=== PATIENT | female | born 1950 | race Caucasian/White ===

== ENCOUNTER 2018-10-30 16:26 | Emergency (ER) | payer MEDICARE, OTHER, SELFPAY ==
--- NOTE | 2018-10-30 | DI.RAD.S_ITS ---
PROCEDURE: XR FEMUR LT MIN 2V INDICATIONS: FALL TECHNIQUE: 2 views of the femur were acquired. COMPARISON: None. FINDINGS: Bones: Comminuted fracture of the distal left femur is noted. Postsurgical changes compatible with prior left knee arthroplasty. Soft tissues: No suspicious soft tissue calcifications or masses. IMPRESSION: Distal left femur periprosthetic fracture. Dictated by: Stacie Dias MD, PhD on 10/30/2018 at 17:30 Approved by: Stacie Dias MD, PhD on 10/30/2018 at 17:30
--- NOTE | 2018-10-30 | DI.RAD.S_ITS ---
PROCEDURE: XR CHEST 1V INDICATIONS: FALL TECHNIQUE: One view of the chest was acquired. COMPARISON: None. FINDINGS: Surgical changes and devices: None. Lungs and pleura: On this supine examination, no large pneumothorax or large pleural effusions are seen. No focal areas of lung consolidation are seen. Low lung volumes are noted. This causes a crowded appearance to the lung markings and limits evaluation. Mediastinum: Mediastinal contours appear normal. Heart size is normal. Bones and chest wall: No suspicious bony lesions. Age-appropriate bony degenerative changes are seen. Overlying soft tissues appear unremarkable. IMPRESSION: Limited portable chest examination, without a significant acute abnormality identified. If there is strong clinical concern for an intrathoracic posttraumatic abnormality, then please consider a dedicated chest CT with contrast for further evaluation. Dictated by: Prabhu Chan M.D. on 10/30/2018 at 16:20 Approved by: Prabhu Chan M.D. on 10/30/2018 at 16:21
[2018-10-30 16:34] VITALS: BP 198/105; PULSE 80; RESP 18; TEMP 36.7; O2SAT 100
--- NOTE | 2018-10-30 16:49 | DI.RAD.S_ITS ---
PROCEDURE: XR KNEE LT 3V INDICATIONS: fall / pain TECHNIQUE: 3 views of the knee were acquired. COMPARISON: None. FINDINGS: Bones: Postsurgical changes compatible with prior left knee arthroplasty noted. Hamate fracture of the distal femur fracture. Soft tissues: No joint effusion. No suspicious soft tissue calcifications. IMPRESSION: Distal left femur periprosthetic fracture. Dictated by: Stacie Dias MD, PhD on 10/30/2018 at 17:29 Approved by: Stacie Dias MD, PhD on 10/30/2018 at 17:29
--- NOTE | 2018-10-30 16:49 | DI.RAD.S_ITS ---
PROCEDURE: XR TIBIA FIBULA RT 2V INDICATIONS: fall / pain TECHNIQUE: 2 views of the tibia and fibula were acquired. COMPARISON: None. FINDINGS: Bones: No fractures or dislocations. No suspicious bony lesions. Large calcaneal bone spur is incidentally noted. Soft tissues: No suspicious soft tissue calcifications or masses. IMPRESSION: No fracture. No osseous lesion. If there are persistent symptoms or clinical suspicion for pathology, then repeat radiographs or advanced imaging (CT, MRI or bone scan) should be considered for further evaluation. Dictated by: Stacie Dias MD, PhD on 10/30/2018 at 17:27 Approved by: Stacie Dias MD, PhD on 10/30/2018 at 17:27
--- NOTE | 2018-10-30 16:49 | DI.RAD.S_ITS ---
PROCEDURE: XR HAND RT MIN 3V INDICATIONS: fall / pain TECHNIQUE: 3 views of the hand(s) acquired. COMPARISON: None. FINDINGS: Bones: Comminuted fracture of the distal radius which extends into the radiocarpal and distal radioulnar joints noted. Displaced ulnar styloid process fracture. Soft tissues: No suspicious soft tissue calcifications. IMPRESSION: Distal radius and ulna fractures. Dictated by: Stacie Dias MD, PhD on 10/30/2018 at 17:28 Approved by: Stacie Dias MD, PhD on 10/30/2018 at 17:28
--- NOTE | 2018-10-30 17:07 | DI.CT.S_ITS ---
PROCEDURE: CT LE LT W CON INDICATIONS: fracture - left femur TECHNIQUE: Noncontrast 3 mm axial sections acquired of the left femur, with coronal and sagittal reformats. COMPARISON: None. FINDINGS: Image quality: Excellent. Bones: Postsurgical changes compatible with left knee arthroplasty noted. Comminuted fracture of the left femur is noted. Fracture fragments are displaced medially and proximally. Soft tissues: Mild soft tissue swelling noted adjacent to the distal left femur fracture. Scattered atherosclerotic calcifications noted in the visualized pelvic and left lower extremity musculature. Scattered diverticuli noted in the visualized colon without evidence of diverticulitis. IMPRESSION: Distal left femur comminuted periprosthetic fracture. Dictated by: Stacie Dias MD, PhD on 10/30/2018 at 17:31 Approved by: Stacie Dias MD, PhD on 10/30/2018 at 17:33
--- NOTE | 2018-10-30 17:13 | ED.LOWEXIN ---
HPI - Extremity Injury (Lower) <Mikayla Faith, [employer]ER-BC - Last Filed: 10/30/18 21:07> General Chief Complaint: Extremity Injury, Lower Stated Complaint: L knee pain and R wrist Time Seen by Provider: 10/30/18 17:20 Source: patient, family and EMS Mode of arrival: EMS Limitations: no limitations History of Present Illness HPI Narrative: The patient is a 68-year-old female former smoker presents with her and family by EMS. She had a ground level fall just prior to arrival and complains of left leg as well as right wrist pain. she has a history of stroke, is on Plavix. She states she hit her head. Denies loss of consciousness. Does not complain of nausea vomiting or diarrhea. She does not have fever. She insists that she tripped and fell and that it was a mechanical fall. She denies any lightheadedness. She denies any neck or back pain, but states that her pain is mostly around her left knee. She states that her tetanus was within the past 5 years and is up-to-date. She does have history of knee replacements. Related Data Home Medications Medication Instructions Recorded Confirmed albuterol sulfate [Ventolin HFA] 2 puff INH Q4HP PRN #0 puff 04/26/13 10/30/18 oxybutynin chloride 15 mg PO BID #0 04/26/13 10/30/18 amlodipine [Norvasc] 5 mg PO DAILY #0 05/02/17 10/30/18 atorvastatin 80 mg PO BEDTIME #0 05/02/17 10/30/18 fluticasone propionate [Flonase 1 spray INTRANASAL BID #0 05/02/17 10/30/18 Allergy Relief] amoxicillin 2,000 mg PO .ONCE 10/30/18 10/30/18 cholecalciferol (vitamin D3) 5,000 unit PO DAILY 10/30/18 10/30/18 [Vitamin D3] clopidogrel 75 mg PO DAILY 10/30/18 10/30/18 losartan 100 mg PO DAILY 10/30/18 10/30/18 methocarbamol 1,500 mg PO Q6HP PRN 10/30/18 10/30/18 Allergies Allergy/AdvReac Type Severity Reaction Status Date / Time adhesive [ADHESIVE] Allergy Severe WATER Verified 10/30/18 16:36 BLISTERS *PAPER/SILK TAPE OK* chicken derived Allergy Severe DIARRHEA, Verified 10/30/18 16:36 [CHICKEN DERIVED] VOMITING, STOMACH CRAMPS Review of Systems <JEANNE Navarro - Last Filed: 10/30/18 21:07> Review of Systems GENERAL: Denies chills, fatigue, malaise, fever, sweats. HEENT: Denies sinus pain, ear pain, sore throat, difficulty swallowing, dizziness. RESPIRATORY: Denies dyspnea, cough, wheezing, hemoptysis, sputum. CARDIOVASCULAR: Denies chest pain, palpitations, orthopnea, edema, GASTROINTESTINAL: Denies nausea, vomiting, abdominal pain, diarrhea, constipation, melena. : Denies dysuria, frequency, incontinence, hematuria, urinary retention. MUSCULOSKELETAL: See HPI SKIN: See HPI NEUROLOGIC: Denies weakness, headache, numbness, change in speech, confusion, seizures, incoordination. PSYCHIATRIC: No concerning psychosocial issues. 12 point review of systems is negative except for those stated above PFSH <JEANNE Navarro - Last Filed: 10/30/18 21:07> Medical History (Updated 10/30/18 @ 20:54 by JEANNE Navarro) Morbid obesity (Acute) Social History Smoking Status: Former smoker Social History Smoking Status: Former smoker Exam <JEANNE Navarro - Last Filed: 10/30/18 21:07> Narrative Exam Narrative: GENERAL: Morbidly obese patient lying on stretcher HEAD: Atraumatic. Normocephalic. No temporal or scalp tenderness. EYES: Pupils equal round and reactive. Extraocular motions intact. No scleral icterus. No injection or drainage. ENT: Nose without bleeding, purulent drainage or septal hematoma. Throat without erythema, tonsillar hypertrophy or exudate. Uvula midline. Airway patent. NECK: Trachea midline. No JVD or lymphadenopathy. Supple, nontender, no meningeal signs. CARDIOVASCULAR: Regular rate and rhythm without murmurs, gallops, or rubs. RESPIRATORY: Clear to auscultation. Breath sounds equal bilaterally. No wheezes, rales, or rhonchi. No cough. No increased respiratory effort. GASTROINTESTINAL: Abdomen soft, non-tender, nondistended. No hepato-splenomegaly, or palpable masses. No guarding. active bowel sounds. EXTREMITIES: EMS splint in place left leg. Positive pedal pulses left foot. Patient is able to wiggle left toes. Pain to palpation right wrist. Positive radial pulse right wrist. BACK: Nontender without deformity or crepitance. No flank tenderness. NEURO: AOx3. Interactive. Appropriate. SKIN: Laceration noted right hand Initial Vital Signs Initial Vital Signs: Vital Signs Temperature 98.0 F 10/30/18 16:34 Pulse Rate 80 10/30/18 16:34 Respiratory Rate 18 10/30/18 16:34 Blood Pressure 198/105 H 10/30/18 16:34 Pulse Oximetry 100 10/30/18 16:34 <Prosper Lagunas MD - Last Filed: 10/31/18 02:03> Initial Vital Signs Initial Vital Signs: Vital Signs Temperature 98.0 F 10/30/18 16:34 Pulse Rate 80 10/30/18 16:34 Respiratory Rate 18 10/30/18 16:34 Blood Pressure 198/105 H 10/30/18 16:34 Pulse Oximetry 100 10/30/18 16:34 Procedures <JEANNE Navarro - Last Filed: 10/30/18 21:07> Orthopedic Splinting/Casting Injury #1: Side: right Upper Extremity Injury Location: wrist Upper Extremity Immobilizer: wrist splint Post splinting neuro exam: intact Post splinting vascular exam: intact Placed by: Nursing Course <JEANNE Navarro - Last Filed: 10/30/18 21:07> Orders Ordered: ED Orders 10/30/18 17:07 CT LE LT wo con Stat 10/30/18 17:25 CT head/brain wo con Stat 10/30/18 18:45 Complete Blood Count AUTO DIFF Stat Comprehensive Metabolic Panel Stat Type and Screen Stat 10/30/18 19:25 Partial Thromboplastin Time Stat Prothrombin Time INR Stat Discontinued Medications Sodium Chloride (Normal Saline 0.9%) 1,000 mls @ 1,000 mls/hr IV BOLUS ONE Stop: 10/30/18 18:25 Last Infusion: 10/30/18 20:20 Dose: 0 mls/hr Admin: 10/30/18 18:25 Dose: 1,000 mls/hr Morphine Sulfate (Morphine) 4 mg IV NOW ONE Stop: 10/30/18 17:27 Last Admin: 10/30/18 17:25 Dose: 4 mg Morphine Sulfate (Morphine) 4 mg IV PRN PRN PRN Reason: Pain, Moderate (4-6) Last Admin: 10/30/18 19:14 Dose: 4 mg Ondansetron HCl (Zofran) 4 mg IV NOW ONE Stop: 10/30/18 17:27 Last Admin: 10/30/18 17:30 Dose: 4 mg Vital Signs - 8 hr 10/30/18 18:30 10/30/18 19:00 10/30/18 19:49 Temperature Pulse Rate 60 78 Respiratory Rate 14 20 18 Blood Pressure Blood Pressure [Right Arm] 145/88 H 118/88 133/102 H Pulse Oximetry 98 2 L 94 10/30/18 20:40 Temperature 98.0 F Pulse Rate 78 Respiratory Rate 18 Blood Pressure 128/81 Blood Pressure [Right Arm] Pulse Oximetry 94 <Prosper Lagunas MD - Last Filed: 10/31/18 02:03> Orders Ordered: ED Orders 10/30/18 17:07 CT LE LT wo con Stat 10/30/18 17:25 CT head/brain wo con Stat 10/30/18 18:45 Complete Blood Count AUTO DIFF Stat Comprehensive Metabolic Panel Stat Type and Screen Stat 10/30/18 19:25 Partial Thromboplastin Time Stat Prothrombin Time INR Stat Discontinued Medications Sodium Chloride (Normal Saline 0.9%) 1,000 mls @ 1,000 mls/hr IV BOLUS ONE Stop: 10/30/18 18:25 Last Infusion: 10/30/18 20:20 Dose: 0 mls/hr Admin: 10/30/18 18:25 Dose: 1,000 mls/hr Morphine Sulfate (Morphine) 4 mg IV NOW ONE Stop: 10/30/18 17:27 Last Admin: 10/30/18 17:25 Dose: 4 mg Morphine Sulfate (Morphine) 4 mg IV PRN PRN PRN Reason: Pain, Moderate (4-6) Last Admin: 10/30/18 19:14 Dose: 4 mg Ondansetron HCl (Zofran) 4 mg IV NOW ONE Stop: 10/30/18 17:27 Last Admin: 10/30/18 17:30 Dose: 4 mg Vital Signs - 8 hr 10/30/18 18:30 10/30/18 19:00 10/30/18 19:49 Temperature Pulse Rate 60 78 Respiratory Rate 14 20 18 Blood Pressure Blood Pressure [Right Arm] 145/88 H 118/88 133/102 H Pulse Oximetry 98 2 L 94 10/30/18 20:40 Temperature 98.0 F Pulse Rate 78 Respiratory Rate 18 Blood Pressure 128/81 Blood Pressure [Right Arm] Pulse Oximetry 94 MDM - Extremity Injury (Lower) <ALEXANDR Navarro-BC - Last Filed: 10/30/18 21:07> Lab Data Result diagrams: 10/30/18 18:45 10/30/18 18:45 Lab Results 10/30/18 10/30/18 10/30/18 Range/Units 18:45 18:45 18:45 WBC 16.5 H (4.5-11.0) X10^3/uL RBC 4.44 (4.0-5.2) X10^6/uL Hgb 13.3 (12.0-16.0) g/dL Hct 40.8 (36-46) % MCV 91.8 (80-100) fL MCH 29.9 (26-34) PG MCHC 32.6 (30-36) % RDW 15.8 H (11.6-14.8) % Plt Count 173 (150-400) X10^3/uL Neut % (Auto) 86.9 H (50-75) % Lymph % (Auto) 5.9 L (25-40) % [place] % (Auto) 6.5 (3-14) % Eos % (Auto) 0.3 L (2-4) % Baso % (Auto) 0.4 (0-2) % Neut # (Auto) 25431 H (3933-9689) /uL Lymph # (Auto) 1000 L (9965-3240) /uL [place] # (Auto) 1100 H (0-900) /uL Eos # (Auto) 0 (0-450) /uL Baso # (Auto) 100 (0-100) /uL PT (10.1-12.7) SECONDS INR (0.9-1.3) APTT (26.4-36.2) SECONDS Sodium 137 (137-145) mmol/L Potassium 4.5 (3.4-5.1) mmol/L Chloride 103 (98-107) mmol/L Carbon Dioxide 26 (22-32) mmol/L BUN 24 H (7-17) mg/dL Creatinine 0.90 (0.52-1.04) mg/dL Estimated GFR > 60.0 (>60) mL/min BUN/Creatinine Ratio 26.7 H (6-22) Glucose 139 H (80-110) mg/dL Calcium 9.1 (8.4-10.2) mg/dL Total Bilirubin 0.6 (0.2-1.3) mg/dL AST 170 H (14-36) IU/L ALT 121 H (9-52) IU/L Alkaline Phosphatase 105 (38-126) U/L Total Protein 7.8 (6.3-8.2) g/dL Albumin 3.6 (3.5-5.0) g/dL Globulin 4.2 H (1.7-4.1) g/dL Albumin/Globulin Ratio 0.9 L (1.0-2.8) Blood Type A Positive Antibody Screen Negative 10/30/18 Range/Units 19:25 WBC (4.5-11.0) X10^3/uL RBC (4.0-5.2) X10^6/uL Hgb (12.0-16.0) g/dL Hct (36-46) % MCV (80-100) fL MCH (26-34) PG MCHC (30-36) % RDW (11.6-14.8) % Plt Count (150-400) X10^3/uL Neut % (Auto) (50-75) % Lymph % (Auto) (25-40) % [place] % (Auto) (3-14) % Eos % (Auto) (2-4) % Baso % (Auto) (0-2) % Neut # (Auto) (6712-8266) /uL Lymph # (Auto) (0724-5086) /uL [place] # (Auto) (0-900) /uL Eos # (Auto) (0-450) /uL Baso # (Auto) (0-100) /uL PT 12.6 (10.1-12.7) SECONDS INR 1.1 (0.9-1.3) APTT 25 L (26.4-36.2) SECONDS Sodium (137-145) mmol/L Potassium (3.4-5.1) mmol/L Chloride (98-107) mmol/L Carbon Dioxide (22-32) mmol/L BUN (7-17) mg/dL Creatinine (0.52-1.04) mg/dL Estimated GFR (>60) mL/min BUN/Creatinine Ratio (6-22) Glucose (80-110) mg/dL Calcium (8.4-10.2) mg/dL Total Bilirubin (0.2-1.3) mg/dL AST (14-36) IU/L ALT (9-52) IU/L Alkaline Phosphatase (38-126) U/L Total Protein (6.3-8.2) g/dL Albumin (3.5-5.0) g/dL Globulin (1.7-4.1) g/dL Albumin/Globulin Ratio (1.0-2.8) Blood Type Antibody Screen Imaging Data CT scan - head: Radiologist's impression: [place] [address] CT Scan Report Signed Patient: Socorro Valenzuela CMR#: [id number] : 8Acct:[id number] Age/Sex: 68 / FDate of Service: 10/30/18 Loc: Accession Number: [id number] Procedure: CT head/brain wo con Ordering Provider: Mikayla Faith [facility] PROCEDURE: CT HEAD/BRAIN WO CON INDICATIONS: glf on plavix TECHNIQUE: Noncontrast 4.5 mm thick angled axial sections acquired from the foramen magnum to the vertex, with coronal and sagittal reformats. For radiation dose reduction, the following was used: automated exposure control, adjustment of mA and/or kV according to patient size. COMPARISON: None. FINDINGS: Image quality: Excellent. CSF spaces: Basal cisterns are patent. No extra-axial fluid collections. The ventricles are symmetric in size and shape. Brain: No intracranial bleeds or masses. Chronic right thalamic and right putamen lacunar infarcts. There is moderate cerebral volume loss for age, with resultant ventricular and sulcal prominence. There are severe periventricular and deep white matter chronic small vessel ischemic changes. There is intracranial internal carotid artery and vertebral artery atherosclerosis. Skull and face: Calvarium and visualized facial bones appear intact, without suspicious lesions. Sinuses: Visualized sinuses and mastoids are clear. IMPRESSION: 1. No acute intracranial disease process. 2. No intracranial hemorrhage. 3. Old right thalamic and right putamen lacunar infarcts. 4. Moderate, diffuse cerebral volume loss. 5. Severe periventricular and subcortical white matter chronic microvascular ischemic changes. Dictated by: Stacie Dias MD, PhD on 10/30/2018 at 18:39 Approved by: Stacie Dias MD, PhD on 10/30/2018 at 18:[address]: Radiologist's impression: [address] [address] [address] Scan Report Signed Patient: Socorro Valenzuela CMR#: [id number] : 8Acct:[id number] Age/Sex: 68 / FDate of Service: 10/30/18 Loc: ED Accession Number: [id number] Procedure: CT LE LT wo con Ordering Provider: Mikayla Faith [facility] PROCEDURE: CT LE LT W CON INDICATIONS: fracture - left femur TECHNIQUE: Noncontrast 3 mm axial sections acquired of the left femur, with coronal and sagittal reformats. COMPARISON: None. FINDINGS: Image quality: Excellent. Bones: Postsurgical changes compatible with left knee arthroplasty noted. Comminuted fracture of the left femur is noted. Fracture fragments are displaced medially and proximally. Soft tissues: Mild soft tissue swelling noted adjacent to the distal left femur fracture. Scattered atherosclerotic calcifications noted in the visualized pelvic and left lower extremity musculature. Scattered diverticuli noted in the visualized colon without evidence of diverticulitis. IMPRESSION: Distal left femur comminuted periprosthetic fracture. Dictated by: Stacie Dias MD, PhD on 10/30/2018 at 17:31 Approved by: Stacie Dias MD, PhD on 10/30/2018 at 17:33 hand xray right : Radiologist's impression: [address] [address] XRay Report Signed Patient: Socorro Valenzuela CMR#: [id number] : 8Acct:[id number] Age/Sex: 68 / FDate of Service: 10/30/18 Loc: ED Accession Number: [id number] Procedure: XR hand RT min 3V Ordering Provider: Mikayla Woodard D.O. PROCEDURE: XR HAND RT MIN 3V INDICATIONS: fall / pain TECHNIQUE: 3 views of the hand(s) acquired. COMPARISON: None. FINDINGS: Bones: Comminuted fracture of the distal radius which extends into the radiocarpal and distal radioulnar joints noted. Displaced ulnar styloid process fracture. Soft tissues: No suspicious soft tissue calcifications. IMPRESSION: Distal radius and ulna fractures. Dictated by: Stacie Dias MD, PhD on 10/30/2018 at 17:28 Approved by: Stacie Dias MD, PhD on 10/30/2018 at 17:28 left knee xray : Radiologist's impression: Socorro Valenzuela 68 F [address] [address] XRay Report Signed Patient: Socorro Valenzuela CMR#: [id number] : 1950cct:[id number] Age/Sex: 68 / FDate of Service: 10/30/18 Loc: ED Accession Number: [id number] Procedure: XR knee LT 3V Ordering Provider: Mikayla Woodard D.O. PROCEDURE: XR KNEE LT 3V INDICATIONS: fall / pain TECHNIQUE: 3 views of the knee were acquired. COMPARISON: None. FINDINGS: Bones: Postsurgical changes compatible with prior left knee arthroplasty noted. Hamate fracture of the distal femur fracture. Soft tissues: No joint effusion. No suspicious soft tissue calcifications. IMPRESSION: Distal left femur periprosthetic fracture. Dictated by: Stacie Dias MD, PhD on 10/30/2018 at 17:29 Approved by: Stacie Dias MD, PhD on 10/30/2018 at 17:29 left tib fib : Radiologist's impression: Socorro Valenzuela 68 F [address] [address] XRay Report Signed Patient: Socorro Valenzuela CMR#: [id number] : 8Acct:[id number] Age/Sex: 68 / FDate of Service: 10/30/18 Loc: ED Accession Number: [id number] Procedure: XR tibia fibula LT 2V Ordering Provider: Mikayla Woodard D.O. PROCEDURE: XR TIBIA FIBULA RT 2V INDICATIONS: fall / pain TECHNIQUE: 2 views of the tibia and fibula were acquired. COMPARISON: None. FINDINGS: Bones: No fractures or dislocations. No suspicious bony lesions. Large calcaneal bone spur is incidentally noted. Soft tissues: No suspicious soft tissue calcifications or masses. IMPRESSION: No fracture. No osseous lesion. If there are persistent symptoms or clinical suspicion for pathology, then repeat radiographs or advanced imaging (CT, MRI or bone scan) should be considered for further evaluation. Dictated by: Stacie Dias MD, PhD on 10/30/2018 at 17:27 Approved by: Stacie Dias MD, PhD on 10/30/2018 at 17:27 [facility] Narrative Medical decision making narrative: The patient is a 68-year-old female who presents after a ground level fall with a complicated femur fracture. I spoke with Dr. Gruber from [facility], who states that the patient's case is too complicated for this facility. Thus the images were pushed down to [facility] and I spoke with Dr. Jacobs at 6:42 p.m who kindly accepted the patient for transfer. The patient was hemodynamically stable throughout her stay in the emergency department. She was treated with morphine for pain. a removable wrist splint was placed for comfort prior to specialist evaluation. She was neurovascularly intact throughout her stay in the emergency department. Patient has no questions or concerns regarding transfer and is okay with transfer. <Prosper Lagunas MD - Last Filed: 10/31/18 02:03> Lab Data Lab Results 10/30/18 10/30/18 10/30/18 Range/Units 18:45 18:45 18:45 WBC 16.5 H (4.5-11.0) X10^3/uL RBC 4.44 (4.0-5.2) X10^6/uL Hgb 13.3 (12.0-16.0) g/dL Hct 40.8 (36-46) % MCV 91.8 (80-100) fL MCH 29.9 (26-34) PG MCHC 32.6 (30-36) % RDW 15.8 H (11.6-14.8) % Plt Count 173 (150-400) X10^3/uL Neut % (Auto) 86.9 H (50-75) % Lymph % (Auto) 5.9 L (25-40) % [place] % (Auto) 6.5 (3-14) % Eos % (Auto) 0.3 L (2-4) % Baso % (Auto) 0.4 (0-2) % Neut # (Auto) 62285 H (0592-4650) /uL Lymph # (Auto) 1000 L (6995-9033) /uL [place] # (Auto) 1100 H (0-900) /uL Eos # (Auto) 0 (0-450) /uL Baso # (Auto) 100 (0-100) /uL PT (10.1-12.7) SECONDS INR (0.9-1.3) APTT (26.4-36.2) SECONDS Sodium 137 (137-145) mmol/L Potassium 4.5 (3.4-5.1) mmol/L Chloride 103 (98-107) mmol/L Carbon Dioxide 26 (22-32) mmol/L BUN 24 H (7-17) mg/dL Creatinine 0.90 (0.52-1.04) mg/dL Estimated GFR > 60.0 (>60) mL/min BUN/Creatinine Ratio 26.7 H (6-22) Glucose 139 H (80-110) mg/dL Calcium 9.1 (8.4-10.2) mg/dL Total Bilirubin 0.6 (0.2-1.3) mg/dL AST 170 H (14-36) IU/L ALT 121 H (9-52) IU/L Alkaline Phosphatase 105 (38-126) U/L Total Protein 7.8 (6.3-8.2) g/dL Albumin 3.6 (3.5-5.0) g/dL Globulin 4.2 H (1.7-4.1) g/dL Albumin/Globulin Ratio 0.9 L (1.0-2.8) Blood Type A Positive Antibody Screen Negative 10/30/18 Range/Units 19:25 WBC (4.5-11.0) X10^3/uL RBC (4.0-5.2) X10^6/uL Hgb (12.0-16.0) g/dL Hct (36-46) % MCV (80-100) fL MCH (26-34) PG MCHC (30-36) % RDW (11.6-14.8) % Plt Count (150-400) X10^3/uL Neut % (Auto) (50-75) % Lymph % (Auto) (25-40) % [place] % (Auto) (3-14) % Eos % (Auto) (2-4) % Baso % (Auto) (0-2) % Neut # (Auto) (6247-0669) /uL Lymph # (Auto) (4755-2904) /uL [place] # (Auto) (0-900) /uL Eos # (Auto) (0-450) /uL Baso # (Auto) (0-100) /uL PT 12.6 (10.1-12.7) SECONDS INR 1.1 (0.9-1.3) APTT 25 L (26.4-36.2) SECONDS Sodium (137-145) mmol/L Potassium (3.4-5.1) mmol/L Chloride (98-107) mmol/L Carbon Dioxide (22-32) mmol/L BUN (7-17) mg/dL Creatinine (0.52-1.04) mg/dL Estimated GFR (>60) mL/min BUN/Creatinine Ratio (6-22) Glucose (80-110) mg/dL Calcium (8.4-10.2) mg/dL Total Bilirubin (0.2-1.3) mg/dL AST (14-36) IU/L ALT (9-52) IU/L Alkaline Phosphatase (38-126) U/L Total Protein (6.3-8.2) g/dL Albumin (3.5-5.0) g/dL Globulin (1.7-4.1) g/dL Albumin/Globulin Ratio (1.0-2.8) Blood Type Antibody Screen Discharge Plan Departure Patient Disposition: [facility] Clinical Impression: Fall from ground level Fracture of wrist Qualifiers: Encounter type: initial encounter Fracture type: closed Laterality: right Qualified Code(s): S62.101A - Fracture of unspecified carpal bone, right wrist, initial encounter for closed fracture Femur fracture, left Qualifiers: Encounter type: initial encounter Femur location: shaft Fracture type: closed Fracture morphology: comminuted Fracture alignment: displaced Qualified Code(s): S72.352A - Displaced comminuted fracture of shaft of left femur, initial encounter for closed fracture Discharge Date/Time: 10/30/18 20:45 Interventions: ED Discharge Assessment Last Done: 10/30/18 20:40 Prescriptions: No Action oxybutynin chloride 15 MG tablet extended release 24hr 15 mg PO BID Qty: 0 RF: 0 albuterol sulfate [Ventolin HFA] 90 MCG/PUFF HFA aerosol inhaler 2 puff INH Q4HP PRN (Reason: Shortness Of Breath) Qty: 0 RF: 0 amlodipine [Norvasc] 5 MG tablet 5 mg PO DAILY Qty: 0 RF: 0 atorvastatin 80 MG tablet 80 mg PO BEDTIME Qty: 0 RF: 0 fluticasone propionate [Flonase Allergy Relief] 9.9 ML spray,suspension 1 spray Intranasal BID Qty: 0 RF: 0 amoxicillin 500 mg Capsule 2,000 mg PO .ONCE RF: 0 clopidogrel 75 mg Tablet 75 mg PO DAILY RF: 0 losartan 100 mg Tablet 100 mg PO DAILY RF: 0 cholecalciferol (vitamin D3) [Vitamin D3] 5,000 unit Tablet 5,000 unit PO DAILY RF: 0 methocarbamol 750 MG tablet 1,500 mg PO Q6HP PRN (Reason: Spasms) RF: 0 Referrals: Duy Howell MD [Primary Care Provider] - <Prosper Lagunas MD - Last Filed: 10/31/18 02:03> Cosign ED Attending Cosignature Attestation: I was present in the ER at the time this patient's care. I was available for consultation or to see the patient directly if required. I agree with the evaluation, assessment and treatment plan.
[2018-10-30] MEDS: MORPHINE 4 MG/ML INJ IV ×2 (17:25→19:14)
--- NOTE | 2018-10-30 17:25 | DI.CT.S_ITS ---
PROCEDURE: CT HEAD/BRAIN WO CON INDICATIONS: glf on plavix TECHNIQUE: Noncontrast 4.5 mm thick angled axial sections acquired from the foramen magnum to the vertex, with coronal and sagittal reformats. For radiation dose reduction, the following was used: automated exposure control, adjustment of mA and/or kV according to patient size. COMPARISON: None. FINDINGS: Image quality: Excellent. CSF spaces: Basal cisterns are patent. No extra-axial fluid collections. The ventricles are symmetric in size and shape. Brain: No intracranial bleeds or masses. Chronic right thalamic and right putamen lacunar infarcts. There is moderate cerebral volume loss for age, with resultant ventricular and sulcal prominence. There are severe periventricular and deep white matter chronic small vessel ischemic changes. There is intracranial internal carotid artery and vertebral artery atherosclerosis. Skull and face: Calvarium and visualized facial bones appear intact, without suspicious lesions. Sinuses: Visualized sinuses and mastoids are clear. IMPRESSION: 1. No acute intracranial disease process. 2. No intracranial hemorrhage. 3. Old right thalamic and right putamen lacunar infarcts. 4. Moderate, diffuse cerebral volume loss. 5. Severe periventricular and subcortical white matter chronic microvascular ischemic changes. Dictated by: Stacie Dias MD, PhD on 10/30/2018 at 18:39 Approved by: Stacie Dias MD, PhD on 10/30/2018 at 18:42
[2018-10-30] MEDS: ONDANSETRON 4 MG/2 ML INJ IV (17:30)
--- NOTE | 2018-10-30 18:22 | ED_ITS ---
HPI - Extremity Injury (Lower) <Mikayla Faith, [employer]-BC - Last Filed: 10/30/18 21:07> General Chief Complaint: Extremity Injury, Lower Stated Complaint: L knee pain and R wrist Time Seen by Provider: 10/30/18 17:20 Source: patient, family and EMS Mode of arrival: EMS Limitations: no limitations History of Present Illness HPI Narrative: The patient is a 68-year-old female former smoker presents with her and family by EMS. She had a ground level fall just prior to arrival and complains of left leg as well as right wrist pain. she has a history of stroke, is on Plavix. She states she hit her head. Denies loss of consciousness. Does not complain of nausea vomiting or diarrhea. She does not have fever. She insists that she tripped and fell and that it was a mechanical fall. She denies any lightheadedness. She denies any neck or back pain, but states that her pain is mostly around her left knee. She states that her tetanus was within the past 5 years and is up-to-date. She does have history of knee replacements. Related Data Home Medications Medication Instructions Recorded Confirmed albuterol sulfate [Ventolin HFA] 2 puff INH Q4HP PRN #0 puff 04/26/13 10/30/18 oxybutynin chloride 15 mg PO BID #0 04/26/13 10/30/18 amlodipine [Norvasc] 5 mg PO DAILY #0 05/02/17 10/30/18 atorvastatin 80 mg PO BEDTIME #0 05/02/17 10/30/18 fluticasone propionate [Flonase 1 spray INTRANASAL BID #0 05/02/17 10/30/18 Allergy Relief] amoxicillin 2,000 mg PO .ONCE 10/30/18 10/30/18 cholecalciferol (vitamin D3) 5,000 unit PO DAILY 10/30/18 10/30/18 [Vitamin D3] clopidogrel 75 mg PO DAILY 10/30/18 10/30/18 losartan 100 mg PO DAILY 10/30/18 10/30/18 methocarbamol 1,500 mg PO Q6HP PRN 10/30/18 10/30/18 Allergies Allergy/AdvReac Type Severity Reaction Status Date / Time adhesive [ADHESIVE] Allergy Severe WATER Verified 10/30/18 16:36 BLISTERS *PAPER/SILK TAPE OK* chicken derived Allergy Severe DIARRHEA, Verified 10/30/18 16:36 [CHICKEN DERIVED] VOMITING, STOMACH CRAMPS Review of Systems <JEANNE Navarro - Last Filed: 10/30/18 21:07> Review of Systems GENERAL: Denies chills, fatigue, malaise, fever, sweats. HEENT: Denies sinus pain, ear pain, sore throat, difficulty swallowing, dizziness. RESPIRATORY: Denies dyspnea, cough, wheezing, hemoptysis, sputum. CARDIOVASCULAR: Denies chest pain, palpitations, orthopnea, edema, GASTROINTESTINAL: Denies nausea, vomiting, abdominal pain, diarrhea, constipation, melena. : Denies dysuria, frequency, incontinence, hematuria, urinary retention. MUSCULOSKELETAL: See HPI SKIN: See HPI NEUROLOGIC: Denies weakness, headache, numbness, change in speech, confusion, seizures, incoordination. PSYCHIATRIC: No concerning psychosocial issues. 12 point review of systems is negative except for those stated above PFSH <JEANNE Navarro - Last Filed: 10/30/18 21:07> Medical History (Updated 10/30/18 @ 20:54 by JEANNE Navarro) Morbid obesity (Acute) Social History Smoking Status: Former smoker Social History Smoking Status: Former smoker Exam <JEANNE Navarro - Last Filed: 10/30/18 21:07> Narrative Exam Narrative: GENERAL: Morbidly obese patient lying on stretcher HEAD: Atraumatic. Normocephalic. No temporal or scalp tenderness. EYES: Pupils equal round and reactive. Extraocular motions intact. No scleral icterus. No injection or drainage. ENT: Nose without bleeding, purulent drainage or septal hematoma. Throat without erythema, tonsillar hypertrophy or exudate. Uvula midline. Airway patent. NECK: Trachea midline. No JVD or lymphadenopathy. Supple, nontender, no meningeal signs. CARDIOVASCULAR: Regular rate and rhythm without murmurs, gallops, or rubs. RESPIRATORY: Clear to auscultation. Breath sounds equal bilaterally. No wheezes, rales, or rhonchi. No cough. No increased respiratory effort. GASTROINTESTINAL: Abdomen soft, non-tender, nondistended. No hepato- splenomegaly, or palpable masses. No guarding. active bowel sounds. EXTREMITIES: EMS splint in place left leg. Positive pedal pulses left foot. Patient is able to wiggle left toes. Pain to palpation right wrist. Positive radial pulse right wrist. BACK: Nontender without deformity or crepitance. No flank tenderness. NEURO: AOx3. Interactive. Appropriate. SKIN: Laceration noted right hand Initial Vital Signs Initial Vital Signs: Vital Signs Temperature 98.0 F 10/30/18 16:34 Pulse Rate 80 10/30/18 16:34 Respiratory Rate 18 10/30/18 16:34 Blood Pressure 198/105 H 10/30/18 16:34 Pulse Oximetry 100 10/30/18 16:34 <Prosper Lagunas MD - Last Filed: 10/31/18 02:03> Initial Vital Signs Initial Vital Signs: Vital Signs Temperature 98.0 F 10/30/18 16:34 Pulse Rate 80 10/30/18 16:34 Respiratory Rate 18 10/30/18 16:34 Blood Pressure 198/105 H 10/30/18 16:34 Pulse Oximetry 100 10/30/18 16:34 Procedures <JEANNE Navarro - Last Filed: 10/30/18 21:07> Orthopedic Splinting/Casting Injury #1: Side: right Upper Extremity Injury Location: wrist Upper Extremity Immobilizer: wrist splint Post splinting neuro exam: intact Post splinting vascular exam: intact Placed by: Nursing Course <JEANNE Navarro - Last Filed: 10/30/18 21:07> Orders Ordered: ED Orders 10/30/18 17:07 CT LE LT wo con Stat 10/30/18 17:25 CT head/brain wo con Stat 10/30/18 18:45 Complete Blood Count AUTO DIFF Stat Comprehensive Metabolic Panel Stat Type and Screen Stat 10/30/18 19:25 Partial Thromboplastin Time Stat Prothrombin Time INR Stat Discontinued Medications Sodium Chloride (Normal Saline 0.9%) 1,000 mls @ 1,000 mls/hr IV BOLUS ONE Stop: 10/30/18 18:25 Last Infusion: 10/30/18 20:20 Dose: 0 mls/hr Admin: 10/30/18 18:25 Dose: 1,000 mls/hr Morphine Sulfate (Morphine) 4 mg IV NOW ONE Stop: 10/30/18 17:27 Last Admin: 10/30/18 17:25 Dose: 4 mg Morphine Sulfate (Morphine) 4 mg IV PRN PRN PRN Reason: Pain, Moderate (4-6) Last Admin: 10/30/18 19:14 Dose: 4 mg Ondansetron HCl (Zofran) 4 mg IV NOW ONE Stop: 10/30/18 17:27 Last Admin: 10/30/18 17:30 Dose: 4 mg Vital Signs - 8 hr 10/30/18 18:30 10/30/18 19:00 10/30/18 19:49 Temperature Pulse Rate 60 78 Respiratory Rate 14 20 18 Blood Pressure Blood Pressure [Right Arm] 145/88 H 118/88 133/102 H Pulse Oximetry 98 2 L 94 10/30/18 20:40 Temperature 98.0 F Pulse Rate 78 Respiratory Rate 18 Blood Pressure 128/81 Blood Pressure [Right Arm] Pulse Oximetry 94 <Prosper Lagunas MD - Last Filed: 10/31/18 02:03> Orders Ordered: ED Orders 10/30/18 17:07 CT LE LT wo con Stat 10/30/18 17:25 CT head/brain wo con Stat 10/30/18 18:45 Complete Blood Count AUTO DIFF Stat Comprehensive Metabolic Panel Stat Type and Screen Stat 10/30/18 19:25 Partial Thromboplastin Time Stat Prothrombin Time INR Stat Discontinued Medications Sodium Chloride (Normal Saline 0.9%) 1,000 mls @ 1,000 mls/hr IV BOLUS ONE Stop: 10/30/18 18:25 Last Infusion: 10/30/18 20:20 Dose: 0 mls/hr Admin: 10/30/18 18:25 Dose: 1,000 mls/hr Morphine Sulfate (Morphine) 4 mg IV NOW ONE Stop: 10/30/18 17:27 Last Admin: 10/30/18 17:25 Dose: 4 mg Morphine Sulfate (Morphine) 4 mg IV PRN PRN PRN Reason: Pain, Moderate (4-6) Last Admin: 10/30/18 19:14 Dose: 4 mg Ondansetron HCl (Zofran) 4 mg IV NOW ONE Stop: 10/30/18 17:27 Last Admin: 10/30/18 17:30 Dose: 4 mg Vital Signs - 8 hr 10/30/18 18:30 10/30/18 19:00 10/30/18 19:49 Temperature Pulse Rate 60 78 Respiratory Rate 14 20 18 Blood Pressure Blood Pressure [Right Arm] 145/88 H 118/88 133/102 H Pulse Oximetry 98 2 L 94 10/30/18 20:40 Temperature 98.0 F Pulse Rate 78 Respiratory Rate 18 Blood Pressure 128/81 Blood Pressure [Right Arm] Pulse Oximetry 94 MDM - Extremity Injury (Lower) <ALEXANDR Navarro-BC - Last Filed: 10/30/18 21:07> Lab Data Result diagrams: 10/30/18 18:45 10/30/18 18:45 Lab Results 10/30/18 10/30/18 10/30/18 Range/Units 18:45 18:45 18:45 WBC 16.5 H (4.5-11.0) X10^3/uL RBC 4.44 (4.0-5.2) X10^6/uL Hgb 13.3 (12.0-16.0) g/dL Hct 40.8 (36-46) % MCV 91.8 (80-100) fL MCH 29.9 (26-34) PG MCHC 32.6 (30-36) % RDW 15.8 H (11.6-14.8) % Plt Count 173 (150-400) X10^3/uL Neut % (Auto) 86.9 H (50-75) % Lymph % (Auto) 5.9 L (25-40) % Ford % (Auto) 6.5 (3-14) % Eos % (Auto) 0.3 L (2-4) % Baso % (Auto) 0.4 (0-2) % Neut # (Auto) 79878 H (9853-3087) /uL Lymph # (Auto) 1000 L (2058-9196) /uL Ford # (Auto) 1100 H (0-900) /uL Eos # (Auto) 0 (0-450) /uL Baso # (Auto) 100 (0-100) /uL PT (10.1-12.7) SECONDS INR (0.9-1.3) APTT (26.4-36.2) SECONDS Sodium 137 (137-145) mmol/L Potassium 4.5 (3.4-5.1) mmol/L Chloride 103 (98-107) mmol/L Carbon Dioxide 26 (22-32) mmol/L BUN 24 H (7-17) mg/dL Creatinine 0.90 (0.52-1.04) mg/dL Estimated GFR > 60.0 (>60) mL/min BUN/Creatinine Ratio 26.7 H (6-22) Glucose 139 H (80-110) mg/dL Calcium 9.1 (8.4-10.2) mg/dL Total Bilirubin 0.6 (0.2-1.3) mg/dL AST 170 H (14-36) IU/L ALT 121 H (9-52) IU/L Alkaline Phosphatase 105 (38-126) U/L Total Protein 7.8 (6.3-8.2) g/dL Albumin 3.6 (3.5-5.0) g/dL Globulin 4.2 H (1.7-4.1) g/dL Albumin/Globulin Ratio 0.9 L (1.0-2.8) Blood Type A Positive Antibody Screen Negative 10/30/18 Range/Units 19:25 WBC (4.5-11.0) X10^3/uL RBC (4.0-5.2) X10^6/uL Hgb (12.0-16.0) g/dL Hct (36-46) % MCV (80-100) fL MCH (26-34) PG MCHC (30-36) % RDW (11.6-14.8) % Plt Count (150-400) X10^3/uL Neut % (Auto) (50-75) % Lymph % (Auto) (25-40) % Ford % (Auto) (3-14) % Eos % (Auto) (2-4) % Baso % (Auto) (0-2) % Neut # (Auto) (6562-3904) /uL Lymph # (Auto) (6638-6597) /uL Ford # (Auto) (0-900) /uL Eos # (Auto) (0-450) /uL Baso # (Auto) (0-100) /uL PT 12.6 (10.1-12.7) SECONDS INR 1.1 (0.9-1.3) APTT 25 L (26.4-36.2) SECONDS Sodium (137-145) mmol/L Potassium (3.4-5.1) mmol/L Chloride (98-107) mmol/L Carbon Dioxide (22-32) mmol/L BUN (7-17) mg/dL Creatinine (0.52-1.04) mg/dL Estimated GFR (>60) mL/min BUN/Creatinine Ratio (6-22) Glucose (80-110) mg/dL Calcium (8.4-10.2) mg/dL Total Bilirubin (0.2-1.3) mg/dL AST (14-36) IU/L ALT (9-52) IU/L Alkaline Phosphatase (38-126) U/L Total Protein (6.3-8.2) g/dL Albumin (3.5-5.0) g/dL Globulin (1.7-4.1) g/dL Albumin/Globulin Ratio (1.0-2.8) Blood Type Antibody Screen Imaging Data CT scan - head: Radiologist's impression: [place] [address] CT Scan Report Signed Patient: Socorro Valenzuela CMR#: [id number] : 8Acct:[id number] Age/Sex: 68 / FDate of Service: 10/30/18 Loc: Accession Number: [id number] Procedure: CT head/brain wo con Ordering Provider: Mikayla Faith [facility] PROCEDURE: CT HEAD/BRAIN WO CON INDICATIONS: glf on plavix TECHNIQUE: Noncontrast 4.5 mm thick angled axial sections acquired from the foramen magnum to the vertex, with coronal and sagittal reformats. For radiation dose reduction, the following was used: automated exposure control, adjustment of mA and/or kV according to patient size. COMPARISON: None. FINDINGS: Image quality: Excellent. CSF spaces: Basal cisterns are patent. No extra-axial fluid collections. The ventricles are symmetric in size and shape. Brain: No intracranial bleeds or masses. Chronic right thalamic and right putamen lacunar infarcts. There is moderate cerebral volume loss for age, with resultant ventricular and sulcal prominence. There are severe periventricular and deep white matter chronic small vessel ischemic changes. There is intracranial internal carotid artery and vertebral artery atherosclerosis. Skull and face: Calvarium and visualized facial bones appear intact, without suspicious lesions. Sinuses: Visualized sinuses and mastoids are clear. IMPRESSION: 1. No acute intracranial disease process. 2. No intracranial hemorrhage. 3. Old right thalamic and right putamen lacunar infarcts. 4. Moderate, diffuse cerebral volume loss. 5. Severe periventricular and subcortical white matter chronic microvascular ischemic changes. Dictated by: Stacie Dias MD, PhD on 10/30/2018 at 18:39 Approved by: Stacie Dias MD, PhD on 10/30/2018 at 18:[address]: Radiologist's impression: [address] [address] [address] Scan Report Signed Patient: Socorro Valenzuela CMR#: [id number] : 8Acct:[id number] Age/Sex: 68 / FDate of Service: 10/30/18 Loc: ED Accession Number: [id number] Procedure: CT LE LT wo con Ordering Provider: Mikayla Faith [facility] PROCEDURE: CT LE LT W CON INDICATIONS: fracture - left femur TECHNIQUE: Noncontrast 3 mm axial sections acquired of the left femur, with coronal and sagittal reformats. COMPARISON: None. FINDINGS: Image quality: Excellent. Bones: Postsurgical changes compatible with left knee arthroplasty noted. Comminuted fracture of the left femur is noted. Fracture fragments are displaced medially and proximally. Soft tissues: Mild soft tissue swelling noted adjacent to the distal left femur fracture. Scattered atherosclerotic calcifications noted in the visualized pelvic and left lower extremity musculature. Scattered diverticuli noted in the visualized colon without evidence of diverticulitis. IMPRESSION: Distal left femur comminuted periprosthetic fracture. Dictated by: Stacie Dias MD, PhD on 10/30/2018 at 17:31 Approved by: Stacie Dias MD, PhD on 10/30/2018 at 17:33 hand xray right : Radiologist's impression: [address] [address] XRay Report Signed Patient: Socorro Valenzuela CMR#: [id number] : 8Acct:[id number] Age/Sex: 68 / FDate of Service: 10/30/18 Loc: ED Accession Number: [id number] Procedure: XR hand RT min 3V Ordering Provider: Mikayla Woodard D.O. PROCEDURE: XR HAND RT MIN 3V INDICATIONS: fall / pain TECHNIQUE: 3 views of the hand(s) acquired. COMPARISON: None. FINDINGS: Bones: Comminuted fracture of the distal radius which extends into the radiocarpal and distal radioulnar joints noted. Displaced ulnar styloid process fracture. Soft tissues: No suspicious soft tissue calcifications. IMPRESSION: Distal radius and ulna fractures. Dictated by: Stacie Dias MD, PhD on 10/30/2018 at 17:28 Approved by: Stacie Dias MD, PhD on 10/30/2018 at 17:28 left knee xray : Radiologist's impression: Socorro Valenzuela 68 F [address] [address] XRay Report Signed Patient: Socorro Valenzuela CMR#: [id number] : 1950cct:[id number] Age/Sex: 68 / FDate of Service: 10/30/18 Loc: ED Accession Number: [id number] Procedure: XR knee LT 3V Ordering Provider: Mikayla Woodard D.O. PROCEDURE: XR KNEE LT 3V INDICATIONS: fall / pain TECHNIQUE: 3 views of the knee were acquired. COMPARISON: None. FINDINGS: Bones: Postsurgical changes compatible with prior left knee arthroplasty noted. Hamate fracture of the distal femur fracture. Soft tissues: No joint effusion. No suspicious soft tissue calcifications. IMPRESSION: Distal left femur periprosthetic fracture. Dictated by: Stacie Dias MD, PhD on 10/30/2018 at 17:29 Approved by: Stacie Dias MD, PhD on 10/30/2018 at 17:29 left tib fib : Radiologist's impression: Socorro Valenzuela 68 F [address] [address] XRay Report Signed Patient: Socorro Valenzuela CMR#: [id number] : 8Acct:[id number] Age/Sex: 68 / FDate of Service: 10/30/18 Loc: ED Accession Number: [id number] Procedure: XR tibia fibula LT 2V Ordering Provider: Mikayla Woodard D.O. PROCEDURE: XR TIBIA FIBULA RT 2V INDICATIONS: fall / pain TECHNIQUE: 2 views of the tibia and fibula were acquired. COMPARISON: None. FINDINGS: Bones: No fractures or dislocations. No suspicious bony lesions. Large c alcaneal bone spur is incidentally noted. Soft tissues: No suspicious soft tissue calcifications or masses. IMPRESSION: No fracture. No osseous lesion. If there are persistent symptoms or clinical suspicion for pathology, then repeat radiographs or advanced imaging (CT, MRI or bone scan) should be considered for further evaluation. Dictated by: Stacie Dias MD, PhD on 10/30/2018 at 17:27 Approved by: Stacie Dias MD, PhD on 10/30/2018 at 17:27 [facility] Narrative Medical decision making narrative: The patient is a 68-year-old female who presents after a ground level fall with a complicated femur fracture. I spoke with Dr. Gruber from [facility], who states that the patient's case is too complicated for this facility. Thus the images were pushed down to [facility] and I spoke with Dr. Jacobs at 6:42 p.m who kindly accepted the patient for transfer. The patient was hemodynamically stable throughout her stay in the emergency department. She was treated with morphine for pain. a removable wrist splint was placed for comfort prior to specialist evaluation. She was neurovascularly intact throughout her stay in the emergency department. Patient has no questions or concerns regarding transfer and is okay with transfer. <Prosper Lagunas MD - Last Filed: 10/31/18 02:03> Lab Data Lab Results 10/30/18 10/30/18 10/30/18 Range/Units 18:45 18:45 18:45 WBC 16.5 H (4.5-11.0) X10^3/uL RBC 4.44 (4.0-5.2) X10^6/uL Hgb 13.3 (12.0-16.0) g/dL Hct 40.8 (36-46) % MCV 91.8 (80-100) fL MCH 29.9 (26-34) PG MCHC 32.6 (30-36) % RDW 15.8 H (11.6-14.8) % Plt Count 173 (150-400) X10^3/uL Neut % (Auto) 86.9 H (50-75) % Lymph % (Auto) 5.9 L (25-40) % Ford % (Auto) 6.5 (3-14) % Eos % (Auto) 0.3 L (2-4) % Baso % (Auto) 0.4 (0-2) % Neut # (Auto) 38461 H (3655-7713) /uL Lymph # (Auto) 1000 L (9139-2508) /uL Ford # (Auto) 1100 H (0-900) /uL Eos # (Auto) 0 (0-450) /uL Baso # (Auto) 100 (0-100) /uL PT (10.1-12.7) SECONDS INR (0.9-1.3) APTT (26.4-36.2) SECONDS Sodium 137 (137-145) mmol/L Potassium 4.5 (3.4-5.1) mmol/L Chloride 103 (98-107) mmol/L Carbon Dioxide 26 (22-32) mmol/L BUN 24 H (7-17) mg/dL Creatinine 0.90 (0.52-1.04) mg/dL Estimated GFR > 60.0 (>60) mL/min BUN/Creatinine Ratio 26.7 H (6-22) Glucose 139 H (80-110) mg/dL Calcium 9.1 (8.4-10.2) mg/dL Total Bilirubin 0.6 (0.2-1.3) mg/dL AST 170 H (14-36) IU/L ALT 121 H (9-52) IU/L Alkaline Phosphatase 105 (38-126) U/L Total Protein 7.8 (6.3-8.2) g/dL Albumin 3.6 (3.5-5.0) g/dL Globulin 4.2 H (1.7-4.1) g/dL Albumin/Globulin Ratio 0.9 L (1.0-2.8) Blood Type A Positive Antibody Screen Negative 10/30/18 Range/Units 19:25 WBC (4.5-11.0) X10^3/uL RBC (4.0-5.2) X10^6/uL Hgb (12.0-16.0) g/dL Hct (36-46) % MCV (80-100) fL MCH (26-34) PG MCHC (30-36) % RDW (11.6-14.8) % Plt Count (150-400) X10^3/uL Neut % (Auto) (50-75) % Lymph % (Auto) (25-40) % Ford % (Auto) (3-14) % Eos % (Auto) (2-4) % Baso % (Auto) (0-2) % Neut # (Auto) (9138-1424) /uL Lymph # (Auto) (0078-9360) /uL Ford # (Auto) (0-900) /uL Eos # (Auto) (0-450) /uL Baso # (Auto) (0-100) /uL PT 12.6 (10.1-12.7) SECONDS INR 1.1 (0.9-1.3) APTT 25 L (26.4-36.2) SECONDS Sodium (137-145) mmol/L Potassium (3.4-5.1) mmol/L Chloride (98-107) mmol/L Carbon Dioxide (22-32) mmol/L BUN (7-17) mg/dL Creatinine (0.52-1.04) mg/dL Estimated GFR (>60) mL/min BUN/Creatinine Ratio (6-22) Glucose (80-110) mg/dL Calcium (8.4-10.2) mg/dL Total Bilirubin (0.2-1.3) mg/dL AST (14-36) IU/L ALT (9-52) IU/L Alkaline Phosphatase (38-126) U/L Total Protein (6.3-8.2) g/dL Albumin (3.5-5.0) g/dL Globulin (1.7-4.1) g/dL Albumin/Globulin Ratio (1.0-2.8) Blood Type Antibody Screen Discharge Plan Departure Patient Disposition: [facility] Clinical Impression: Fall from ground level Fracture of wrist Qualifiers: Encounter type: initial encounter Fracture type: closed Laterality: right Qualified Code(s): S62.101A - Fracture of unspecified carpal bone, right wrist, initial encounter for closed fracture Femur fracture, left Qualifiers: Encounter type: initial encounter Femur location: shaft Fracture type: closed Fracture morphology: comminuted Fracture alignment: displaced Qualified Code(s): S72.352A - Displaced comminuted fracture of shaft of left femur, initial encounter for closed fracture Discharge Date/Time: 10/30/18 20:45 Interventions: ED Discharge Assessment Last Done: 10/30/18 20:40 Prescriptions: No Action oxybutynin chloride 15 MG tablet extended release 24hr 15 mg PO BID Qty: 0 RF: 0 albuterol sulfate [Ventolin HFA] 90 MCG/PUFF HFA aerosol inhaler 2 puff INH Q4HP PRN (Reason: Shortness Of Breath) Qty: 0 RF: 0 amlodipine [Norvasc] 5 MG tablet 5 mg PO DAILY Qty: 0 RF: 0 atorvastatin 80 MG tablet 80 mg PO BEDTIME Qty: 0 RF: 0 fluticasone propionate [Flonase Allergy Relief] 9.9 ML spray,suspension 1 spray Intranasal BID Qty: 0 RF: 0 amoxicillin 500 mg Capsule 2,000 mg PO .ONCE RF: 0 clopidogrel 75 mg Tablet 75 mg PO DAILY RF: 0 losartan 100 mg Tablet 100 mg PO DAILY RF: 0 cholecalciferol (vitamin D3) [Vitamin D3] 5,000 unit Tablet 5,000 unit PO DAILY RF: 0 methocarbamol 750 MG tablet 1,500 mg PO Q6HP PRN (Reason: Spasms) RF: 0 Referrals: Duy Howell MD [Primary Care Provider] - <Prosper Lagunas MD - Last Filed: 10/31/18 02:03> Cosign ED Attending Cosignature Attestation: I was present in the ER at the time this patient's care. I was available for consultation or to see the patient directly if required. I agree with the evaluation, assessment and treatment plan.
[2018-10-30] MEDS: SODIUM CHLORIDE 0.9% 1,000 ML 1000 ML IV (18:25)
--- NOTE | 2018-10-30 18:25 | PC.NURSE ---
multiple attempts to get blood, IV did not draw, flushes well. Lab arrived to attempt again.
[2018-10-30 18:30] VITALS: BP 145/88; PULSE 60; RESP 14; O2SAT 98
[2018-10-30 19:00] VITALS: BP 118/88; RESP 20; O2SAT 2
[2018-10-30 19:04] LABS: Add Manual Diff / Slide Review NO; Basophils Absolute Auto 100 /uL (0-100); Basophils Percent Auto 0.4 % (0-2); Eosinophils Absolute Auto 0 /uL (0-450); Eosinophils Percent Auto 0.3 % (2-4); Hematocrit 40.8 % (36-46); Hemoglobin 13.3 g/dL (12.0-16.0); Lymphocytes Absolute Auto 1000 /uL (1100-4500); Lymphocytes Percent Auto 5.9 % (25-40); Mean Corpuscular HGB Conc 32.6 % (30-36); Mean Corpuscular Hemoglobin 29.9 PG (26-34); Mean Corpuscular Volume 91.8 fL (80-100); Monocytes Absolute Auto 1100 /uL (0-900); Monocytes Percent Auto 6.5 % (3-14); Neutrophils Absolute Auto 14400 /uL (1500-7000); Neutrophils Percent Auto 86.9 % (50-75); Platelet Count 173 X10^3/uL (150-400); Red Blood Cell Count 4.44 X10^6/uL (4.0-5.2); Red Cell Distribution Width 15.8 % (11.6-14.8); White Blood Cell Count 16.5 X10^3/uL (4.5-11.0)
[2018-10-30 19:26] LABS: Alanine Aminotransferase 121 IU/L (9-52); Albumin 3.6 g/dL (3.5-5.0); Albumin Globulin Ratio 0.9 (1.0-2.8); Alkaline Phosphatase 105 U/L (38-126); Aspartate Aminotransferase 170 IU/L (14-36); BUN Creatinine Ratio 26.7 (6-22); Bilirubin Total 0.6 mg/dL (0.2-1.3); Blood Urea Nitrogen 24 mg/dL (7-17); Calcium 9.1 mg/dL (8.4-10.2); Carbon Dioxide 26 mmol/L (22-32); Chloride 103 mmol/L (98-107); Estimated Glomerular Filt Rate > 60.0 mL/min (>60); Globulin 4.2 g/dL (1.7-4.1); Glucose 139 mg/dL (80-110); HEMOLYSIS < 15 (0-50); Potassium 4.5 mmol/L (3.4-5.1); Sodium 137 mmol/L (137-145); Total Protein 7.8 g/dL (6.3-8.2)
[2018-10-30 19:42] LABS: INR 1.1 (0.9-1.3); Prothrombin Time 12.6 SECONDS (10.1-12.7)
[2018-10-30 19:45] LABS: PTT Partial Thromboplastin Tim 25 SECONDS (26.4-36.2)
[2018-10-30 19:49] VITALS: BP 133/102; PULSE 78; RESP 18; O2SAT 94
--- NOTE | 2018-10-30 20:10 | PC.NURSE ---
Multiple attempts by lab to get blood. small amount sent to lab.
[2018-10-30 20:40] VITALS: BP 128/81; PULSE 78; RESP 18; TEMP 36.7; O2SAT 94
== END 2018-10-30 20:45 | disposition short-term general hospital (02) ==
PROVIDERS: Emergency Provider Nurse Practitioner Family; PCP Family Medicine
DX: S62.101A Fracture of unspecified carpal bone, right wrist, initial encounter for closed fracture (principal); S72.352A Displaced comminuted fracture of shaft of left femur, initial encounter for closed fracture; W19.XXXA Unspecified fall, initial encounter; Z79.02 Long term (current) use of antithrombotics/antiplatelets
CPT/HCPCS: 36415; 36591; 51701; 70450; 71045; 73130; 73552; 73562; 73590; 73700; 80053; 85025; 85610; 85730; 86850; 86900; 86901; 96361; 96374; 96375; 96376; 99283; 99284; J2270; J2405

== ENCOUNTER 2019-05-19 13:25 | Emergency (ER) | payer MEDICARE, OTHER, SELFPAY ==
--- NOTE | 2019-05-19 13:38 | DI.RAD.S_ITS ---
PROCEDURE: XR WRIST RT MIN 3V INDICATIONS: pain, swlling after plates removed TECHNIQUE: 3 views of the wrist were acquired. COMPARISON: [facility], CR, XR HAND RT MIN 3V, 10/30/2018, 16:53. FINDINGS: Bones: Postoperative changes related to a previous ORIF of the distal radius is evident. Orthopedic tracts are seen within the distal radius and of the 2nd metacarpal. No residual hardware is evident. The fracture of the distal radius appears to have healed. No new or acute fracture is evident. Ulnar styloid process fracture is again evident. No dislocations or suspicious osseous lesions are evident. Soft tissues: No suspicious soft tissue calcifications. IMPRESSION: 1. Healed distal radius fracture, status post ORIF and hardware removal. 2. Unchanged ulnar styloid process fracture. Dictated by: Facundo Sanchez M.D. on 05/19/2019 at 13:01 Approved by: Facundo Sanchez M.D. on 05/19/2019 at 13:03
[2019-05-19 13:40] VITALS: PULSE 68; RESP 20; TEMP 36.8; O2SAT 96; BMI 50.6
--- NOTE | 2019-05-19 13:50 | PC.NURSE ---
Pt had wrist surgery in March. Pt has an area on the lateral right wrist that is raised,red with a few small white spots in the center of it. There is also what appears to be a suture sticking out of the raised area. This has been bothering the pt for approx 10 days. cms intact
--- NOTE | 2019-05-19 14:07 | ED_ITS ---
HPI - Skin/Abscess/Foreign Bdy <Mikayla Faith, [employer]-BC - Last Filed: 05/19/19 19:02> General Chief complaint: Skin/Abscess/Foreign Body Stated complaint: Has a bump on Right wrist, after plates removed Time Seen by Provider: 05/19/19 13:28 Source: patient and family Mode of arrival: Wheelchair Limitations: physical limitation History of Present Illness HPI narrative: The patient is a 69-year-old female former smoker with history of hypertension who presents with a chief complaint of a bump on her right wrist. She states that she had an ORIF done for a distal radial fracture at [facility]. She had her plates removed in March. She states that she notes a bump on her wrist which has been present on the outside for approximately 10 days. She has not followed up with her surgeon about this. She has not taken anything for pain. She denies any fevers nausea vomiting or diarrhea. She presents with her daughter due to increasing pain at the ?bump.She states that she is suppo sed to be see Hand surgery in 2 weeks. She states she is supposed to wear brace her a splint, but is not wearing it at this point. Related Data Home Medications Medication Instructions Recorded Confirmed albuterol sulfate [Ventolin HFA] 2 puff INH Q4HP PRN #0 puff 04/26/13 10/30/18 oxybutynin chloride 15 mg PO BID #0 04/26/13 10/30/18 amlodipine [Norvasc] 5 mg PO DAILY #0 05/02/17 10/30/18 atorvastatin 80 mg PO BEDTIME #0 05/02/17 10/30/18 fluticasone propionate [Flonase 1 spray INTRANASAL BID #0 05/02/17 10/30/18 Allergy Relief] amoxicillin 2,000 mg PO .ONCE 10/30/18 10/30/18 cholecalciferol (vitamin D3) 5,000 unit PO DAILY 10/30/18 10/30/18 [Vitamin D3] clopidogrel 75 mg PO DAILY 10/30/18 10/30/18 losartan 100 mg PO DAILY 10/30/18 10/30/18 methocarbamol 1,500 mg PO Q6HP PRN 10/30/18 10/30/18 Allergies Allergy/AdvReac Type Severity Reaction Status Date / Time adhesive [ADHESIVE] Allergy Severe WATER Verified 10/30/18 16:36 BLISTERS *PAPER/SILK TAPE OK* chicken derived Allergy Severe DIARRHEA, Verified 10/30/18 16:36 [CHICKEN DERIVED] VOMITING, STOMACH CRAMPS Review of Systems <JEANNE Navarro - Last Filed: 05/19/19 19:02> Review of Systems Narrative: GENERAL: Denies chills, fatigue, malaise, fever, sweats. HEENT: Denies sinus pain, ear pain, sore throat, difficulty swallowing, dizzine ss. RESPIRATORY: Denies dyspnea, cough, wheezing, hemoptysis, sputum. CARDIOVASCULAR: Denies chest pain, palpitations, orthopnea, edema, GASTROINTESTINAL: Denies nausea, vomiting, abdominal pain, diarrhea, constipation, melena. : Denies dysuria, frequency, incontinence, hematuria, urinary retention. MUSCULOSKELETAL: See HPI SKIN: See HPI NEUROLOGIC: Denies weakness, headache, numbness, change in speech, confusion, seizures, incoordination. PSYCHIATRIC: No concerning psychosocial issues. 12 point review of systems is negative except for those stated above Patient History <JEANNE Navarro - Last Filed: 05/19/19 19:02> Medical History Morbid obesity (Acute) Social History Smoking Status: Former smoker alcohol intake frequency: 0-2 drinks per day Substance Use Type: does not use Exam <JEANNE Navarro - Last Filed: 05/19/19 19:02> Narrative Exam Narrative: GENERAL: Morbidly obese female sitting on stretcher HEAD: Atraumatic. Normocephalic. No temporal or scalp tenderness. EYES: Pupils equal round and reactive. Extraocular motions intact. No scleral icterus. No injection or drainage. ENT: Nose without bleeding, purulent drainage or septal hematoma. Throat without erythema, tonsillar hypertrophy or exudate. Uvula midline. Airway patent. NECK: Trachea midline. No JVD or lymphadenopathy. Supple, nontender, no meningeal signs. CARDIOVASCULAR: Regular rate and rhythm GASTROINTESTINAL: Abdomen soft, non-tender, nondistended. No hepato- splenomegaly, or palpable masses. No guarding. EXTREMITIES: 1 x 1 cm possible abscess noted lateral aspect of right wrist on ulnar side. No spreading erythema. Suture sticking out. Firm to palpation. Positive radial pulse right hand. Able to flex and extend right wrist. Moving all fingers. BACK: Nontender without deformity or crepitance. No flank tenderness. NEURO: AOx3. SKIN: See extremity exam. Initial Vital Signs Initial Vital Signs: Vital Signs Temperature 98.2 F 05/19/19 13:40 Pulse Rate 68 05/19/19 13:40 Respiratory Rate 20 05/19/19 13:40 Pulse Oximetry 96 05/19/19 13:40 <Mikayla Woodard DO - Last Filed: 05/22/19 07:25> Initial Vital Signs Initial Vital Signs: Vital Signs Temperature 98.2 F 05/19/19 13:40 Pulse Rate 68 05/19/19 13:40 Respiratory Rate 20 05/19/19 13:40 Pulse Oximetry 96 05/19/19 13:40 Procedures <JEANNE Navarro - Last Filed: 05/19/19 19:02> Foreign Body OTHER Time Out Performed: yes Site: left Description of foreign body: other (Suture) Sedation/Analgesia: other (2 ml 1% buffered lidocaine) Technique: manual removal Confirmed by:: direct visualization Complications: none Post-procedure exam: awake, alert Neurovascular: normal distal pulse, normal capillary fill, distal light touch sensation intact, distal motor function normal and no signs of compartment syndrome Course <JEANNE Navarro - Last Filed: 05/19/19 19:02> Orders Ordered: Discontinued Medications Lidocaine/Prilocaine (Lidocaine-Prilocaine Cream) 5 gm TOP NOW ONE Stop: 05/19/19 18:11 Last Admin: 05/19/19 18:14 Dose: 5 gm Documented by: NIMISHA Lidocaine/Sodium Bicarbonate (Buffered Lidocaine 10 Ml Syr) 10 ml INJ NOW ONE Stop: 05/19/19 18:11 Last Admin: 05/19/19 18:14 Dose: 10 ml Documented by: NIMISHA Vital Signs Vital signs: Vital Signs - 8 hr 05/19/19 13:40 Temperature 98.2 F Pulse Rate 68 Respiratory Rate 20 Pulse Oximetry 96 <DO Gasper Jaquez Last Filed: 11/05/19 07:25> Orders Ordered: Discontinued Medications Lidocaine/Prilocaine (Lidocaine-Prilocaine Cream) 5 gm TOP NOW ONE Stop: 05/19/19 18:11 Last Admin: 05/19/19 18:14 Dose: 5 gm Documented by: NIMISHA Lidocaine/Sodium Bicarbonate (Buffered Lidocaine 10 Ml Syr) 10 ml INJ NOW ONE Stop: 05/19/19 18:11 Last Admin: 05/19/19 18:14 Dose: 10 ml Documented by: NIMISHA Vital Signs Vital signs: Vital Signs - 8 hr 05/19/19 13:40 Temperature 98.2 F Pulse Rate 68 Respiratory Rate 20 Pulse Oximetry 96 MDM - Skin/Abscess/Foreign Bdy <ALEXANDR Navarro-BC - Last Filed: 05/19/19 19:02> Lab Data Result diagrams: 05/19/19 14:20 05/19/19 14:20 Labs: Lab Results 05/19/19 05/19/19 Range/Units 14:20 14:20 WBC 8.4 (4.5-11.0) X10^3/uL RBC 4.60 (4.0-5.2) X10^6/uL Hgb 13.2 (12.0-16.0) g/dL Hct 39.7 (36-46) % MCV 86.4 (80-100) fL MCH 28.7 (26-34) PG MCHC 33.2 (30-36) % RDW 16.1 H (11.6-14.8) % Plt Count 220 (150-400) X10^3/uL Neut % (Auto) 64.8 (50-75) % Lymph % (Auto) 18.6 L (25-40) % Borden % (Auto) 12.2 (3-14) % Eos % (Auto) 3.5 (2-4) % Baso % (Auto) 0.9 (0-2) % Neut # (Auto) 5400 (6456-9331) /uL Lymph # (Auto) 1600 (8176-0399) /uL Borden # (Auto) 1000 H (0-900) /uL Eos # (Auto) 300 (0-450) /uL Baso # (Auto) 100 (0-100) /uL ESR 65 H (0-20) MM/HR Sodium 139 (137-145) mmol/L Potassium 3.8 (3.4-5.1) mmol/L Chloride 103 (98-107) mmol/L Carbon Dioxide 27 (22-32) mmol/L BUN 19 H (7-17) mg/dL Creatinine 0.80 (0.52-1.04) mg/dL Estimated GFR > 60.0 (>60) mL/min BUN/Creatinine Ratio 23.8 H (6-22) Glucose 107 (80-110) mg/dL Calcium 9.6 (8.4-10.2) mg/dL Total Bilirubin 0.7 (0.2-1.3) mg/dL AST 65 H (14-36) IU/L ALT 37 H (<35) IU/L Alkaline Phosphatase 130 H (38-126) U/L C-Reactive Protein 1.3 H (<1.0) mg/dL Total Protein 8.3 H (6.3-8.2) g/dL Albumin 4.1 (3.5-5.0) g/dL Globulin 4.2 H (1.7-4.1) g/dL Albumin/Globulin Ratio 1.0 (1.0-2.8) Imaging Data Wrist x-ray: Radiologist's impression: [address] [address] XRay Report Signed Patient: Socorro Valenzuela [facility]#: [id number] : 8Acct:[id number] Age/Sex: 69 / FDate of Service: 05/19/19 Loc: ED Accession Number: [id number] Procedure: XR wrist RT min 3V Ordering Provider: Mikayla Faith- PROCEDURE: XR WRIST RT MIN 3V INDICATIONS: pain, swlling after plates removed TECHNIQUE: 3 views of the wrist were acquired. COMPARISON: [facility], CR, XR HAND RT MIN 3V, 10/30/2018, 16:53. FINDINGS: Bones: Postoperative changes related to a previous ORIF of the distal radius is evident. Orthopedic tracts are seen within the distal radius and of the 2nd metacarpal. No residual hardware is evident. The fracture of the distal radius appears to have healed. No new or acute fracture is evident. Ulnar styloid process fracture is again ev ident. No dislocations or suspicious osseous lesions are evident. Soft tissues: No suspicious soft tissue calcifications. IMPRESSION: 1. Healed distal radius fracture, status post ORIF and hardware removal. 2. Unchanged ulnar styloid process fracture. Dictated by: Facundo Sanchez M.D. on 05/19/2019 at 13:01 Approved by: Facundo Sanchez M.D. on 05/19/2019 at 13:03 [facility] Narrative Medical decision making narrative: The patient is a 69-year-old female who presents for chief complaint of a ?bump on her wrist. She is several months postoperative having plates removed from her wrist down at [facility]. She is afebrile, x-ray shows no acute fracture, labs show no leukocytosis. The patient does have slightly elevated inflammatory markers. Her x-rays were sent to [facility], and pictures of her ?bump were sent to [facility] transfer center secure email. I did discussed her labs with the transfer center as well. I spoke with Dr. Evans, hand surgeon from [facility] who states that they would like the patient to follow up in clinic next week. They state that the suture that is visible can be removed as it is old. This was done in the patient tolerated well. 3 cm of suture was removed. I discussed at length monitoring for signs and symptoms of infection such as redness pus is following. Encourage PCP follow-up as well. I gave the patient contact information for the hand clinic. Patient has no questions or concerns upon discharge and states understanding of return precautions as well as follow-up care. <Mikayla Woodard, - Last Filed: 05/22/19 07:25> Lab Data Labs: Lab Results 05/19/19 05/19/19 Range/Units 14:20 14:20 WBC 8.4 (4.5-11.0) X10^3/uL RBC 4.60 (4.0-5.2) X10^6/uL Hgb 13.2 (12.0-16.0) g/dL Hct 39.7 (36-46) % MCV 86.4 (80-100) fL MCH 28.7 (26-34) PG MCHC 33.2 (30-36) % RDW 16.1 H (11.6-14.8) % Plt Count 220 (150-400) X10^3/uL Neut % (Auto) 64.8 (50-75) % Lymph % (Auto) 18.6 L (25-40) % Borden % (Auto) 12.2 (3-14) % Eos % (Auto) 3.5 (2-4) % Baso % (Auto) 0.9 (0-2) % Neut # (Auto) 5400 (5991-2652) /uL Lymph # (Auto) 1600 (5527-3087) /uL Borden # (Auto) 1000 H (0-900) /uL Eos # (Auto) 300 (0-450) /uL Baso # (Auto) 100 (0-100) /uL ESR 65 H (0-20) MM/HR Sodium 139 (137-145) mmol/L Potassium 3.8 (3.4-5.1) mmol/L Chloride 103 (98-107) mmol/L Carbon Dioxide 27 (22-32) mmol/L BUN 19 H (7-17) mg/dL Creatinine 0.80 (0.52-1.04) mg/dL Estimated GFR > 60.0 (>60) mL/min BUN/Creatinine Ratio 23.8 H (6-22) Glucose 107 (80-110) mg/dL Calcium 9.6 (8.4-10.2) mg/dL Total Bilirubin 0.7 (0.2-1.3) mg/dL AST 65 H (14-36) IU/L ALT 37 H (<35) IU/L Alkaline Phosphatase 130 H (38-126) U/L C-Reactive Protein 1.3 H (<1.0) mg/dL Total Protein 8.3 H (6.3-8.2) g/dL Albumin 4.1 (3.5-5.0) g/dL Globulin 4.2 H (1.7-4.1) g/dL Albumin/Globulin Ratio 1.0 (1.0-2.8) Discharge Plan Departure Patient Disposition: Home Clinical Impression: Encounter for postoperative wound check, Foreign body (FB) in soft tissue Discharge Date/Time: 05/19/19 19:46 Instructions: How to Care for a Surgical Wound, Minor Wounds (Alternative Therapy), DI for Removal of Foreign Body From Skin Activity Restrictions/Additional Instructions: Today we removed suture from your arm. [facility] hand clinic would like to follow up with you next week. They should be calling you late Tuesday. The phone number in case you do not hear from them is [phone] Please monitor for signs of infection such as spreading redness etc. Please follow up if these occur. Prescriptions: No Action oxybutynin chloride 15 MG tablet extended release 24hr 15 mg PO BID Qty: 0 RF: 0 albuterol sulfate [Ventolin HFA] 90 MCG/PUFF HFA aerosol inhaler 2 puff INH Q4HP PRN (Reason: Shortness Of Breath) Qty: 0 RF: 0 amlodipine [Norvasc] 5 MG tablet 5 mg PO DAILY Qty: 0 RF: 0 atorvastatin 80 MG tablet 80 mg PO BEDTIME Qty: 0 RF: 0 fluticasone propionate [Flonase Allergy Relief] 9.9 ML spray,suspension 1 spray Intranasal BID Qty: 0 RF: 0 amoxicillin 500 mg Capsule 2,000 mg PO .ONCE RF: 0 clopidogrel 75 mg Tablet 75 mg PO DAILY RF: 0 losartan 100 mg Tablet 100 mg PO DAILY RF: 0 cholecalciferol (vitamin D3) [Vitamin D3] 5,000 unit Tablet 5,000 unit PO DAILY RF: 0 methocarbamol 750 MG tablet 1,500 mg PO Q6HP PRN (Reason: Spasms) RF: 0 Referrals: Duy Howell MD [Primary Care Provider] -
[2019-05-19 14:39] LABS: Add Manual Diff / Slide Review NO; Basophils Absolute Auto 100 /uL (0-100); Basophils Percent Auto 0.9 % (0-2); Eosinophils Absolute Auto 300 /uL (0-450); Eosinophils Percent Auto 3.5 % (2-4); Hematocrit 39.7 % (36-46); Hemoglobin 13.2 g/dL (12.0-16.0); Lymphocytes Absolute Auto 1600 /uL (1100-4500); Lymphocytes Percent Auto 18.6 % (25-40); Mean Corpuscular HGB Conc 33.2 % (30-36); Mean Corpuscular Hemoglobin 28.7 PG (26-34); Mean Corpuscular Volume 86.4 fL (80-100); Monocytes Absolute Auto 1000 /uL (0-900); Monocytes Percent Auto 12.2 % (3-14); Neutrophils Absolute Auto 5400 /uL (1500-7000); Neutrophils Percent Auto 64.8 % (50-75); Platelet Count 220 X10^3/uL (150-400); Red Cell Distribution Width 16.1 % (11.6-14.8); White Blood Cell Count 8.4 X10^3/uL (4.5-11.0)
[2019-05-19 14:54] LABS: Alanine Aminotransferase 37 IU/L (<35); Albumin 4.1 g/dL (3.5-5.0); Alkaline Phosphatase 130 U/L (38-126); Aspartate Aminotransferase 65 IU/L (14-36); BUN Creatinine Ratio 23.8 (6-22); Bilirubin Total 0.7 mg/dL (0.2-1.3); Blood Urea Nitrogen 19 mg/dL (7-17); C-Reactive Protein Quant 1.3 mg/dL (<1.0); Calcium 9.6 mg/dL (8.4-10.2); Carbon Dioxide 27 mmol/L (22-32); Chloride 103 mmol/L (98-107); Estimated Glomerular Filt Rate > 60.0 mL/min (>60); Globulin 4.2 g/dL (1.7-4.1); Glucose 107 mg/dL (80-110); HEMOLYSIS 18 (0-50); Potassium 3.8 mmol/L (3.4-5.1); Sodium 139 mmol/L (137-145); Total Protein 8.3 g/dL (6.3-8.2)
[2019-05-19 15:01] LABS: Erythrocyte Sedimentation Rate 65 MM/HR (0-20)
--- NOTE | 2019-05-19 16:02 | PC.NURSE ---
Stand by suad Quintanilla to the commode.
[2019-05-19] MEDS: LIDO 1%/SOD BICARB 8.4% (10ML) 10 ML SYRINGE INJ (18:14)
[2019-05-19] MEDS: LIDOCAINE/PRILOCAINE 5 GM TOP (18:14)
[2019-05-19 19:06] VITALS: BP 145/74; PULSE 72
== END 2019-05-19 19:46 | disposition home or self-care (01) ==
PROVIDERS: Emergency Provider Nurse Practitioner Family; PCP Family Medicine
DX: Z48.89 Encounter for other specified surgical aftercare (principal); M79.5 Residual foreign body in soft tissue; R79.89 Other specified abnormal findings of blood chemistry
CPT/HCPCS: 36415; 73110; 80053; 85025; 85651; 86140; 99283; 99284

== ENCOUNTER → 2020-11-05 11:11 | Outpatient (CLI) | payer MEDICARE, OTHER, SELFPAY ==
--- NOTE | 2020-11-05 | DI.US.S_ITS ---
PROCEDURE: US ABDOMEN COMPLETE INDICATIONS: Abnormal results of liver function studies TECHNIQUE: Real-time scanning was performed of the abdominal and retroperitoneal organs, with image documentation. COMPARISON: None. FINDINGS: Liver: Liver is normal in size and homogeneous in echotexture, hyperechoic consistent with fatty infiltration. Gallbladder: The gallbladder appears normal. Biliary ducts: Intrahepatic bile ducts are non-dilated. Extrahepatic bile duct caliber measures 3.0 mm. Normal is 6-7 mm or less in diameter, or 10 mm or less post-cholecystectomy. Pancreas: Visualized portions of the pancreas are sonographically normal. Spleen: Spleen is normal in size and homogeneous in echotexture. Kidneys: Kidneys are normal in size and echotexture. Right kidney measures 11.0 cm long; left kidney measures 9.2 cm long. No hydronephrosis or nephrolithiasis. No solid masses. Aorta: Visualized aorta is normal in caliber at less than 3 cm. Iliacs: The common iliac arteries could not be seen due to bowel gas. IVC: Intrahepatic inferior vena cava is patent. Miscellaneous: No free abdominal fluid. IMPRESSION: Fatty infiltration within the liver. Bowel gas obscures visualization of the iliac arteries. No aneurysm seen. No biliary distension found. No sign of gallstones or acute cholecystitis. Dictated by: Nicolas Whitman M.D. on 11/05/2020 at 15:31 Approved by: Nicolas Whitman M.D. on 11/05/2020 at 15:33
== END ==
PROVIDERS: PCP Family Medicine; Referring Provider Family Medicine; Visit Provider Family Medicine
DX: R94.5 Abnormal results of liver function studies (principal); K76.0 Fatty (change of) liver, not elsewhere classified
CPT/HCPCS: 76700

== ENCOUNTER 2021-03-22 21:07 | Emergency (ER) | payer MEDICARE, OTHER, SELFPAY ==
[2021-03-22 21:17] VITALS: BP 157/89; PULSE 80; RESP 22; TEMP 36.6; O2SAT 98; BMI 53.1
--- NOTE | 2021-03-22 22:46 | ED.SKABFB ---
HPI - Skin/Abscess/Foreign Bdy General Chief complaint: Skin/Abscess/Foreign Body Stated complaint: LEFT LEG INFECTION Time Seen by Provider: 03/22/21 22:46 Source: patient and family Mode of arrival: Wheelchair Limitations: no limitations History of Present Illness HPI narrative: This is a 70-year-old female comes with complaint of an infection on her left lower leg which has been present since December. Patient states she has had a rash in that area that has been intermittent but has worsened recently. She states the ear is painful she denies any active pain. There is crust present which her family states they noticed this evening so he brought her to the department. Patient states that localized to a single area. She has tried 1st aid cream as well as hydrocortisone topically without improvement. She has not been seen in the emergency department or by any other physicians for this. She has not used any topical antibiotics she does have a history of hypertension, prior stroke and is on plavix daily. She denies fevers, no chest pain or shortness of breath, no nausea or vomiting, no other GI or urinary symptoms. She has chronic lower extremity swelling which waxes and wanes in its intensity. She knows this in both legs. She states that she is allergic to adhesives and chicken. Related Data Home Medications Medication Instructions Recorded Confirmed albuterol sulfate 90 mcg/actuation 2 puff INH Q4HP PRN #0 puff 04/26/13 10/30/18 aerosol inhaler (Ventolin HFA) oxybutynin chloride 15 mg 15 mg PO BID #0 04/26/13 10/30/18 tablet,extended release 24 hr amlodipine 5 mg tablet (Norvasc) 5 mg PO DAILY #0 05/02/17 10/30/18 atorvastatin 80 mg tablet 80 mg PO BEDTIME #0 05/02/17 10/30/18 fluticasone propionate 50 1 spray INTRANASAL BID #0 05/02/17 10/30/18 mcg/actuation nasal spray,suspension (Flonase Allergy Relief) amoxicillin 500 mg capsule 2,000 mg PO .ONCE 10/30/18 10/30/18 cholecalciferol (vitamin D3) 125 5,000 unit PO DAILY 10/30/18 10/30/18 mcg (5,000 unit) tablet (Vitamin D3) clopidogrel 75 mg tablet 75 mg PO DAILY 10/30/18 10/30/18 losartan 100 mg tablet 100 mg PO DAILY 10/30/18 10/30/18 methocarbamol 750 mg tablet 1,500 mg PO Q6HP PRN 10/30/18 10/30/18 Previous Rx's Medication Instructions Recorded bacitracin zinc 500 unit/gram 1 applic TOPICAL BID 7 Days #28 g 03/22/21 topical ointment cephalexin 500 mg capsule 500 mg PO Q6H 7 Days #28 cap 03/22/21 Allergies Allergy/AdvReac Type Severity Reaction Status Date / Time adhesive [ADHESIVE] Allergy Severe WATER Verified 10/30/18 16:36 BLISTERS *PAPER/SILK TAPE OK* chicken derived Allergy Severe DIARRHEA, Verified 10/30/18 16:36 [CHICKEN DERIVED] VOMITING, STOMACH CRAMPS Review of Systems Review of Systems ROS Unobtainable: All systems reviewed & are unremarkable except as noted in HPI and below Patient History Medical History (Updated 03/22/21 @ 23:01 by Mikayla Woodard DO) Morbid obesity Social History Smoking Status: Former smoker Smoking Status: Former smoker alcohol intake frequency: holidays/special occasions only Alcohol type: hard liquor Substance Use Type: does not use Exam Narrative Exam Narrative: GENERAL: Alert and oriented x three, obese female in mild distress. HEENT: Head normocephalic, atraumatic, EOMI, pupils reactive, face symmetric, moist mucous membranes NECK: Supple, full range of motion CARDIOVASCULAR: Regular rate and rhythm without murmurs, rubs or gallops. RESPIRATORY: Breath sounds equal bilaterally, no wheezes rales or rhonchi. ABDOMEN: Soft, nontender. Normoactive bowel sounds all 4 quadrants. No guarding or rebound, rigidity, no mass : No CVA tenderness EXTREMITIES: Normal range of motion, no clubbing. Positive for bilateral lower extremity edema which is nonpitting. Patient's left anterior ambriz has not cm area of yellow crusting overlying several open scabbed and draining small superficial wounds. Patient is also noted to have multiple, flesh-colored nodules which are non erythematous, not draining and are nontender. There is intermittent scabbing and crusting in this area as well with minimal patchy erythema. Patient does not have any purulent drainage except for 1 pustule. And the circular areas of wounds are sporadic and not can fluent. Neurovascularly intact. Cap refill less than 2 seconds in all 5 toes. Normal sensation throughout the leg. There is no weeping or drainage actively from the skin otherwise appreciated. NEUROLOGICAL: Cranial nerves II through XII grossly intact. Moving all extremities SKIN: Warm, dry, no petechiae, no rashes or lesions otherwise noted. Initial Vital Signs Initial Vital Signs: Vital Signs Temperature 97.9 F 03/22/21 21:17 Pulse Rate 80 03/22/21 21:17 Respiratory Rate 22 03/22/21 21:17 Blood Pressure 157/89 H 03/22/21 21:17 Pulse Oximetry 98 03/22/21 21:17 Course Orders Ordered: ED Orders 03/22/21 23:13 Wound Culture and Gram Stain Stat Discontinued Medications Bacitracin (Bacitracin Oint 0.9 Gm Pckt) 1 applic TOP NOW ONE Stop: 03/22/21 23:00 Last Admin: 03/22/21 23:09 Dose: 1 applic Documented by: MEET Cefazolin Sodium (Cephalexin 250 Mg Prepack) 1 bottle MISC SEEINSTR ONE Stop: 03/22/21 23:00 Last Admin: 03/22/21 23:09 Dose: 500 mg Documented by: MEET Vital Signs Vital signs: Vital Signs - 8 hr 03/22/21 21:17 03/22/21 23:17 Temperature 97.9 F 96.1 F L Pulse Rate 80 Respiratory Rate 22 Blood Pressure 157/89 H Pulse Oximetry 98 MDM - Skin/Abscess/Foreign Bdy MDM Narrative Medical decision making narrative: Patient has multiple flesh-colored nodules which appear to be chronic and not infected. Overlying there appeared to be several areas of abrasion which may be these nodules being scraped that have developed what I believe is an overlying infection. There is quite a bit of yellow honey-crusted skin changes is reminiscent of impetigo. There is a single pustule that was opened culture was obtained. Patient was started on oral Keflex as well as topical bacitracin. She was asked to follow up with her primary care physician and she may need a dermatology consult if this does not improve he does not appear to be fungal at this time. She does not have appear to have a large lower extremity cellulitis but to be more localized. Return precautions were discussed. All questions answered. Patient feels comfortable with this plan. Discharge Plan Departure Patient Disposition: Home Clinical Impression: Cellulitis of left leg Instructions: DI for Cellulitis -- Adult Activity Restrictions/Additional Instructions: Follow-up with your physician in the next week for recheck. It may be helpful to follow up with Dermatology if you are not having improvement. I suspect you have an infection overlying the area of skin changes that were already present. Keep the area clean, wash once daily. Allow to a dry to air. Take antibiotics until completely gone. Use topical antibiotic twice daily to affected area x7 days. Pres[facility] sent [facility] [place]. Please return for fevers, new redness, warmth or swelling, numbness, tingling, weakness, new chest pain, shortness of breath persistent vomiting or other new or concerning symptoms. Prescriptions: New cephalexin 500 mg capsule 500 mg PO Q6H 7 Days Qty: 28 RF: 0 bacitracin zinc 500 unit/gram ointment 1 applic topical BID 7 Days Qty: 28 RF: 0 No Action oxybutynin chloride 15 MG tablet extended release 24hr 15 mg PO BID Qty: 0 RF: 0 albuterol sulfate [Ventolin HFA] 90 MCG/PUFF HFA aerosol inhaler 2 puff INH Q4HP PRN (Reason: Shortness Of Breath) Qty: 0 RF: 0 amlodipine [Norvasc] 5 MG tablet 5 mg PO DAILY Qty: 0 RF: 0 atorvastatin 80 MG tablet 80 mg PO BEDTIME Qty: 0 RF: 0 fluticasone propionate [Flonase Allergy Relief] 9.9 ML spray,suspension 1 spray Intranasal BID Qty: 0 RF: 0 amoxicillin 500 mg Capsule 2,000 mg PO .ONCE RF: 0 clopidogrel 75 mg Tablet 75 mg PO DAILY RF: 0 losartan 100 mg Tablet 100 mg PO DAILY RF: 0 cholecalciferol (vitamin D3) [Vitamin D3] 5,000 unit Tablet 5,000 unit PO DAILY RF: 0 methocarbamol 750 MG tablet 1,500 mg PO Q6HP PRN (Reason: Spasms) RF: 0 Referrals: Stephanie Christian DO [Primary Care Provider] -
[2021-03-22] MEDS: cephALEXin 250 MG PREPACK 1 BOTTLE MISC (23:09)
[2021-03-22] MEDS: BACITRACIN OINT 0.9 GM PCKT 1 APPLIC TOP (23:09)
[2021-03-22 23:17] VITALS: TEMP 35.6
== END 2021-03-22 23:18 | disposition home or self-care (01) ==
PROVIDERS: Emergency Provider Emergency Medicine; PCP Family Medicine
DX: L03.116 Cellulitis of left lower limb (principal)
CPT/HCPCS: 87070; 87075; 87077; 87147; 87186; 87205; 99282; 99283

== ENCOUNTER 2021-11-30 20:39 | Emergency (ER) | payer MEDICARE, OTHER, SELFPAY ==
[2021-11-30 20:47] VITALS: BP 166/72; PULSE 93; RESP 24; TEMP 36.7; O2SAT 99
--- NOTE | 2021-11-30 20:52 | DI.RAD.S_ITS ---
PROCEDURE: XR RIBS LT MIN 3V W CXR1V INDICATIONS: lt side rib pain/tenderness recent cough TECHNIQUE: Three views of the left ribs were acquired, along with a single view chest. COMPARISON: CR, XR CHEST 1V, 10/30/2018, 16:53. FINDINGS: Surgical changes and devices: None. Bones and chest wall: Evaluation of the ribs is limited due to suboptimal views of the left chest wall due to patient's limited ability to tolerate positioning. Motion artifact is also present limiting evaluation. No definite displaced rib fracture identified. Overlying soft tissues appear unremarkable. Lungs and pleura: No pleural effusions or pneumothorax. There are linear opacities within the left lung base likely representing atelectasis or scarring. Mediastinum: Mediastinal contours appear normal. Heart size is enlarged. IMPRESSION: 1. Limited study demonstrates no definite displaced rib fracture. 2. If clinical concern persists, consider a repeat study or CT. Dictated by: Marquise Be M.D. on 11/30/2021 at 22:13 Approved by: Marquise Be M.D. on 11/30/2021 at 22:17
[2021-11-30 22:21] VITALS: BP 144/65; PULSE 82
[2021-11-30 22:30] VITALS: PULSE 96; O2SAT 93
[2021-11-30] MEDS: LIDOCAINE PATCH 1 EACH ADH..PATCH TOP (22:38)
[2021-11-30] MEDS: TRAMADOL 50 MG PREPACK 1 BOTTLE MISC (22:38)
[2021-11-30 22:45] VITALS: PULSE 93; RESP 24; O2SAT 99
--- NOTE | 2021-11-30 22:57 | ED.CHESTPAIN ---
HPI - Chest Pain General Chief Complaint: Upper Respiratory Symptoms Stated Complaint: COUGH LEFT SIDE RIB PAIN Time Seen by Provider: 11/30/21 22:13 Source: patient Mode of arrival: Wheelchair History of Present Illness HPI narrative: 71F former smoker with history of HTN, hyperlipidemia, and stroke presents with her son and the chief complaint of a mild dry hacking cough for the past few days and left sided rib pain. She denies fever or chills. She has had minimal nasal congestion but denies any sore throat. She states her cough does not bring up any sputum and she does not feel short of breath. She denies dizziness, weakness or lightheadedness. She has had no nausea, vomiting and denies abdominal pain, diarrhea nor dysuria, frequency or urgency. She states the pain in the left side of her chest is pinpoint, sharp and stabbing and worse with deep breath motion or palpation. Related Data Home Medications Medication Instructions Recorded Confirmed albuterol sulfate 90 mcg/actuation 2 puff INH Q4HP PRN #0 puff 04/26/13 11/30/21 aerosol inhaler (Ventolin HFA) oxybutynin chloride 15 mg 15 mg PO BID #0 04/26/13 11/30/21 tablet,extended release 24 hr amlodipine 5 mg tablet (Norvasc) 10 mg PO DAILY #0 05/02/17 11/30/21 atorvastatin 80 mg tablet 80 mg PO BEDTIME #0 05/02/17 11/30/21 clopidogrel 75 mg tablet 75 mg PO DAILY 10/30/18 11/30/21 losartan 100 mg tablet 100 mg PO DAILY 10/30/18 11/30/21 fluticasone 250 mcg-salmeterol 50 1 inh INHALATION BID 11/30/21 11/30/21 mcg/dose blistr powdr for inhalation (Advair Diskus) Previous Rx's Medication Instructions Recorded benzonatate 200 mg capsule 200 mg PO BID PRN #20 cap 11/30/21 lidocaine 5 % topical patch 1 patch TOP DAILY #15 each 11/30/21 (Lidoderm) tramadol 50 mg tablet 50 mg PO TID PRN #20 tab 11/30/21 Allergies Allergy/AdvReac Type Severity Reaction Status Date / Time adhesive [ADHESIVE] Allergy Severe WATER Verified 10/30/18 16:36 BLISTERS *PAPER/SILK TAPE OK* chicken derived Allergy Severe DIARRHEA, Verified 10/30/18 16:36 [CHICKEN DERIVED] VOMITING, STOMACH CRAMPS Review of Systems Review of Systems Narrative: GENERAL: see HPI HEENT: See HPI RESPIRATORY: See HPI CARDIOVASCULAR: See HPI, GASTROINTESTINAL: Denies nausea, vomiting, abdominal pain, diarrhea, constipation, melena. : Denies dysuria, frequency, incontinence, hematuria, urinary retention. MUSCULOSKELETAL: denies weakness, joint pain, or bony pain SKIN: Denies rash, skin lesions, or other NEUROLOGIC: Denies weakness, headache, numbness, change in speech, confusion, seizures, incoordination. PSYCHIATRIC: No concerning psychosocial issues. 12 point review of systems is negative except for those stated above Patient History Medical History Morbid obesity Social History Smoking Status: Former smoker Smoking Status: Former smoker alcohol intake frequency: holidays/special occasions only Alcohol type: hard liquor Substance Use Type: does not use Exam Narrative Exam Narrative: GENERAL: [71] year old patient appears stated age. Well-developed patient, in mild distress. She winces with the occasional cough from pain HEAD: Atraumatic. Normocephalic. EYES: Pupils equal round and reactive. Extraocular motions intact. No scleral icterus. No injection or drainage. ENT: Nose without bleeding, purulent drainage. Throat without erythema, tonsillar hypertrophy or exudate. Airway patent. NECK: Trachea midline. Non tender CARDIOVASCULAR: Regular rate and rhythm without murmurs, gallops, or rubs. RESPIRATORY: Clear to auscultation. Breath sounds equal bilaterally. No wheezes, rales, or rhonchi. Reproducible pain in left lower lateral ribs, no crepitance, edema or erythema. Skin visualized and no rash noted GASTROINTESTINAL: Abdomen soft, non-tender, nondistended. EXTREMITIES: No edema or joint tenderness. BACK: Nontender without deformity or crepitance. No flank tenderness. NEURO: AOx3. SKIN: No rash or erythema of visible areas Initial Vital Signs Initial Vital Signs: Vital Signs Temperature 98.1 F 11/30/21 20:47 Pulse Rate 93 H 11/30/21 20:47 Respiratory Rate 24 11/30/21 20:47 Blood Pressure 166/72 H 11/30/21 20:47 Pulse Oximetry 99 11/30/21 20:47 Course Orders Ordered: ED Orders 11/30/21 20:52 XR ribs LT min 3V w CXR1V Stat 11/30/21 22:40 COVID19 -Nasal RAPID/Pre-Proc Stat 11/30/21 23:09 Creatinine & eGFR Stat Discontinued Medications Lidocaine (Lidocaine Patch 1 Each Adh..Patch) 1 each TOP NOW ONE Stop: 11/30/21 22:32 Last Admin: 11/30/21 22:38 Dose: 1 each Documented by: AMPARO Tramadol HCl (Tramadol 50 Mg Prepack) 1 bottle MISC SEEINSTR ONE Stop: 11/30/21 22:32 Last Admin: 11/30/21 22:38 Dose: 1 bottle Documented by: AMPARO Vital Signs Vital signs: Vital Signs - 8 hr 11/30/21 20:47 11/30/21 22:21 11/30/21 22:30 Temperature 98.1 F Pulse Rate 93 H 82 96 H Respiratory Rate 24 Blood Pressure 166/72 H 144/65 H Pulse Oximetry 99 93 11/30/21 22:45 11/30/21 23:00 11/30/21 23:01 Temperature Pulse Rate 93 H 101 H 91 H Respiratory Rate 24 Blood Pressure 147/69 H Pulse Oximetry 99 94 93 MDM - Chest Pain Lab Data Labs: Lab Results 11/30/21 Range/Units 22:40 SARS-CoV-2 (PCR) Positive H (Negative) Imaging Data Chest x-ray: Radiologist's Impression: [address] [address] XRay Report Signed Patient: Socorro Valenzuela MR#: [id number] : 1950 Acct:[id number] Age/Sex: 71 / F Date of Service: 11/30/21 Loc: ED Accession Number: [id number] ?? Procedure: XR ribs LT min 3V w CXR1V Ordering Provider: Rajat Baltazar D.O. PROCEDURE:? XR RIBS LT MIN 3V W CXR1V ? INDICATIONS:? lt side rib pain/tenderness recent cough ? TECHNIQUE:? Three views of the left ribs were acquired, along with a single view chest.? ? COMPARISON:? CR, XR CHEST 1V, 10/30/2018, 16:53. ? FINDINGS:? ? Surgical changes and devices:? None.? ? Bones and chest wall:? Evaluation of the ribs is limited due to suboptimal views of the left chest wall due to patient's limited ability to tolerate positioning.? Motion artifact is also present limiting evaluation.? No definite displaced rib fracture identified.? Overlying soft tissues appear unremarkable.? ? Lungs and pleura:? No pleural effusions or pneumothorax.? There are linear opacities within the left lung base likely representing atelectasis or scarring. ? Mediastinum:? Mediastinal contours appear normal.? Heart size is enlarged.? ? IMPRESSION:? ? 1. Limited study demonstrates no definite displaced rib fracture. ? 2. If clinical concern persists, consider a repeat study or CT. ? ? Dictated by: Marquise Be M.D. on 11/30/2021 at 22:13 ? ? Approved by: Marquise Be M.D. on 11/30/2021 at 22:17 ? MDM Narrative Medical decision making narrative: Patient with reassuring history and physical exam. She has had a dry and hacking cough the past few days in sharp reproducible left-sided chest pain. She denies any trauma. She has no shortness of breath and demonstrates no signs of respiratory distress. Imaging is reassuring and there is no focal consolidation, rib fracture or pneumothorax. Her COVID test is positive and she would be a candidate for Paxlovid however after reviewing medication interactions she has numerous medications that have known interactions with this medication and we sure the opinion that it is not worth the risk. She is given extensive return precautions and questions have been answered to her apparent satisfaction Discharge Plan Departure Patient Disposition: Home Clinical Impression: Rib pain on left side, COVID-19 Instructions: DI for Atypical Chest Pain, DI for COVID-19 (Suspected or Confirmed ) Activity Restrictions/Additional Instructions: *You have been diagnosed with [ COVID-19 and rib pain from the coughing *What to do: *Prescriptions sent to the [facility] * per recommendations from the CDC and the [facility] Department of Health * stay home except to get medical care. Restrict activities outside your home, except for getting medical care. Do not go to work, school, or public areas. Avoid using public transportation, ride sharing, or taxis. * separate yourself from other people in your home. * call ahead before visiting your doctor * Wear a facemask * Cover your coughs and sneezes * Clean your hands often * Avoid sharing household items * Clean all high-touch services every day * Monitor your symptoms and seek prompt medical attention if your illness is worsening, particularly with difficulty in breathing. You may discontinue your isolation when: 1. You have been fever-free for at least 24 hours without the use of fever reducing medication, AND 2. Your symptoms are getting better, AND 3. At least 5 days have passed since symptoms first appeared 4. If you have fever, continue to stay home until fever resolves Individuals with laboratory confirmed COVID-19 who have not had any symptoms may discontinue home isolation when at least 5 days have passed since the date of their first COVID-19 diagnostic test and have had no subsequent illness You should notifiy any friends and family that have been in close contact *If up to date on COVID Vaccines, then they do not need to quarantine unless symptoms develop. Get tested on day 5 (or sooner if symptoms develop). Take precautions and watch for symptoms until day 10 *If NOT up to date on COVID Vaccines, then CDC recommends quarantine for at least 5 full days. Wear a well fitted mask at home if you must be around others. If they develop symptoms they should get tested. If they remain asymptomatic they should get tested on day 5. They should take precautions and monitor for symptoms until day 10. Prescriptions: New benzonatate 200 mg capsule 200 mg PO BID PRN (Reason: cough) Qty: 20 0RF lidocaine [Lidoderm] 5 % adhesive patch,medicated 1 patch TOP DAILY Qty: 15 0RF Rx Instructions: leave on most painful area for 12 hrs tramadol 50 mg tablet 50 mg PO TID PRN (Reason: pain) Qty: 20 0RF No Action oxybutynin chloride 15 MG tablet extended release 24hr 15 mg PO BID Qty: 0 0RF albuterol sulfate [Ventolin HFA] 90 MCG/PUFF HFA aerosol inhaler 2 puff INH Q4HP PRN (Reason: Shortness Of Breath) Qty: 0 0RF amlodipine [Norvasc] 5 MG tablet 10 mg PO DAILY Qty: 0 0RF atorvastatin 80 MG tablet 80 mg PO BEDTIME Qty: 0 0RF fluticasone propion-salmeterol [Advair Diskus] 250-50 mcg/dose blister with device 1 inh INHALATION BID 0RF Label Comments: INHALE 1 PUFF BY MOUTH TWICE DAILY clopidogrel 75 mg Tablet 75 mg PO DAILY 0RF losartan 100 mg Tablet 100 mg PO DAILY 0RF Referrals: Stephanie Christian DO [Primary Care Provider] -
[2021-11-30 23:00] VITALS: PULSE 101; O2SAT 94
[2021-11-30 23:01] VITALS: BP 147/69; PULSE 91; O2SAT 93
[2021-11-30 23:06] LABS: COVID19 -Nasal RAPID POSITIVE (Negative)
== END 2021-11-30 23:35 | disposition home or self-care (01) ==
PROVIDERS: Emergency Provider Emergency Medicine; PCP Family Medicine
DX: U07.1 COVID-19 (principal); R07.81 Pleurodynia
CPT/HCPCS: 71101; 87635; 99282; 99283; C9803

== ENCOUNTER → 2022-07-23 11:35 | Outpatient (CLI) | payer MEDICARE, OTHER, SELFPAY ==
[2022-07-23 13:19] LABS: COVID19 -Nasal RAPID Negative (Negative)
== END ==
PROVIDERS: PCP Family Medicine; Visit Provider Surgery
DX: Z20.822 Contact with and (suspected) exposure to COVID-19 (principal); Z01.812 Encounter for preprocedural laboratory examination
CPT/HCPCS: 87635; C9803

== ENCOUNTER 2022-07-26 07:58 | Day surgery (SDC) | payer MEDICARE, OTHER, SELFPAY ==
[2022-07-26 08:25] VITALS: BP 141/71; PULSE 94; RESP 18; TEMP 36.3; O2SAT 97; BMI 50.6
--- NOTE | 2022-07-26 08:32 | PM.HP.1 ---
History of Present Illness History of Present Illness Date Patient Seen: 07/26/22 Time Patient Seen: 08:33 Chief complaint: SDC Narrative: Family history of colon cancer Patient History Medical History Morbid obesity Family & Social History Tobacco & Substance use: Smoking Status Former smoker alcohol intake frequency holiday/special occasion Substance Use Type does not use Meds Home Medications and Allergies Home Medications Medication Instructions Recorded Confirmed Type albuterol sulfate 90 mcg/actuation 2 puff INH Q4HP PRN Shortness Of 04/26/13 11/30/21 History aerosol inhaler (Ventolin HFA) Breath #0 puffs oxybutynin chloride 15 mg 15 mg PO BID ##0 04/26/13 11/30/21 History tablet,extended release 24 hr amlodipine 5 mg tablet (Norvasc) 10 mg PO DAILY ##0 05/02/17 11/30/21 History atorvastatin 80 mg tablet 80 mg PO BEDTIME ##0 05/02/17 11/30/21 History clopidogrel 75 mg tablet 75 mg PO DAILY 10/30/18 11/30/21 History losartan 100 mg tablet 100 mg PO DAILY 10/30/18 11/30/21 History benzonatate 200 mg capsule 200 mg PO BID PRN cough #20 caps 11/30/21 Rx fluticasone 250 mcg-salmeterol 50 1 inh inhalation BID 11/30/21 11/30/21 History mcg/dose blistr powdr for inhalation (Advair Diskus) lidocaine 5 % topical patch 1 patch topical DAILY #15 ea 11/30/21 Rx (Lidoderm) tramadol 50 mg tablet 50 mg PO TID PRN pain #20 tabs 11/30/21 Rx Allergies Allergy/AdvReac Type Severity Reaction Status Date / Time adhesive [ADHESIVE] Allergy Severe WATER Verified 07/26/22 08:24 BLISTERS *PAPER/SILK TAPE OK* chicken derived Allergy Severe DIARRHEA, Verified 07/26/22 08:24 [CHICKEN DERIVED] VOMITING, STOMACH CRAMPS Review of Systems Review of Systems ROS: Yes All systems reviewed with the patient and are negative except as otherwise documented Exam Const General: cooperative Nutritional Appearance: obese HENMT Head: normal to inspection Eyes General: appearance normal, both eyes and all related structures Neck Neck: normal visual inspection Chest Chest: normal inspection of the chest Resp Effort & Inspection: normal respiratory effort Cardio Rate: regular rate GI Inspection: normal to inspection Skin General: no rashes or lesions noted Neuro General: patient alert and patient awake Extrem General: normal to inspection and edema Psych Appearance: grossly normal Assessment & Plan Assessment & Plan narrative: 72-year-old female with a family history of colon cancer. Colonoscopy is pursued today. Time Spent With Patient Critical Care time: I spent a total of [] minutes of critical care time on this patient's care today; this time is exclusive of procedural time.
--- NOTE | 2022-07-26 08:37 | PM.PREOP ---
Pre-operative Note COVID-19 COVID-19 status: Negative Result date/Date tested (Pos, Neg/Pending): 07/23/22 Criteria for continued procedure: Possibility delay results in more complex future surgery or treatment Interval Note History & Physical reviewed/Exam performed by Physician: Yes Changes to H&P: No ASA Class (for procedural sedation): III
[2022-07-26] MEDS: LACTATED RINGERS 1,000 ML 84 ML IV (08:38)
--- NOTE | 2022-07-26 09:25 | PM.OP.COLON ---
Operative Date/Time/Diagnoses Date of procedure: 07/26/22 Time of procedure: 09:25 Pre-op diagnosis: Family history of colon cancer Post-op diagnosis: same Procedure & Clinicians Study performed: Incomplete colonoscopy Same procedure as scheduled: No Indications: Family history of colon cancer Surgeon: Grayson Krishna Procedure Notes SCOAP/Timeout: Done Procedure in detail: After the risks and benefits were explained, written and verbal informed consent was obtained. The patient was brought into the procedure room and placed into the left lateral decubitus position. Please see anesthesia notes for sedation details. Digital rectal examination was accomplished. The scope was introduced into the patient and advanced under direct visualization to approximately hepatic flexure. The prep was inadequate. This precluded acceptable mucosal examination and rendered attempt at further navigation towards cecum extremely difficult. The scope was therefore brought back without achieving cecal intubation. Comprehensive imaging was accomplished throughout the rectum including the dentate line. The colon was decompressed, the scope was then removed from the patient who tolerated the procedure well. Adult colonoscope Bowel prep inadequate Scope withdrawal time: Not applicable Sedation minutes: 13 Specimen(s): none sent Complications: none Impression: There was some diverticulosis in the left colon. There was copious amounts of solid and liquid stool in many areas throughout the examined colon up to hepatic flexure. This precluded acceptable mucosal examination and rendered navigation to cecum extremely difficult. Procedure was therefore abbreviated. Endoscopic diagnosis 1. Poor bowel prep 2. Incomplete colonoscopy 3. Diverticulosis Post-procedure Plan for aftercare: 1. Within the next 6 months, consider repeat colonoscopy with a double bowel prep. 2. Plavix can be restarted today. Disposition: PACU
[2022-07-26 09:26] VITALS: BP 112/74; PULSE 82; RESP 15; TEMP 36.3; O2SAT 91
[2022-07-26 09:35] VITALS: BP 125/72; PULSE 82; RESP 14; O2SAT 92
[2022-07-26 09:39] VITALS: BP 135/85; PULSE 69; RESP 14; O2SAT 92
[2022-07-26 09:44] VITALS: BP 122/56; PULSE 72; RESP 13; TEMP 36.3; O2SAT 92
== END 2022-07-26 10:05 | disposition home or self-care (01) ==
PROVIDERS: PCP Physician Assistant; Referring Provider Internal Medicine Gastroenterology; Visit Provider Internal Medicine Gastroenterology
PROC: 0DJD8ZZ Inspection of Lower Intestinal Tract, Via Natural or Artificial Opening Endoscopic (ICD-10-PCS; CPT 45378; principal; 2022-07-26 09:00)
DX: Z12.11 Encounter for screening for malignant neoplasm of colon (principal); Z80.0 Family history of malignant neoplasm of digestive organs; Z53.09 Procedure and treatment not carried out because of other contraindication; E66.01 Morbid (severe) obesity due to excess calories; Z68.43 Body mass index [BMI] 50.0-59.9, adult; K57.30 Diverticulosis of large intestine without perforation or abscess without bleeding
CPT/HCPCS: G0105; J2250; J3010

== ENCOUNTER 2023-04-23 13:47 | Emergency (ER) | payer MEDICARE, OTHER, SELFPAY ==
[2023-04-23] VITALS (8 sets, daily range): BP systolic 128–144; BP diastolic 60–91; PULSE 70–88; RESP 6–25; TEMP 36.8; O2SAT 86–98; BMI 52.3
--- NOTE | 2023-04-23 14:31 | DI.RAD.S_ITS ---
PROCEDURE: XR CHEST 1V INDICATIONS: chest pain TECHNIQUE: One view of the chest was acquired. COMPARISON: [facility], CR, XR RIBS LT MIN 3V W CXR1V, 11/30/2021, 20:44. [facility], CR, XR CHEST 1V, 10/30/2018, 16:53. FINDINGS: Surgical changes and devices: None. Lungs and pleura: On this semiupright portable chest examination, no large pneumothorax or large pleural effusions are seen. No focal infiltrates are seen. Low lung volumes are noted. This causes a crowded appearance to the lung markings and limits evaluation. Mediastinum: Mediastinal contours appear normal. Heart size is normal. Bones and chest wall: No suspicious bony lesions. Age-appropriate bony degenerative changes are seen. Overlying soft tissues appear unremarkable. IMPRESSION: Limited portable chest examination, with low lung volumes. No kimberley acute portable chest abnormality is seen. Dictated by: Prabhu Chan M.D. on 04/23/2023 at 14:17 Approved by: Prabhu Chan M.D. on 04/23/2023 at 14:20
--- NOTE | 2023-04-23 14:31 | DI.US.S_ITS ---
PROCEDURE: US PERIPH VENOUS LOW EXTREM BI INDICATIONS: bilat lower extremity edema L>R TECHNIQUE: Real-time imaging, as well as color and pulse Doppler interrogation, were performed of the deep veins of both legs from the inguinal ligament to the popliteal fossa, with documentation of the visualized calf veins. COMPARISON: None. FINDINGS: Right: The common femoral, femoral, popliteal, and the visualized calf veins are normally compressible, and free of intraluminal thrombus. Color and pulse Doppler demonstrate normal phasic intravascular flow. There is normal augmentation response to distal compression maneuver. Left: The common femoral, femoral, popliteal, and the visualized calf veins are normally compressible, and free of intraluminal thrombus. Color and pulse Doppler demonstrate normal phasic intravascular flow. There is normal augmentation response to distal compression maneuver. This study is limited by body habitus. The distal femoral veins are not seen on either side. Furthermore, the calf veins are not seen. IMPRESSION: Limited study, without findings deep venous thrombosis. Dictated by: Prabhu Chan M.D. on 04/23/2023 at 15:13 Approved by: Prabhu Chan M.D. on 04/23/2023 at 15:14
[2023-04-23 15:01] LABS: Add Manual Diff / Slide Review NO; Basophils Absolute Auto 100 /uL (0-100); Basophils Percent Auto 1.2 % (0-2); Eosinophils Absolute Auto 100 /uL (0-450); Eosinophils Percent Auto 1.6 % (2-4); Hematocrit 40.2 % (36-46); Hemoglobin 13.3 g/dL (12.0-16.0); Lymphocytes Absolute Auto 1000 /uL (1100-4500); Lymphocytes Percent Auto 13.9 % (25-40); Mean Corpuscular HGB Conc 33.1 % (30-36); Mean Corpuscular Volume 87.8 fL (80-100); Monocytes Absolute Auto 700 /uL (0-900); Monocytes Percent Auto 9.3 % (3-14); Neutrophils Absolute Auto 5300 /uL (1500-7000); Platelet Count 228 X10^3/uL (150-400); Red Blood Cell Count 4.58 X10^6/uL (4.0-5.2); Red Cell Distribution Width 16.1 % (11.6-14.8); White Blood Cell Count 7.2 X10^3/uL (4.5-11.0)
[2023-04-23 15:08] LABS: INR 1.2 (0.9-1.3); Prothrombin Time 13.3 SECONDS (10.1-12.7)
[2023-04-23 15:10] LABS: Alanine Aminotransferase 63 IU/L (<35); Albumin 4.1 g/dL (3.5-5.0); Albumin Globulin Ratio 0.8 (1.0-2.8); Alkaline Phosphatase 111 U/L (38-126); Aspartate Aminotransferase 92 IU/L (14-36); Bilirubin Total 0.7 mg/dL (0.2-1.3); Blood Urea Nitrogen 23 mg/dL (7-17); Carbon Dioxide 28 mmol/L (22-32); Chloride 101 mmol/L (98-107); Creatine Kinase 31 U/L (30-135); Estimated Glomerular Filt Rate > 60 mL/min (>60); Globulin 5.1 g/dL (1.7-4.1); Glucose 125 mg/dL (80-110); HEMOLYSIS < 15 (0-50); Lipase 84 U/L (23-300); Magnesium 1.4 mg/dL (1.6-2.3); PTT Partial Thromboplastin Tim 29 SECONDS (26-36); Potassium 4.2 mmol/L (3.4-5.1); Sodium 137 mmol/L (137-145); Total Protein 9.2 g/dL (6.3-8.2)
[2023-04-23 15:21] LABS: NT-proBNP (BNP-Adult 18+) 373 pg/mL (<125); Troponin I < 0.012 ng/mL (0.01-0.034)
--- NOTE | 2023-04-23 18:13 | ED.EXTPRO ---
HPI - Extremity Problem General Chief complaint: Extremity Problem,Nontraumatic Stated complaint: swelling/pain on both legs Time Seen by Provider: 04/23/23 18:13 Source: patient Mode of arrival: Wheelchair History of Present Illness HPI Narrative: Patient new 2-year-old female history of morbid obesity 2 strokes, hypertension presenting today with increasing lower extremity swelling left greater than right but both bilaterally. She reports she is had a lot of swelling last weeks last 1 week she feels like a left leg is more swollen. She does get up and walk around the house but sounds like limited mobility. He denies any chest pain shortness of fever or chills. No history of congestive heart failure. She reports she had a wear velcro she was because it they were the only she is that she could put on her feet Related Data Home Medications Medication Instructions Recorded Confirmed albuterol sulfate 90 mcg/actuation 2 puff INH Q4HP PRN Shortness Of 04/26/13 07/26/22 aerosol inhaler (Ventolin HFA) Breath #0 puffs oxybutynin chloride 15 mg 15 mg PO BID ##0 04/26/13 11/30/21 tablet,extended release 24 hr amlodipine 5 mg tablet (Norvasc) 10 mg PO DAILY ##0 05/02/17 07/26/22 atorvastatin 80 mg tablet 80 mg PO BEDTIME ##0 05/02/17 07/26/22 clopidogrel 75 mg tablet 75 mg PO DAILY 10/30/18 07/26/22 losartan 100 mg tablet 100 mg PO DAILY 10/30/18 11/30/21 fluticasone 250 mcg-salmeterol 50 1 inh inhalation BID 11/30/21 11/30/21 mcg/dose blistr powdr for inhalation (Advair Diskus) Previous Rx's Medication Instructions Recorded benzonatate 200 mg capsule 200 mg PO BID PRN cough #20 caps 11/30/21 lidocaine 5 % topical patch 1 patch topical DAILY #15 ea 11/30/21 (Lidoderm) tramadol 50 mg tablet 50 mg PO TID PRN pain #20 tabs 11/30/21 furosemide 20 mg tablet (Lasix) 20 mg PO DAILY #7 tabs 04/23/23 Allergies Allergy/AdvReac Type Severity Reaction Status Date / Time adhesive [ADHESIVE] Allergy Severe WATER Verified 04/23/23 14:19 BLISTERS *PAPER/SILK TAPE OK* chicken derived Allergy Severe DIARRHEA, Verified 04/23/23 14:19 [CHICKEN DERIVED] VOMITING, STOMACH CRAMPS Review of Systems Review of Systems ROS Unobtainable: All systems reviewed & are unremarkable except as noted in HPI and below Patient History Medical History (Updated 04/23/23 @ 18:50 by Saige Bar DO) Morbid obesity Social History household members: spouse Smoking Status: Former smoker alcohol intake: current Smoking Status: Former smoker alcohol intake frequency: holidays/special occasions only Alcohol type: hard liquor Substance Use Type: does not use Exam Initial Vital Signs Initial Vital Signs: Vital Signs Temperature 98.3 F 04/23/23 14:19 Pulse Rate 70 04/23/23 14:19 Respiratory Rate 22 04/23/23 14:19 Blood Pressure 141/71 H 04/23/23 14:19 Pulse Oximetry 97 04/23/23 14:19 Oxygen Delivery Method Room Air 04/23/23 14:19 GENERAL: Alert morbidly obese 72-year-old female HEENT: Head atraumatic,EOMI, pupils reactive, face symmetric, [moist] mucous membranes CARDIOVASCULAR: Regular rate and rhythm without murmurs, rubs or gallops. RESPIRATORY: Breath sounds equal bilaterally, no wheezes rales or rhonchi. ABDOMEN: Soft, nontender. Normoactive bowel sounds all 4 quadrants. No guarding or rebound. EXTREMITIES: Normal range of motion, no clubbing. +2 pitting edema bilaterally. Good distal pedal pulses bilaterally. Neurovascularly intact NEUROLOGICAL: Alert and oriented x4. No gross deficits SKIN: No significant erythema bilateral edema Course Orders Ordered: Discontinued Medications Furosemide (Furosemide 40 Mg/4 Ml Vial) 20 mg IV NOW ONE Stop: 04/23/23 18:43 Last Admin: 04/23/23 19:05 Dose: 20 mg Documented By: WEI Vital Signs Vital signs: Vital Signs - 8 hr 04/23/23 18:30 04/23/23 19:00 04/23/23 19:01 Pulse Rate 86 88 81 Respiratory Rate 25 H 15 6 L Blood Pressure Pulse Oximetry 94 91 96 04/23/23 19:01 Pulse Rate Respiratory Rate Blood Pressure 128/68 Pulse Oximetry MDM - Extremity (Nontraumatic) Lab Data 04/23/23 14:45 04/23/23 14:45 Labs: Lab Results 04/23/23 Range/Units 14:45 WBC 7.2 (4.5-11.0) X10^3/uL RBC 4.58 (4.0-5.2) X10^6/uL Hgb 13.3 (12.0-16.0) g/dL Hct 40.2 (36-46) % MCV 87.8 (80-100) fL MCH 29.0 (26-34) PG MCHC 33.1 (30-36) % RDW 16.1 H (11.6-14.8) % Plt Count 228 (150-400) X10^3/uL Neut % (Auto) 74.0 (50-75) % Lymph % (Auto) 13.9 L (25-40) % [place] % (Auto) 9.3 (3-14) % Eos % (Auto) 1.6 L (2-4) % Baso % (Auto) 1.2 (0-2) % Neut # (Auto) 5300 (3081-5322) /uL Lymph # (Auto) 1000 L (3534-0861) /uL [place] # (Auto) 700 (0-900) /uL Eos # (Auto) 100 (0-450) /uL Baso # (Auto) 100 (0-100) /uL PT 13.3 H (10.1-12.7) SECONDS INR 1.2 (0.9-1.3) APTT 29 (26-36) SECONDS Sodium 137 (137-145) mmol/L Potassium 4.2 (3.4-5.1) mmol/L Chloride 101 (98-107) mmol/L Carbon Dioxide 28 (22-32) mmol/L BUN 23 H (7-17) mg/dL Creatinine 0.82 (0.52-1.04) mg/dL Estimated GFR > 60 (>60) mL/min BUN/Creatinine Ratio 28.0 H (6-22) Glucose 125 H (80-110) mg/dL Calcium 10.0 (8.4-10.2) mg/dL Magnesium 1.4 L (1.6-2.3) mg/dL Total Bilirubin 0.7 (0.2-1.3) mg/dL AST 92 H (14-36) IU/L ALT 63 H (<35) IU/L Alkaline Phosphatase 111 (38-126) U/L Total Creatine Kinase 31 (30-135) U/L Troponin I < 0.012 (0.01-0.034) ng/mL NT-Pro-B Natriuret Pep 373 H (<125) pg/mL Total Protein 9.2 H (6.3-8.2) g/dL Albumin 4.1 (3.5-5.0) g/dL Globulin 5.1 H (1.7-4.1) g/dL Albumin/Globulin Ratio 0.8 L (1.0-2.8) Lipase 84 (23-300) U/L Imaging Data Chest x-ray: Radiologist's Impression: PROCEDURE: XR CHEST 1V INDICATIONS: chest pain TECHNIQUE: One view of the chest was acquired. COMPARISON: [facility], CR, XR RIBS LT MIN 3V W CXR1V, 11/30/2021, 20:44. [facility], CR, XR CHEST 1V, 10/30/2018, 16:53. FINDINGS: Surgical changes and devices: None. Lungs and pleura: On this semiupright portable chest examination, no large pneumothorax or large pleural effusions are seen. No focal infiltrates are seen. Low lung volumes are noted. This causes a crowded appearance to the lung markings and limits evaluation. Mediastinum: Mediastinal contours appear normal. Heart size is normal. Bones and chest wall: No suspicious bony lesions. Age-appropriate bony degenerative changes are seen. Overlying soft tissues appear unremarkable. IMPRESSION: Limited portable chest examination, with low lung volumes. No kimberley acute portable chest abnormality is seen. Dictated by: Prabhu Chan M.D. on 04/23/2023 at 14:17 US - DVT: Radiologist's Impression: PROCEDURE: US PERIPH VENOUS LOW EXTREM BI INDICATIONS: bilat lower extremity edema L>R TECHNIQUE: Real-time imaging, as well as color and pulse Doppler interrogation, were performed of the deep veins of both legs from the inguinal ligament to the popliteal fossa, with documentation of the visualized calf veins. COMPARISON: None. FINDINGS: Right: The common femoral, femoral, popliteal, and the visualized calf veins are normally compressible, and free of intraluminal thrombus. Color and pulse Doppler demonstrate normal phasic intravascular flow. There is normal augmentation response to distal compression maneuver. Left: The common femoral, femoral, popliteal, and the visualized calf veins are normally compressible, and free of intraluminal thrombus. Color and pulse Doppler demonstrate normal phasic intravascular flow. There is normal augmentation response to distal compression maneuver. This study is limited by body habitus. The distal femoral veins are not seen on either side. Furthermore, the calf veins are not seen. IMPRESSION: Limited study, without findings deep venous thrombosis. Dictated by: Prabhu Chan M.D. on 04/23/2023 at 15:13 MDM Narrative Medical decision making narrative: Patient is 72-year-old female history real obesity 2 strokes hypertension presenting today with bilateral lower extremity edema. Without any chest pain shortness of breath or orthopnea. Ultrasound is negative for DVT, BNP minimally elevated at 343 electrolytes another blood work have been reviewed and stable. No evidence of infection at this time reasonable to start diuretic for a few days to see if she has improvement. She is not hypoxic there is no indication patient discuss with her family at bedside you would like tonight Discharge Plan Departure Patient Disposition: Home Clinical Impression: Bilateral edema of lower extremity Instructions: DI for Dependent Edema Activity Restrictions/Additional Instructions: *You have been diagnosed with bilateral lower extremity edema *What to do: At this time let us give you a water pill to see if it helps with your swelling *Continue to take medications as directed Furosemide 20 mg once a day 3 days *Follow up with your primary care provider in 2-3 days or call [phone] *Return to ER if you should have increasing swelling redness chest pain shortness of breath fever or any new, worsening or concerning symptoms Prescriptions: New furosemide [Lasix] 20 mg tablet 20 mg PO DAILY Qty: 7 0RF No Action oxybutynin chloride 15 MG tablet extended release 24hr 15 mg PO BID Qty: 0 albuterol sulfate [Ventolin HFA] 90 MCG/PUFF HFA aerosol inhaler 2 puff INH Q4HP PRN (Reason: Shortness Of Breath) Qty: 0 amlodipine [Norvasc] 5 MG tablet 10 mg PO DAILY Qty: 0 atorvastatin 80 MG tablet 80 mg PO BEDTIME Qty: 0 fluticasone propion-salmeterol [Advair Diskus] 250-50 mcg/dose blister with device 1 inh INHALATION BID Patient Comments: INHALE 1 PUFF BY MOUTH TWICE DAILY benzonatate 200 mg capsule 200 mg PO BID PRN (Reason: cough) Qty: 20 0RF lidocaine [Lidoderm] 5 % adhesive patch,medicated 1 patch TOP DAILY Qty: 15 0RF Rx Instructions: leave on most painful area for 12 hrs tramadol 50 mg tablet 50 mg PO TID PRN (Reason: pain) Qty: 20 0RF clopidogrel 75 mg Tablet 75 mg PO DAILY losartan 100 mg Tablet 100 mg PO DAILY Referrals: Dulce Wellington PA-C [Primary Care Provider] - Stand Alone Forms: Patient Portal/API
[2023-04-23] MEDS: FUROSEMIDE 40 MG/4 ML VIAL 20 MG IV (19:05)
== END 2023-04-23 19:12 | disposition home or self-care (01) ==
PROVIDERS: Emergency Medicine; Emergency Provider Emergency Medicine; PCP Physician Assistant
DX: R60.0 Localized edema (principal); R07.9 Chest pain, unspecified
CPT/HCPCS: 36415; 71045; 80053; 82550; 83690; 83735; 83880; 84484; 85025; 85610; 85730; 93970; 96374; 99284; J1940

== ENCOUNTER 2023-05-17 22:01 | Emergency (ER) | payer MEDICARE, OTHER, SELFPAY ==
[2023-05-17 22:04] VITALS: BP 180/82
[2023-05-17 22:05] VITALS: BP 144/63; PULSE 107; O2SAT 94
[2023-05-17 22:07] VITALS: BP 144/63; PULSE 105; RESP 19; TEMP 36.8; O2SAT 95; BMI 56.5
--- NOTE | 2023-05-17 22:11 | DI.RAD.S_ITS ---
PROCEDURE: XR KNEE LT 1TO2V INDICATIONS: pain in knee after fall TECHNIQUE: 2 view(s) of the knee acquired. COMPARISON: [facility], CR, XR KNEE ARTHRITIC SERIES BI, 09/16/2021, 15:39. [facility], RG, KNEE 3VW (LT), 12/14/2018, 17:34. CR, XR TIBIA FIBULA LT 2V, 10/30/2018, 16:53. CT, CT LE LT WO CON, 10/30/2018, 17:12. FINDINGS: Bones: Patient is status post knee joint arthroplasty. Hardware components are intact. Old healed distal femoral metaphyseal fracture is noted. Visualized bony structures are intact. Soft tissues: Moderate knee joint effusion. Overlying postoperative changes are noted. IMPRESSION: 1. Left knee arthroplasty with intact prosthesis. 2. Moderate knee joint effusion. Dictated by: Alexx Javier M.D. on 05/17/2023 at 22:56 Approved by: Alexx Javier M.D. on 05/17/2023 at 22:58
[2023-05-17 22:21] VITALS: PULSE 107; RESP 18; O2SAT 95
[2023-05-17 23:00] VITALS: BP 135/87
--- NOTE | 2023-05-17 23:24 | ED_ITS ---
HPI - Fall General Chief Complaint: Fall Stated Complaint: Fall Left Knee pain Time Seen by Provider: 05/17/23 23:24 Source: patient and EMS Mode of arrival: EMS History of Present Illness HPI Narrative: Patient 3-year-old female history of morbid obesity to stroke, hypertension presenting today with increasing weakness and falls. He reports I both she and her and other family members have had upper respiratory like symptoms no real fever or cough he is not feeling great for the past couple of days. Son at bedside reports that she is fallen twice in last 2 days. It is atypical for her. She does use a lift chair she has walker she has a wheelchair which she typically can manage. She reports that today her left knee just gave out on her buckled and she fell going to the bathroom. They are unable to lift her requiring EMS transport. She is having some pain no hip pain just isolated knee pain. Denies hitting her head or losing consciousness. No chest pain or shortness of breath. Just generally not feeling great. Related Data Home Medications Medication Instructions Recorded Confirmed albuterol sulfate 90 mcg/actuation 2 puff INH Q4HP PRN Shortness Of 04/26/13 07/26/22 aerosol inhaler (Ventolin HFA) Breath #0 puffs oxybutynin chloride 15 mg 15 mg PO BID ##0 04/26/13 11/30/21 tablet,extended release 24 hr amlodipine 5 mg tablet (Norvasc) 10 mg PO DAILY ##0 05/02/17 07/26/22 atorvastatin 80 mg tablet 80 mg PO BEDTIME ##0 05/02/17 07/26/22 clopidogrel 75 mg tablet 75 mg PO DAILY 10/30/18 07/26/22 losartan 100 mg tablet 100 mg PO DAILY 10/30/18 11/30/21 fluticasone 250 mcg-salmeterol 50 1 inh inhalation BID 11/30/21 11/30/21 mcg/dose blistr powdr for inhalation (Advair Diskus) Previous Rx's Medication Instructions Recorded benzonatate 200 mg capsule 200 mg PO BID PRN cough #20 caps 11/30/21 lidocaine 5 % topical patch 1 patch topical DAILY #15 ea 11/30/21 (Lidoderm) tramadol 50 mg tablet 50 mg PO TID PRN pain #20 tabs 11/30/21 furosemide 20 mg tablet (Lasix) 20 mg PO DAILY #7 tabs 04/23/23 clotrimazole 1 % topical cream 1 applic topical BID 8 weeks #90 05/18/23 (Antifungal (clotrimazole)) grams hydrocodone 5 mg-acetaminophen 325 1 tab PO Q6H PRN pain #10 tabs 05/18/23 mg tablet tramadol 50 mg tablet 50 mg PO Q8H PRN pain #14 tabs 05/18/23 Allergies Allergy/AdvReac Type Severity Reaction Status Date / Time adhesive [ADHESIVE] Allergy Severe WATER Verified 04/23/23 14:19 BLISTERS *PAPER/SILK TAPE OK* chicken derived Allergy Severe DIARRHEA, Verified 04/23/23 14:19 [CHICKEN DERIVED] VOMITING, STOMACH CRAMPS Patient History Medical History (Updated 05/18/23 @ 01:44 by Saige Bar DO) Morbid obesity Social History household members: spouse Smoking Status: Former smoker alcohol intake: current Smoking Status: Former smoker alcohol intake frequency: holidays/special occasions only Alcohol type: hard liquor Substance Use Type: does not use Exam Initial Vital Signs Initial Vital Signs: Vital Signs Blood Pressure 180/82 H 05/17/23 22:04 GENERAL: Alert 73-year-old female morbid obesity HEENT: Head atraumatic,EOMI, pupils reactive, face symmetric, moist mucous membranes CARDIOVASCULAR: Regular rate and rhythm without murmurs, rubs or gallops. RESPIRATORY: Breath sounds equal bilaterally, no wheezes rales or rhonchi. EXTREMITIES: Normal range of motion, no clubbing or edema. Neurovascularly intact Left lower extremity knee tender a little swollen distal pedal pulse intact no hip pain NEUROLOGICAL: Alert and oriented x4.Normal gait and speech. SKIN: Warm, dry, no laceration, no petechiae, no rashes or lesions. Course Orders Ordered: ED Orders 05/17/23 22:11 XR knee LT 1to2V Stat 05/18/23 00:20 COVID19 -Nasal RAPID Stat Discontinued Medications Hydrocodone Bitart/Acetaminophen (Hydrocodone/Acet 5/325 Tablet) 1 tab PO NOW ONE Stop: 05/18/23 01:29 Last Admin: 05/18/23 03:19 Dose: 1 tab Documented By: NGOZI Ketorolac Tromethamine (Ketorolac 30 Mg/Ml Vial) 15 mg IV NOW ONE Stop: 05/17/23 23:26 Last Admin: 05/17/23 23:36 Dose: 15 mg Documented By: JULIO Tramadol HCl (Tramadol 50 Mg Tablet) 50 mg PO NOW ONE Stop: 05/17/23 23:26 Last Admin: 05/17/23 23:37 Dose: 50 mg Documented By: JULIO Vital Signs Vital signs: Vital Signs - 8 hr 05/17/23 22:04 05/17/23 22:04 05/17/23 22:05 Temperature Pulse Rate Respiratory Rate Blood Pressure 180/82 H 180/82 H 144/63 H Pulse Oximetry Oxygen Delivery Method 05/17/23 22:05 05/17/23 22:07 05/17/23 22:21 Temperature 98.3 F Pulse Rate 107 H 105 H 107 H Respiratory Rate 19 18 Blood Pressure 144/63 H Pulse Oximetry 94 95 95 Oxygen Delivery Method Room Air 05/17/23 23:00 05/17/23 23:30 05/18/23 00:00 Temperature Pulse Rate Respiratory Rate Blood Pressure 135/87 141/67 H 148/68 H Pulse Oximetry Oxygen Delivery Method 05/18/23 02:13 05/18/23 02:14 Temperature Pulse Rate 62 Respiratory Rate 18 Blood Pressure 158/77 H Pulse Oximetry 96 Oxygen Delivery Method MDM - Fall Lab Data 05/17/23 00:20 05/17/23 00:20 Labs: Lab Results 05/17/23 05/18/23 Range/Units 00:20 00:20 WBC 6.2 (4.5-11.0) X10^3/uL RBC 4.31 (4.0-5.2) X10^6/uL Hgb 12.5 (12.0-16.0) g/dL Hct 37.9 (36-46) % MCV 87.9 (80-100) fL MCH 29.0 (26-34) PG MCHC 33.0 (30-36) % RDW 16.0 H (11.6-14.8) % Plt Count 147 L (150-400) X10^3/uL Neut % (Auto) 69.6 (50-75) % Lymph % (Auto) 14.7 L (25-40) % [place] % (Auto) 14.2 H (3-14) % Eos % (Auto) 0.5 L (2-4) % Baso % (Auto) 1.0 (0-2) % Neut # (Auto) 4300 (6007-8650) /uL Lymph # (Auto) 900 L (1609-5861) /uL [place] # (Auto) 900 (0-900) /uL Eos # (Auto) 0 (0-450) /uL Baso # (Auto) 100 (0-100) /uL Sodium 135 L (137-145) mmol/L Potassium 4.3 (3.4-5.1) mmol/L Chloride 101 (98-107) mmol/L Carbon Dioxide 26 (22-32) mmol/L BUN 18 H (7-17) mg/dL Creatinine 0.77 (0.52-1.04) mg/dL Estimated GFR > 60 (>60) mL/min BUN/Creatinine Ratio 23.4 H (6-22) Glucose 142 H (80-110) mg/dL Calcium 9.1 (8.4-10.2) mg/dL Total Bilirubin 0.5 (0.2-1.3) mg/dL AST 116 H (14-36) IU/L ALT 69 H (<35) IU/L Alkaline Phosphatase 108 (38-126) U/L Total Protein 8.4 H (6.3-8.2) g/dL Albumin 3.6 (3.5-5.0) g/dL Globulin 4.8 H (1.7-4.1) g/dL Albumin/Globulin Ratio 0.8 L (1.0-2.8) SARS-CoV-2 (PCR) Positive H (Negative) Imaging Data Extremity x-ray #1: Radiologist's Impression: PROCEDURE: XR KNEE LT 1TO2V INDICATIONS: pain in knee after fall TECHNIQUE: 2 view(s) of the knee acquired. COMPARISON: [facility], CR, XR KNEE ARTHRITIC SERIES BI, 09/16/2021, 15:39. [facility], RG, KNEE 3VW (LT), 12/14/2018, 17:34. CR, XR TIBIA FIBULA LT 2V, 10/30/2018, 16:53. CT, CT LE LT WO CON, 10/30/2018, 17:12. FINDINGS: Bones: Patient is status post knee joint arthroplasty. Hardware components are intact. Old healed distal femoral metaphyseal fracture is noted. Visualized bony structures are intact. Soft tissues: Moderate knee joint effusion. Overlying postoperative changes are noted. IMPRESSION: 1. Left knee arthroplasty with intact prosthesis. 2. Moderate knee joint effusion. MDM Narrative Medical decision making narrative: Patient is 73-year-old female presents today with left knee pain after fall. She said upper respiratory like symptoms she is found to be COVID positive not hypoxic. Blood work reassuring no leukocytosis or LUCIANO. She reports that tramadol typically helps with her pain. He is given Toradol and tramadol here in the ED. X-ray is negative for fracture or. I suspect that she is fallen a couple times secondary to COVID and weakness. However not hypoxic not having a other symptoms. She has a chronic fungal rash under her breasts what she is also complaining of. With assistance she is able to get out of bed she is a lift chair at home she is able to bear weight with a walker and get to a wheelchair. She is a wheelchair at home at this time there really is no need for admission she has everything at home. Patient was wheeled out to the car unable to get herself into the car actually required a lift assist from EMS police department. It was offered for her to come back into the ED and do a BLS home however they declined stating that they would call for lift assist when they arrived home. Discharge Plan Departure Patient Disposition: Home Clinical Impression: COVID-19, Left knee sprain Instructions: Knee Sprain, COVID-19 Activity Restrictions/Additional Instructions: *You have been diagnosed with COVID-19 and left knee sprain *What to do: At this time I do recommend that you use your wheelchair you may increase in ambulate as tolerated. Support knee is best you can. You will continue to feel weak and have some body aches with the COVID-19. Please stay hydrated monitor oxygen *Continue to take medications as directed Tramadol 1-2 tablets every 6 hours if needed for pain Motrin 600 mg every 6 hours if needed for [id number] [place] 1 tablet every 6 hours if needed for severe pain (do not combine with tramadol) *Follow up with your primary care provider in 2-3 days or call [phone] *Return to ER if you should have increasing pain, confusion weakness oxygen less than 90% shortness of breath chest or any new, worsening or concerning symptoms CONTROLLED SUBSTANCE DISCHARGE (Narcotoic/benzodiazepine/Flexeril/Phenergan) 1. You have been prescribed narcotic medications, it does have acetaminophen/Tylenol/paracetamol in it, DO NOT TAKE MORE THAN 4,00mg in 24 hours of Tylenol. TRAMADOL DOES NOT CONTAIN TYLENOL 2. Please understand that we cannot provide further refills of narcotics, benzodiazepines or controlled substances through the ED and her pain management will need to be through your provider. 3. While on these medications you cannot drive or operate heavy machinery. 4. You cannot sign legal documents or perform any duties such as this. 5. As long as you're taking opiate pain medications he should also be taking a stool softener such as Colace, Dulcolax, MiraLAX or prune juice, to help avoid constipation. Prescriptions: New hydrocodone-acetaminophen 5-325 mg tablet 1 tab PO Q6H PRN (Reason: pain) Qty: 10 0RF tramadol 50 mg tablet 50 mg PO Q8H PRN (Reason: pain) Qty: 14 0RF clotrimazole [Antifungal (clotrimazole)] 1 % cream 1 applic topical BID 56 Days Qty: 90 0RF No Action oxybutynin chloride 15 MG tablet extended release 24hr 15 mg PO BID Qty: 0 albuterol sulfate [Ventolin HFA] 90 MCG/PUFF HFA aerosol inhaler 2 puff INH Q4HP PRN (Reason: Shortness Of Breath) Qty: 0 amlodipine [Norvasc] 5 MG tablet 10 mg PO DAILY Qty: 0 atorvastatin 80 MG tablet 80 mg PO BEDTIME Qty: 0 fluticasone propion-salmeterol [Advair Diskus] 250-50 mcg/dose blister with device 1 inh INHALATION BID Patient Comments: INHALE 1 PUFF BY MOUTH TWICE DAILY benzonatate 200 mg capsule 200 mg PO BID PRN (Reason: cough) Qty: 20 0RF lidocaine [Lidoderm] 5 % adhesive patch,medicated 1 patch TOP DAILY Qty: 15 0RF Rx Instructions: leave on most painful area for 12 hrs tramadol 50 mg tablet 50 mg PO TID PRN (Reason: pain) Qty: 20 0RF clopidogrel 75 mg Tablet 75 mg PO DAILY losartan 100 mg Tablet 100 mg PO DAILY furosemide [Lasix] 20 mg tablet 20 mg PO DAILY Qty: 7 0RF Referrals: Dulce Wellington PA-C [Primary Care Provider] - Stand Alone Forms: Patient Portal/API
[2023-05-17 23:30] VITALS: BP 141/67
[2023-05-17] MEDS: KETOROLAC 30 MG/ML VIAL 15 MG IV (23:36)
[2023-05-17] MEDS: TRAMADOL 50 MG TABLET PO (23:37)
[2023-05-18] VITALS: BP 148/68
[2023-05-18 00:27] LABS: Add Manual Diff / Slide Review NO; Basophils Absolute Auto 100 /uL (0-100); Eosinophils Absolute Auto 0 /uL (0-450); Eosinophils Percent Auto 0.5 % (2-4); Hematocrit 37.9 % (36-46); Hemoglobin 12.5 g/dL (12.0-16.0); Lymphocytes Absolute Auto 900 /uL (1100-4500); Lymphocytes Percent Auto 14.7 % (25-40); Mean Corpuscular Volume 87.9 fL (80-100); Monocytes Absolute Auto 900 /uL (0-900); Monocytes Percent Auto 14.2 % (3-14); Neutrophils Absolute Auto 4300 /uL (1500-7000); Neutrophils Percent Auto 69.6 % (50-75); Platelet Count 147 X10^3/uL (150-400); Red Blood Cell Count 4.31 X10^6/uL (4.0-5.2); White Blood Cell Count 6.2 X10^3/uL (4.5-11.0)
[2023-05-18 00:35] LABS: COVID19 -Nasal RAPID POSITIVE (Negative)
[2023-05-18 00:37] LABS: Alanine Aminotransferase 69 IU/L (<35); Albumin 3.6 g/dL (3.5-5.0); Albumin Globulin Ratio 0.8 (1.0-2.8); Alkaline Phosphatase 108 U/L (38-126); Aspartate Aminotransferase 116 IU/L (14-36); BUN Creatinine Ratio 23.4 (6-22); Bilirubin Total 0.5 mg/dL (0.2-1.3); Blood Urea Nitrogen 18 mg/dL (7-17); Calcium 9.1 mg/dL (8.4-10.2); Carbon Dioxide 26 mmol/L (22-32); Chloride 101 mmol/L (98-107); Estimated Glomerular Filt Rate > 60 mL/min (>60); Globulin 4.8 g/dL (1.7-4.1); Glucose 142 mg/dL (80-110); HEMOLYSIS 17 (0-50); Potassium 4.3 mmol/L (3.4-5.1); Sodium 135 mmol/L (137-145); Total Protein 8.4 g/dL (6.3-8.2)
[2023-05-18 02:13] VITALS: PULSE 62; O2SAT 96
[2023-05-18 02:14] VITALS: BP 158/77; RESP 18
[2023-05-18] MEDS: HYDROCODONE/ACET 5/325 TABLET 1 TAB PO (03:19)
== END 2023-05-18 03:50 | disposition home or self-care (01) ==
PROVIDERS: Emergency Provider Emergency Medicine; PCP Physician Assistant
DX: S83.92XA Sprain of unspecified site of left knee, initial encounter (principal); U07.1 COVID-19; W19.XXXD Unspecified fall, subsequent encounter; R29.6 Repeated falls
CPT/HCPCS: 36415; 73560; 80053; 85025; 87635; 96374; 99284; C9803; J1885

== ENCOUNTER 2023-05-22 14:42 | Emergency (ER) | payer MEDICARE, OTHER, SELFPAY ==
[2023-05-22] VITALS (11 sets, daily range): BP systolic 111–160; BP diastolic 58–90; PULSE 90–105; RESP 18; TEMP 37; O2SAT 92–95; BMI 51.5
--- NOTE | 2023-05-22 14:59 | DI.RAD.S_ITS ---
PROCEDURE: XR HIP W PEL IF DONE LT 2V INDICATIONS: fall TECHNIQUE: AP pelvis with lateral view(s) of the left hip(s). COMPARISON: [facility], CR, XR FEMUR LT MIN 2V, 10/30/2018, 16:53. [facility], CR, XR FEMUR LT MIN 2V, 05/22/2023, 15:28. FINDINGS: Bones: No fractures or dislocations. Pelvic ring appears intact. No suspicious bony lesions. Left femur hardware is partially seen. Age-appropriate lower lumbar spine degenerative changes are noted. Soft tissues: The visualized bowel gas pattern is normal. No suspicious soft tissue calcifications. Left-sided pelvic clips are seen IMPRESSION: No displaced fracture can be seen on these plain films. If there is point tenderness (or other clinical suspicion for a fracture not seen on these images) then a dedicated CT could be considered for further evaluation, if clinically appropriate. Postoperative and degenerative changes are seen. Dictated by: Prabhu Chan M.D. on 05/22/2023 at 14:50 Approved by: Prabhu Chan M.D. on 05/22/2023 at 14:51
--- NOTE | 2023-05-22 15:05 | ED.LOWEXIN ---
HPI - Extremity Injury (Lower) <Terry Elliott PA-C - Last Filed: 05/22/23 16:08> General Chief Complaint: Extremity Injury, Lower Stated Complaint: L hip pain Time Seen by Provider: 05/22/23 15:04 Source: patient Mode of arrival: Ambulatory History of Present Illness HPI Narrative: This is a 73-year-old female presents to the emergency department due to left hip pain onset 6 days ago after falling. She was seen in the ED shortly after the fall where they did a left knee x-ray was negative. Patient began developing left hip pain and is coming in again for x-ray. She denies any numbness in her distal extremity. States it hurts to move her left hip. Related Data Home Medications Medication Instructions Recorded Confirmed albuterol sulfate 90 mcg/actuation 2 puff INH Q4HP PRN Shortness Of 04/26/13 07/26/22 aerosol inhaler (Ventolin HFA) Breath #0 puffs oxybutynin chloride 15 mg 15 mg PO BID ##0 04/26/13 11/30/21 tablet,extended release 24 hr amlodipine 5 mg tablet (Norvasc) 10 mg PO DAILY ##0 05/02/17 07/26/22 atorvastatin 80 mg tablet 80 mg PO BEDTIME ##0 05/02/17 07/26/22 clopidogrel 75 mg tablet 75 mg PO DAILY 10/30/18 07/26/22 losartan 100 mg tablet 100 mg PO DAILY 10/30/18 11/30/21 fluticasone 250 mcg-salmeterol 50 1 inh inhalation BID 11/30/21 11/30/21 mcg/dose blistr powdr for inhalation (Advair Diskus) Previous Rx's Medication Instructions Recorded benzonatate 200 mg capsule 200 mg PO BID PRN cough #20 caps 11/30/21 lidocaine 5 % topical patch 1 patch topical DAILY #15 ea 11/30/21 (Lidoderm) tramadol 50 mg tablet 50 mg PO TID PRN pain #20 tabs 11/30/21 furosemide 20 mg tablet (Lasix) 20 mg PO DAILY #7 tabs 04/23/23 clotrimazole 1 % topical cream 1 applic topical BID 8 weeks #90 05/18/23 (Antifungal (clotrimazole)) grams hydrocodone 5 mg-acetaminophen 325 1 tab PO Q6H PRN pain #10 tabs 05/18/23 mg tablet tramadol 50 mg tablet 50 mg PO Q8H PRN pain #14 tabs 05/18/23 Allergies Allergy/AdvReac Type Severity Reaction Status Date / Time adhesive [ADHESIVE] Allergy Severe WATER Verified 05/22/23 14:56 BLISTERS *PAPER/SILK TAPE OK* chicken derived Allergy Severe DIARRHEA, Verified 05/22/23 14:56 [CHICKEN DERIVED] VOMITING, STOMACH CRAMPS Review of Systems <Terry Elliott PA-C - Last Filed: 05/22/23 16:08> Review of Systems Narrative: GENERAL: Denies chills, fatigue, malaise, fever, sweats. HEENT: Denies sinus pain, ear pain, sore throat, difficulty swallowing, dizziness. RESPIRATORY: Denies dyspnea, cough, wheezing, hemoptysis, sputum. CARDIOVASCULAR: Denies chest pain, palpitations, orthopnea, edema, GASTROINTESTINAL: Denies nausea, vomiting, abdominal pain, diarrhea, constipation, melena. : Denies dysuria, frequency, incontinence, hematuria, urinary retention. MUSCULOSKELETAL: Reports left hip and left knee pain, otherwise denies weakness, joint pain, or bony pain SKIN: Denies rash, skin lesions, or other NEUROLOGIC: Denies weakness, headache, numbness, change in speech, confusion, seizures, incoordination. PSYCHIATRIC: No concerning psychosocial issues. 12 point review of systems is negative except for those stated above Patient History <Terry Elliott PA-C - Last Filed: 05/22/23 16:08> Medical History (Updated 05/22/23 @ 16:08 by Terry Elliott PA-C) Morbid obesity Social History household members: spouse Smoking Status: Former smoker alcohol intake: current Smoking Status: Former smoker alcohol intake frequency: holidays/special occasions only Alcohol type: hard liquor Substance Use Type: does not use Exam <Terry Elliott PA-C - Last Filed: 05/22/23 16:08> Narrative Exam Narrative: GENERAL: Well-developed patient, in mild distress. HEAD: Atraumatic. Normocephalic. EYES: Pupils equal round and reactive. Extraocular motions intact. No scleral icterus. No injection or drainage. ENT: Nose without bleeding, purulent drainage. Throat without erythema, tonsillar hypertrophy or exudate. Airway patent. NECK: Trachea midline. Non tender CARDIOVASCULAR: Regular rate and rhythm without murmurs, gallops, or rubs. RESPIRATORY: Clear to auscultation. Breath sounds equal bilaterally. No wheezes, rales, or rhonchi. GASTROINTESTINAL: Abdomen soft, non-tender, nondistended. EXTREMITIES: Tenderness to palpation to left lateral hip BACK: Nontender without deformity or crepitance. No flank tenderness. NEURO: AOx3. SKIN: No rash or erythema of visible areas Initial Vital Signs Initial Vital Signs: Vital Signs Pulse Rate 102 H 05/22/23 14:46 Pulse Oximetry 94 05/22/23 14:46 <DO Gasper Jaquez Last Filed: 05/23/23 08:03> Initial Vital Signs Initial Vital Signs: Vital Signs Pulse Rate 102 H 05/22/23 14:46 Pulse Oximetry 94 05/22/23 14:46 Course <Terry Elliott PA-C - Last Filed: 05/22/23 16:08> Orders Ordered: Discontinued Medications Ketorolac Tromethamine (Ketorolac 30 Mg/Ml Vial) 15 mg IV NOW ONE Stop: 05/22/23 16:56 Last Admin: 05/22/23 17:04 Dose: 15 mg Documented By: SPF Vital Signs Vital signs: Vital Signs - 8 hr 05/22/23 14:52 Temperature 98.6 F Pulse Rate 105 H Respiratory Rate 18 Blood Pressure 141/64 H Pulse Oximetry 95 Oxygen Delivery Method Room Air <DO Gasper Jaquez Last Filed: 05/23/23 08:03> Orders Ordered: Discontinued Medications Ketorolac Tromethamine (Ketorolac 30 Mg/Ml Vial) 15 mg IV NOW ONE Stop: 05/22/23 16:56 Last Admin: 05/22/23 17:04 Dose: 15 mg Documented By: SPF Vital Signs Vital signs: Vital Signs - 8 hr 05/22/23 14:52 Temperature 98.6 F Pulse Rate 105 H Respiratory Rate 18 Blood Pressure 141/64 H Pulse Oximetry 95 Oxygen Delivery Method Room Air MDM - Extremity Injury (Lower) <GALDINO Whitfield Last Filed: 05/22/23 16:08> Imaging Data Extremity x-ray #1: Radiologist's Impression: [address] [place] [address] XRay Report Signed Patient: Socorro Valenzuela MR#: [id number] : 1950 Acct:[id number] Age/Sex: 73 / F Date of Service: 05/22/23 Loc: ED Accession Number: [id number] Procedure: XR femur LT min 2V Ordering Provider: Mikayla Woodard D.O. PROCEDURE: XR FEMUR LT MIN 2V INDICATIONS: L hip pain, fall TECHNIQUE: 2 views of the femur were acquired. COMPARISON: [facility], CR, XR HIP W PEL IF DONE LT 2V, 05/22/2023, 15:08. [facility], CR, XR KNEE LT 1TO2V, 05/17/2023, 22:10. [facility], CR, XR FEMUR LT MIN 2V, 10/30/2018, 16:53. FINDINGS: Bones: There is a remote fracture of the distal left femur. No acute fracture is seen. Intact hardware can be seen involving the left femoral shaft as well as the left knee. Soft tissues: No suspicious soft tissue calcifications or masses. Atherosclerotic calcification is noted. IMPRESSION: Negative for acute fracture. Remote, healed distal femur fracture seen. Intact appearing hardware. Dictated by: Prabhu Chan M.D. on 05/22/2023 at 14:51 Approved by: Prabhu Chan M.D. on 05/22/2023 at 14:52 Extremity x-ray #2: Radiologist's Impression: [address] [address] XRay Report Signed Patient: Socorro Valenzuela MR#: [id number] : 1950 Acct:[id number] Age/Sex: 73 / F Date of Service: 05/22/23 Loc: ED Accession Number: [id number] Procedure: XR hip w pel if done LT 2V Ordering Provider: Mikayla Woodard D.O. PROCEDURE: XR HIP W PEL IF DONE LT 2V INDICATIONS: fall TECHNIQUE: AP pelvis with lateral view(s) of the left hip(s). COMPARISON: [facility], CR, XR FEMUR LT MIN 2V, 10/30/2018, 16:53. [facility], CR, XR FEMUR LT MIN 2V, 05/22/2023, 15:28. FINDINGS: Bones: No fractures or dislocations. Pelvic ring appears intact. No suspicious bony lesions. Left femur hardware is partially seen. Age-appropriate lower lumbar spine degenerative changes are noted. Soft tissues: The visualized bowel gas pattern is normal. No suspicious soft tissue calcifications. Left-sided pelvic clips are seen IMPRESSION: No displaced fracture can be seen on these plain films. If there is point tenderness (or other clinical suspicion for a fracture not seen on these images) then a dedicated CT could be considered for further evaluation, if clinically appropriate. Postoperative and degenerative changes are seen. Dictated by: Prabhu Chan M.D. on 05/22/2023 at 14:50 Approved by: Prabhu Chan M.D. on 05/22/2023 at 14:51 MDM Narrative Medical decision making narrative: MDM * differential diagnosis includes but not limited to left rib fracture, contusion, soft tissue injury * Prior records reviewed: Patient was seen here 6 days ago due to a fall on her left knee. History of stroke, hypertension. Patient has been having increased weakness and falls she uses a lift chair, walker, and wheelchair at home. She would not hit her head or lose conscious. She denied hip pain at that time. X-ray of the left knee showed a left knee arthroplasty with intact prosthesis as well as a moderate knee joint effusion. Was incidentally found to be COVID positive. Lab work unremarkable. * My lab interpretation: None obtained * My imgaing interpretation: X-ray of the pelvis and left femur negative for any acute new fractures. * Clinical Decision Rules/Scores evaluated: None * Independent discussions with: None ED Course: This is a 73-year-old female presents emergency department complaining of left hip pain. She was seen after her initial fall 6 days ago and was complaining of left knee pain. Knee x-ray at that time was negative. She is not complaining of left hip pain as it developed. Pelvis and left femur x-ray negative for any acute fractures. Recommended symptomatic management. Shared Decision Making: Discussed plan with the patient who is comfortable with the plan. Social Considerations: None Disposition: Discharged home Discharge Plan Departure Patient Disposition: Home Clinical Impression: Acute pain of left hip Activity Restrictions/Additional Instructions: Thank you for coming to the [facility] Emergency Department today. As we discussed your left hip and pelvis x-rays were negative for fractures. This should improve over time with the use of ibuprofen, ice, rest, and elevation. I hope you feel better soon. Please follow up with your primary care provider within a week if your symptoms continue. If you do not have a primary care provider please contact the [facility] Resource line at [phone]. They will ask some questions about your medical history and help you get set up with a provider in the community. Prescriptions: No Action oxybutynin chloride 15 MG tablet extended release 24hr 15 mg PO BID Qty: 0 albuterol sulfate [Ventolin HFA] 90 MCG/PUFF HFA aerosol inhaler 2 puff INH Q4HP PRN (Reason: Shortness Of Breath) Qty: 0 amlodipine [Norvasc] 5 MG tablet 10 mg PO DAILY Qty: 0 atorvastatin 80 MG tablet 80 mg PO BEDTIME Qty: 0 fluticasone propion-salmeterol [Advair Diskus] 250-50 mcg/dose blister with device 1 inh INHALATION BID Patient Comments: INHALE 1 PUFF BY MOUTH TWICE DAILY benzonatate 200 mg capsule 200 mg PO BID PRN (Reason: cough) Qty: 20 0RF lidocaine [Lidoderm] 5 % adhesive patch,medicated 1 patch TOP DAILY Qty: 15 0RF Rx Instructions: leave on most painful area for 12 hrs tramadol 50 mg tablet 50 mg PO TID PRN (Reason: pain) Qty: 20 0RF clopidogrel 75 mg Tablet 75 mg PO DAILY losartan 100 mg Tablet 100 mg PO DAILY furosemide [Lasix] 20 mg tablet 20 mg PO DAILY Qty: 7 0RF hydrocodone-acetaminophen 5-325 mg tablet 1 tab PO Q6H PRN (Reason: pain) Qty: 10 0RF tramadol 50 mg tablet 50 mg PO Q8H PRN (Reason: pain) Qty: 14 0RF clotrimazole [Antifungal (clotrimazole)] 1 % cream 1 applic topical BID 56 Days Qty: 90 0RF Referrals: Dulce Wellington PA-C [Primary Care Provider] - Stand Alone Forms: Patient Portal/API ED Sign-out <Mikayla Woodard DO - Last Filed: 05/23/23 08:03> Cosign ED Attending Cosignature Attestation: I was immediately available in the department for consultation. Documentation has been reviewed.
--- NOTE | 2023-05-22 15:19 | DI.RAD.S_ITS ---
PROCEDURE: XR FEMUR LT MIN 2V INDICATIONS: L hip pain, fall TECHNIQUE: 2 views of the femur were acquired. COMPARISON: [facility], CR, XR HIP W PEL IF DONE LT 2V, 05/22/2023, 15:08. [facility], CR, XR KNEE LT 1TO2V, 05/17/2023, 22:10. [facility], CR, XR FEMUR LT MIN 2V, 10/30/2018, 16:53. FINDINGS: Bones: There is a remote fracture of the distal left femur. No acute fracture is seen. Intact hardware can be seen involving the left femoral shaft as well as the left knee. Soft tissues: No suspicious soft tissue calcifications or masses. Atherosclerotic calcification is noted. IMPRESSION: Negative for acute fracture. Remote, healed distal femur fracture seen. Intact appearing hardware. Dictated by: Prabhu Chan M.D. on 05/22/2023 at 14:51 Approved by: Prabhu Chan M.D. on 05/22/2023 at 14:52
--- NOTE | 2023-05-22 15:30 | PC.NURSE ---
Pt required multiple hands assistance in xray to reposition. After moving off the hard xray table pt states pain is more tolerable.
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
--- NOTE | 2023-05-22 16:21 | PC.NURSE ---
Patient states she is unable to get into either of her family members vehicles due to one being too tall for her to get into, and the other is too small for her. Patient called her daughter and told her she is ready for discharge and will need help securing a ride home.
--- NOTE | 2023-05-22 16:30 | PC.NURSE ---
Upon attempting to figure out transport home for patient, she decided to call her daughter and there is a different family vehicle patient and family believes she can get into. Family states they will arrive aprox 1730 for transport.
[2023-05-22] MEDS: KETOROLAC 30 MG/ML VIAL 15 MG IV (17:04)
--- NOTE | 2023-05-22 18:59 | PC.NURSE ---
Patient required 4person assist to stand and pivot with a walker until she could sit in a wheelchair. Pt was assisted out to ER entrance and again, assisted to stand and pivot to sit in car seat. Pt was extremely anxious about falling and took 15minutes of walking patient through the plan to get her laying down in the car so we could get her feet to fit. Patient eventually agreed to our plan and was assisted to sit in seat with no complications. Family expressed their thanks.
== END 2023-05-22 19:04 | disposition home or self-care (01) ==
PROVIDERS: Emergency Provider Physician Assistant Medical; PCP Physician Assistant
DX: M25.552 Pain in left hip (principal)
CPT/HCPCS: 73502; 73552; 96374; 99283; 99284; J1885

== ENCOUNTER 2024-01-29 11:43 | Emergency (ER) | payer MEDICARE, OTHER, SELFPAY ==
[2024-01-29 11:49] VITALS: BP 151/98; PULSE 94; RESP 20; TEMP 36.9; O2SAT 97; BMI 51.5
[2024-01-29 12:39] VITALS: PULSE 98; O2SAT 96
[2024-01-29 12:40] VITALS: BP 143/68; PULSE 100; O2SAT 97
--- NOTE | 2024-01-29 12:50 | PC.NURSE ---
PT and her son report increased leg pain to bilateral legs worse the past 3x weeks. Increased swelling and weeping, crusty. She denies shortness of breath. History of strokes, taking clopidogrel. Baseline left leg decreased movement d/t strokes.
[2024-01-29 13:00] VITALS: BP 138/75; PULSE 95; RESP 20; O2SAT 97
--- NOTE | 2024-01-29 13:04 | ED_ITS ---
HPI - Extremity Problem General Chief complaint: Extremity Problem,Nontraumatic Stated complaint: swollen legs and rash Time Seen by Provider: 01/29/24 12:23 Source: patient Mode of arrival: Wheelchair History of Present Illness HPI Narrative: Patient is a 73-year-old female here for evaluation of swelling and rash and dry skin to both of her lower extremities. The symptoms have been present for at least a year if not longer. She was not seen a primary doctor during this time. I 1 point she was on Lasix but stopped taking it because she was having quite a bit of urinary incontinence issues. They feel like her symptoms worsened since then. She denies chest pain or shortness of breath. No fevers. She did see a horizontal drill operator last year as well but she states that there was no specific diagnosis made. She does not have a current primary doctor. Related Data Home Medications Medication Instructions Recorded Confirmed albuterol sulfate 90 mcg/actuation 2 puff INH Q4HP PRN Shortness Of 04/26/13 07/26/22 aerosol inhaler (Ventolin HFA) Breath #0 puffs oxybutynin chloride 15 mg 15 mg PO BID ##0 04/26/13 11/30/21 tablet,extended release 24 hr amlodipine 5 mg tablet (Norvasc) 10 mg PO DAILY ##0 05/02/17 07/26/22 atorvastatin 80 mg tablet 80 mg PO BEDTIME ##0 05/02/17 07/26/22 clopidogrel 75 mg tablet 75 mg PO DAILY 10/30/18 07/26/22 losartan 100 mg tablet 100 mg PO DAILY 10/30/18 11/30/21 fluticasone 250 mcg-salmeterol 50 1 inh inhalation BID 11/30/21 11/30/21 mcg/dose blistr powdr for inhalation (Advair Diskus) Previous Rx's Medication Instructions Recorded benzonatate 200 mg capsule 200 mg PO BID PRN cough #20 caps 11/30/21 lidocaine 5 % topical patch 1 patch topical DAILY #15 ea 11/30/21 (Lidoderm) tramadol 50 mg tablet 50 mg PO TID PRN pain #20 tabs 11/30/21 furosemide 20 mg tablet (Lasix) 20 mg PO DAILY #7 tabs 04/23/23 hydrocodone 5 mg-acetaminophen 325 1 tab PO Q6H PRN pain #10 tabs 05/18/23 mg tablet tramadol 50 mg tablet 50 mg PO Q8H PRN pain #14 tabs 05/18/23 furosemide 20 mg tablet (Lasix) 20 mg PO DAILY #30 tabs 01/29/24 Allergies Allergy/AdvReac Type Severity Reaction Status Date / Time adhesive [ADHESIVE] Allergy Severe WATER Verified 05/22/23 14:56 BLISTERS *PAPER/SILK TAPE OK* chicken derived Allergy Severe DIARRHEA, Verified 05/22/23 14:56 [CHICKEN DERIVED] VOMITING, STOMACH CRAMPS Review of Systems Review of Systems Narrative: See HPI Musculoskeletal Musculoskeletal: Reports system reviewed and no additional complaints, except as documented Integumentary/Breasts Skin/Breast: Reports system reviewed and no additional complaints, except as documented Patient History Medical History (Updated 01/29/24 @ 13:07 by Octavio Caba DO) Morbid obesity Social History household members: spouse Smoking Status: Former smoker alcohol intake: current Smoking Status: Former smoker alcohol intake frequency: holidays/special occasions only Alcohol type: hard liquor Substance Use Type: does not use Exam Initial Vital Signs Initial Vital Signs: Vital Signs Temperature 98.4 F 01/29/24 11:49 Pulse Rate 94 H 01/29/24 11:49 Respiratory Rate 20 01/29/24 11:49 Blood Pressure 151/98 H 01/29/24 11:49 Pulse Oximetry 97 01/29/24 11:49 Oxygen Delivery Method Room Air 01/29/24 11:49 HENMT Head: normal to inspection and normocephalic Skin Other: Patient has lichenification and swelling and dryness and cracking to bilateral lower extremities from the knees to the toes. There was no erythema. Extrem General: edema Course Vital Signs Vital signs: Vital Signs - 8 hr 01/29/24 11:49 01/29/24 12:39 01/29/24 12:40 Temperature 98.4 F Pulse Rate 94 H 98 H Respiratory Rate 20 Blood Pressure 151/98 H 143/68 H Pulse Oximetry 97 96 Oxygen Delivery Method Room Air 01/29/24 12:40 Temperature Pulse Rate 100 H Respiratory Rate Blood Pressure Pulse Oximetry 97 Oxygen Delivery Method Room Air MDM - Extremity (Nontraumatic) MDM Narrative Medical decision making narrative: Patient's lower extremity changes today are not new. There was no signs of any infection. I suspect that is secondary to edema and chronic venous stasis changes and mobility issues. There was no indication for antibiotics. No indication for radiologic studies. No indication for labs. Had a long discussion with the patient and her son at bedside. Will start her back on Lasix. She understands that this is going to make her urinate more. They were given phone numbers where they can contact and make a new appointment with a primary doctor here in the local area. They were given return precautions. They expressed understanding and agreement with plan. Discharge Plan Departure Patient Disposition: Home Clinical Impression: Bilateral lower extremity edema Instructions: DI for Peripheral Edema -- Bilateral Activity Restrictions/Additional Instructions: You are going to need follow-up with a primary care doctor. You can contact [phone] to help you establish a primary doctor here in the local area. Return to the emergency department for new symptoms Prescriptions: New furosemide [Lasix] 20 mg tablet 20 mg PO DAILY Qty: 30 2RF No Action oxybutynin chloride 15 MG tablet extended release 24hr 15 mg PO BID Qty: 0 albuterol sulfate [Ventolin HFA] 90 MCG/PUFF HFA aerosol inhaler 2 puff INH Q4HP PRN (Reason: Shortness Of Breath) Qty: 0 amlodipine [Norvasc] 5 MG tablet 10 mg PO DAILY Qty: 0 atorvastatin 80 MG tablet 80 mg PO BEDTIME Qty: 0 fluticasone propion-salmeterol [Advair Diskus] 250-50 mcg/dose blister with device 1 inh INHALATION BID Patient Comments: INHALE 1 PUFF BY MOUTH TWICE DAILY benzonatate 200 mg capsule 200 mg PO BID PRN (Reason: cough) Qty: 20 0RF lidocaine [Lidoderm] 5 % adhesive patch,medicated 1 patch TOP DAILY Qty: 15 0RF Rx Instructions: leave on most painful area for 12 hrs tramadol 50 mg tablet 50 mg PO TID PRN (Reason: pain) Qty: 20 0RF clopidogrel 75 mg Tablet 75 mg PO DAILY losartan 100 mg Tablet 100 mg PO DAILY furosemide [Lasix] 20 mg tablet 20 mg PO DAILY Qty: 7 0RF hydrocodone-acetaminophen 5-325 mg tablet 1 tab PO Q6H PRN (Reason: pain) Qty: 10 0RF tramadol 50 mg tablet 50 mg PO Q8H PRN (Reason: pain) Qty: 14 0RF Referrals: Dulce Wellington PA-C [Primary Care Provider] - Stand Alone Forms: Patient Portal/API
== END 2024-01-29 13:18 | disposition home or self-care (01) ==
PROVIDERS: Emergency Provider Emergency Medicine; PCP Physician Assistant
DX: R60.0 Localized edema (principal); Z79.899 Other long term (current) drug therapy
CPT/HCPCS: 99281

== ENCOUNTER 2024-10-18 17:15 | Inpatient (IN) | payer MEDICARE, OTHER, SELFPAY ==
[2024-10-18] VITALS (8 sets, daily range): BP systolic 127–131; BP diastolic 59–70; PULSE 96–108; RESP 20–27; TEMP 37.3; O2SAT 91–96; BMI 58.3
--- NOTE | 2024-10-18 22:33 | ED.WEAKNESS ---
HPI - Weakness General Chief complaint: Weakness Stated complaint: increases weakness and BLE edema, cellulitis Time Seen by Provider: 10/18/24 22:31 Source: patient, EMS, RN notes reviewed and old records reviewed Mode of arrival: EMS Limitations: no limitations History of Present Illness HPI Narrative: 74-year-old female history of hypertension, dyslipidemia, asthma, strokes on Plavix daily presents with a complaint of increasing weakness and bilateral lower extremity edema. Patient states today she was walking back from the bathroom and felt extremely weak like she was going to fall. She had make it to her chair but states it has been slowly worsening over time. Denies fevers or chills. No headache. No chest pain denies any increased shortness of breath, no lightheadedness or passing out. She denies any nausea or vomiting. No issues with bowel movements such as diarrhea or constipation. She was chronic urinary incontinence but denies any new changes. Notes her legs have been more swollen and the left 1 started weeping about 2 or 3 days ago. She states it has not wiped before. She also states left lower leg is painful over the skin. Related Data Home Medications Medication Instructions Recorded Confirmed albuterol sulfate 90 mcg/actuation 2 puff INH Q4HP PRN Shortness Of 04/26/13 07/26/22 aerosol inhaler (Ventolin HFA) Breath #0 puffs oxybutynin chloride 15 mg 15 mg PO BID ##0 04/26/13 11/30/21 tablet,extended release 24 hr amlodipine 5 mg tablet (Norvasc) 10 mg PO DAILY ##0 05/02/17 07/26/22 atorvastatin 80 mg tablet 80 mg PO BEDTIME ##0 05/02/17 07/26/22 clopidogrel 75 mg tablet 75 mg PO DAILY 10/30/18 07/26/22 losartan 100 mg tablet 100 mg PO DAILY 10/30/18 11/30/21 fluticasone 250 mcg-salmeterol 50 1 inh inhalation BID 11/30/21 11/30/21 mcg/dose blistr powdr for inhalation (Advair Diskus) Previous Rx's Medication Instructions Recorded benzonatate 200 mg capsule 200 mg PO BID PRN cough #20 caps 11/30/21 lidocaine 5 % topical patch 1 patch topical DAILY #15 ea 11/30/21 (Lidoderm) tramadol 50 mg tablet 50 mg PO TID PRN pain #20 tabs 11/30/21 furosemide 20 mg tablet (Lasix) 20 mg PO DAILY #7 tabs 04/23/23 hydrocodone 5 mg-acetaminophen 325 1 tab PO Q6H PRN pain #10 tabs 05/18/23 mg tablet tramadol 50 mg tablet 50 mg PO Q8H PRN pain #14 tabs 05/18/23 furosemide 20 mg tablet (Lasix) 20 mg PO DAILY #30 tabs 01/29/24 Allergies Allergy/AdvReac Type Severity Reaction Status Date / Time adhesive [ADHESIVE] Allergy Severe WATER Verified 05/22/23 14:56 BLISTERS *PAPER/SILK TAPE OK* chicken derived Allergy Severe DIARRHEA, Verified 05/22/23 14:56 [CHICKEN DERIVED] VOMITING, STOMACH CRAMPS Review of Systems Review of Systems ROS Unobtainable: All systems reviewed & are unremarkable except as noted in HPI and below Patient History Medical History (Updated 10/19/24 @ 00:48 by Mikayla Woodard DO) Morbid obesity Social History household members: spouse Smoking Status: Former smoker alcohol intake: current Smoking Status: Former smoker alcohol intake frequency: holidays/special occasions only Alcohol type: hard liquor Exam Narrative Exam Narrative: GENERAL: Alert and oriented x three, obese female in mild distress HEENT: Head normocephalic, atraumatic, EOMI, pupils reactive, face symmetric, moist mucous membranes NECK: Supple, full range of motion CARDIOVASCULAR: Regular rate and rhythm without murmurs, rubs or gallops. RESPIRATORY: Breath sounds equal bilaterally, no wheezes rales or rhonchi. ABDOMEN: Soft, nontender. Normoactive bowel sounds all 4 quadrants. No guarding or rebound, rigidity, no mass : No CVA tenderness EXTREMITIES: Normal range of motion, patient has significant bilateral lower extremity edema with chronic venous stasis change and hyperkeratotic skin, left lower extremity has weepage the lower left calf does have some white discharge throughout the hyperkeratotic skin there has been of a foul odor. There is some mild erythema but no warmth, it is localized to the left medial calf. Neurovascularly intact NEUROLOGICAL: Cranial nerves II through XII grossly intact. Moving all extremities SKIN: Warm, dry, no petechiae. See above. Initial Vital Signs Initial Vital Signs: Vital Signs Temperature 99.1 F 10/18/24 17:24 Pulse Rate 98 H 10/18/24 17:24 Respiratory Rate 20 10/18/24 17:24 Blood Pressure 131/59 L 10/18/24 17:24 Pulse Oximetry 95 10/18/24 17:24 Oxygen Delivery Method Room Air 10/18/24 17:24 Course Orders Ordered: ED Orders 10/18/24 22:50 XR chest 1V Stat EKG-12 Lead Stat 10/18/24 22:51 Wound Culture and Gram Stain Stat 10/18/24 23:14 Complete Blood Count AUTO DIFF Stat Comprehensive Metabolic Panel Stat Lipase Stat NT-proBNP (BNP-Adult 18+) Stat PTT Partial Thromboplastin Mandeep Stat Prothrombin Time INR Stat Troponin & CK Cardiac Panel Stat 10/19/24 00:15 UA Complete [Urinalysis and Microscopic] Stat Urine Culture Stat Acetaminophen (Acetaminophen 325 Mg Tablet) 650 mg PO Q6H PRN PRN Reason: Fever/Mild Pain (1-3) Hydrocodone Bitart/Acetaminophen (Hydrocodone/Acet 5/325 Tablet) 1 tab PO Q4H PRN PRN Reason: Pain, Moderate (4-6) Albuterol (Albuterol 2.5 Mg/3 Ml Neb (Adult)) 2.5 mg INH RTQ4HR PRN PRN Reason: Wheezing Albuterol/Ipratropium (Albuterol/Ipratropium 3 Ml Ampul) 3 ml INH [id number] MARS Albuterol/Ipratropium (Albuterol/Ipratropium 3 Ml Ampul) 3 ml INH RTQ2HR PRN PRN Reason: Shortness Of Breath Atorvastatin Calcium (Atorvastatin 20 Mg Tablet) 80 mg PO BEDTIME MARS Budesonide (Budesonide 0.5 Mg/2 Ml Neb) 0.5 mg INH RTBID MARS Clopidogrel Bisulfate (Clopidogrel 75 Mg Tablet) 75 mg PO DAILY MARS Furosemide (Furosemide 40 Mg/4 Ml Vial) 40 mg IV Q8H MARS Heparin Sodium (Porcine) (Heparin 5,000 Unit/Ml Vial) 5,000 unit SUBCUT TID MARS Clindamycin Phosphate (Cleocin) 900 mg in 50 mls @ 50 mls/hr IV Q6H MARS Morphine Sulfate (Morphine 2 Mg/Ml Inj) 2 mg IV Q4HR PRN PRN Reason: Pain, Moderate (4-6) Naloxone HCl (Naloxone 0.4 Mg/Ml Vial) 0.2 mg IV Q2MIN PRN PRN Reason: Opiate Reversal Nystatin (Nystatin Cream 30 Gm) 1 applic TOP BID [facility] Ondansetron HCl (Ondansetron 4 Mg/2 Ml Inj) 4 mg IV Q8HR PRN PRN Reason: Nausea And Vomiting Pantoprazole Sodium (Pantoprazole Dr 40 Mg Tablet) 40 mg PO 0700 MARS Sodium Chloride (Sodium Chloride 0.9% Flush) 10 ml IV PRN PRN PRN Reason: Flush Sodium Chloride (Sodium Chloride 0.9% Flush) 10 ml IV BID MARS Discontinued Medications Budesonide (Budesonide 0.5 Mg/2 Ml Neb) 0.5 mg INH RTBID MARS Furosemide (Furosemide 40 Mg/4 Ml Vial) 40 mg IV NOW ONE Stop: 10/19/24 00:09 Last Admin: 10/19/24 00:24 Dose: 40 mg Documented By: MIN Clindamycin Phosphate (Cleocin) 900 mg in 50 mls @ 50 mls/hr IV NOW ONE Stop: 10/18/24 23:58 Last Infusion: 10/19/24 01:35 Dose: Infused Documented By: Admin: 10/19/24 00:24 Dose: 50 mls/hr Documented By: MIN Non-Formulary Medication (Fluticasone Propion-Salmeterol [Advair Diskus]) 1 inhalation INHALATION BID [facility] Vital Signs Vital signs: Vital Signs - 8 hr 10/18/24 21:08 10/18/24 21:30 10/18/24 22:00 Pulse Rate 108 H 100 H 97 H Respiratory Rate 21 21 23 Blood Pressure Pulse Oximetry 94 94 92 10/18/24 22:30 10/18/24 23:00 10/18/24 23:13 Pulse Rate 97 H 98 H Respiratory Rate 24 27 H Blood Pressure 127/70 Pulse Oximetry 91 96 10/18/24 23:30 10/19/24 00:00 10/19/24 00:30 Pulse Rate 96 H 98 H 93 H Respiratory Rate 24 20 Blood Pressure Pulse Oximetry 93 96 96 MDM - Weakness Lab Data 10/18/24 23:14 10/18/24 23:14 Labs: Lab Results 10/18/24 10/19/24 Range/Units 23:14 00:15 WBC 8.1 (4.5-11.0) X10^3/uL RBC 3.24 L (4.0-5.2) X10^6/uL Hgb 8.6 L (12.0-16.0) g/dL Hct 26.2 L (36-46) % MCV 80.7 (80-100) fL MCH 26.5 (26-34) PG MCHC 32.9 (30-36) % RDW 18.0 H (11.6-14.8) % Plt Count 211 (150-400) X10^3/uL Neut % (Auto) 74.2 (50-75) % Lymph % (Auto) 12.2 L (25-40) % [place] % (Auto) 11.7 (3-14) % Eos % (Auto) 1.3 L (2-4) % Baso % (Auto) 0.6 (0-2) % Neut # (Auto) 6000 (0993-6264) /uL Lymph # (Auto) 1000 L (1815-8466) /uL [place] # (Auto) 900 (0-900) /uL Eos # (Auto) 100 (0-450) /uL Baso # (Auto) 0 (0-100) /uL PT 13.3 H (9.4-12.5) SECONDS INR 1.2 (0.9-1.3) APTT 22 L (25.1-36.5) SECONDS Sodium 137 (137-145) mmol/L Potassium 5.7 H (3.4-5.1) mmol/L Chloride 105 (98-107) mmol/L Carbon Dioxide 23 (22-32) mmol/L BUN 33 H (7-17) mg/dL Creatinine 0.95 (0.52-1.04) mg/dL Estimated GFR > 60 (>60) mL/min BUN/Creatinine Ratio 34.7 H (6-22) Glucose 107 (80-110) mg/dL Calcium 8.6 (8.4-10.2) mg/dL Total Bilirubin 1.0 (0.2-1.3) mg/dL AST 102 H (14-36) IU/L ALT 55 H (<35) IU/L Alkaline Phosphatase 113 (38-126) U/L Total Creatine Kinase 30 (30-135) U/L Troponin I 0.018 (0.01-0.034) ng/mL NT-Pro-B Natriuret Pep 453 H (<450) pg/mL Total Protein 9.2 H (6.3-8.2) g/dL Albumin 3.7 (3.5-5.0) g/dL Globulin 5.5 H (1.7-4.1) g/dL Albumin/Globulin Ratio 0.7 L (1.0-2.8) Lipase 227 (23-300) U/L Urine Color Yellow Urine Appearance Clear Urine pH 6.0 (4.5-8.0) Ur Specific [place] 1.015 (1.000-1.035) Urine Protein Negative (Negative) Urine Glucose (UA) Negative (Negative) g/dL Urine Ketones Negative (NEGATIVE) Urine Occult Blood Negative (Negative) Urine Nitrate Positive H (Negative) Urine Bilirubin Negative (NEGATIVE) Urine Urobilinogen 1.0 (0.2) E.U./dL Ur Leukocyte Esterase Trace H (NEGATIVE) Urine RBC None seen (0-5/HPF) Urine WBC 0-1/hpf (0-5/HPF) Ur Squamous Epith Cells 0-1 /hpf (0-5/HPF) Urine Bacteria Moderate (10-30) H (None) Ur Culture Indicated? Specimen cultured Vol Urine Centrifuged 10ml (spun) ECG Data Attestation: I personally reviewed and interpreted this ECG as follows: Prior ECG tracings: available for review Interpretation: Atrial fibrillation rate of 93 QRS of 98 QTC 435, no acute ST elevation depression appreciated. Patient has prior from 04/09/2015 which was sinus rhythm. MDM Narrative Medical decision making narrative: 74-year-old female with increased weakness, bilateral lower extremity edema and what appears to be potential cellulitis of the left lower leg. Patient's workup shows BNP that is not particularly bit of but chest x-ray and exam patient appears to be fluid overloaded she was not hypoxic but concerned about infection in her lower extremity with her weakness urine analysis was also obtained shows potential UTI. culture sent for lower extremity. Labs show normal white count, hemoglobin is 8.6 was low in 2019 but has not been persistently low. Platelets are 211. Patient and family states she has not had any blood transfusions in the past. Potassium slightly elevated 5.7 but slight hemolysis BUN 33 creatinine 0.95 electrolytes are otherwise appropriate glucose is 107 AST ALT are 102 and 55 bilirubin alk-phos are normal, troponin 0.018 with a BNP of 453. Lipase is 227 EKG AFib rate controlled Chest x-ray she was cardiomegaly congestion of central vessels suggesting CHF and/or fluent volume overload You have been positive for nitrates trace leuks moderate bacteria. Patient received Lasix and clindamycin. Spoke with Dr. Avalos, tele hospitalist accepts for observation. Dr. Avalos saw patient with televisit in department. Discharge Plan Departure Patient Disposition: Admitted as Observation Clinical Impression: Cellulitis of left leg, CHF exacerbation Admit Date/Time: 10/19/24 00:50 Admit Provider: Mitchell Avalos
--- NOTE | 2024-10-18 22:50 | DI.RAD.S_ITS ---
PROCEDURE: XR CHEST 1V INDICATIONS: weakness, chf TECHNIQUE: One view of the chest was acquired. COMPARISON: [facility], CR, XR CHEST 1V, 04/23/2023, 14:43. FINDINGS: Surgical changes and devices: None. Lungs and pleura: Perihilar bronchial wall thickening. Mild interstitial thickening and scarring in lateral mid lung. Low volumes. No focal consolidation, effusion, or pneumothorax. Mediastinum: Mild, stable cardiomegaly. Central vascular cephalization. Stable aortic contour. Bones and chest wall: No suspicious bony lesions. Overlying soft tissues appear unremarkable. IMPRESSION: Cardiomegaly congestion of central vessels suggesting CHF and/or volume overload. No significant pleural effusion or focal alveolar opacity. Dictated by: Jennyfer Garcia M.D. on 10/18/2024 at 23:26 Approved by: Jennyfer Garcia M.D. on 10/18/2024 at 23:27
[2024-10-18 23:25] LABS: Add Manual Diff / Slide Review NO; Basophils Absolute Auto 0 /uL (0-100); Basophils Percent Auto 0.6 % (0-2); Eosinophils Absolute Auto 100 /uL (0-450); Eosinophils Percent Auto 1.3 % (2-4); Hematocrit 26.2 % (36-46); Hemoglobin 8.6 g/dL (12.0-16.0); Lymphocytes Absolute Auto 1000 /uL (1100-4500); Lymphocytes Percent Auto 12.2 % (25-40); Mean Corpuscular HGB Conc 32.9 % (30-36); Mean Corpuscular Hemoglobin 26.5 PG (26-34); Mean Corpuscular Volume 80.7 fL (80-100); Monocytes Absolute Auto 900 /uL (0-900); Monocytes Percent Auto 11.7 % (3-14); Neutrophils Absolute Auto 6000 /uL (1500-7000); Neutrophils Percent Auto 74.2 % (50-75); Platelet Count 211 X10^3/uL (150-400); Red Blood Cell Count 3.24 X10^6/uL (4.0-5.2); White Blood Cell Count 8.1 X10^3/uL (4.5-11.0)
[2024-10-18 23:28] LABS: INR 1.2 (0.9-1.3); Prothrombin Time 13.3 SECONDS (9.4-12.5)
[2024-10-18 23:30] LABS: PTT Partial Thromboplastin Tim 22 SECONDS (25.1-36.5)
[2024-10-19] VITALS (15 sets, daily range): BP systolic 93–172; BP diastolic 31–78; PULSE 74–98; RESP 16–28; TEMP 36.3–36.7; O2SAT 90–96; BMI 58.3
[2024-10-19 00:03] LABS: Alanine Aminotransferase 55 IU/L (<35); Albumin 3.7 g/dL (3.5-5.0); Albumin Globulin Ratio 0.7 (1.0-2.8); Alkaline Phosphatase 113 U/L (38-126); Aspartate Aminotransferase 102 IU/L (14-36); BUN Creatinine Ratio 34.7 (6-22); Blood Urea Nitrogen 33 mg/dL (7-17); Calcium 8.6 mg/dL (8.4-10.2); Carbon Dioxide 23 mmol/L (22-32); Chloride 105 mmol/L (98-107); Creatine Kinase 30 U/L (30-135); Estimated Glomerular Filt Rate > 60 mL/min (>60); Globulin 5.5 g/dL (1.7-4.1); Glucose 107 mg/dL (80-110); Lipase 227 U/L (23-300); Sodium 137 mmol/L (137-145); Total Protein 9.2 g/dL (6.3-8.2)
[2024-10-19 00:06] LABS: HEMOLYSIS 113 (0-50)
[2024-10-19 00:07] LABS: Potassium 5.7 mmol/L (3.4-5.1)
[2024-10-19 00:14] LABS: NT-proBNP (BNP-Adult 18+) 453 pg/mL (<450); Troponin I 0.018 ng/mL (0.01-0.034)
[2024-10-19 00:21] LABS: Appearance Urine UA CLEAR; Bilirubin Urine UA NEGATIVE (NEGATIVE); Color Urine UA YELLOW; Glucose Urine UA NEGATIVE (Negative); Ketones Urine UA NEGATIVE (NEGATIVE); Leukocyte Esterase Urine UA TRACE (NEGATIVE); Nitrite Urine UA POSITIVE (Negative); Occult Blood Urine UA NEGATIVE (Negative); Protein Urine UA NEGATIVE (Negative); Specific Gravity Urine UA 1.015 (1.000-1.035)
[2024-10-19] MEDS: FUROSEMIDE 40 MG/4 ML VIAL IV ×3 (00:24→17:19)
[2024-10-19] MEDS: CLINDAMYCIN 900 MG/50 ML PIGGYBACK 50 MG IV ×4 (00:24→17:20)
[2024-10-19 00:53] LABS: Bacteria Urine Moderate (10-30); Culture Indicated Urine Specimen Cultured; RBC Urine None Seen (0-5/HPF); Squamous Epithelial Cell Urine 0-1 /HPF (0-5/HPF); Urine Volume 10mL (spun); WBC Urine 0-1/HPF (0-5/HPF)
--- NOTE | 2024-10-19 01:47 | EKG_ITS ---
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
--- NOTE | 2024-10-19 02:58 | PM.HP.1 ---
History of Present Illness History of Present Illness Chief complaint: increases weakness and BLE edema, cellulitis Narrative: 74-year-old female with past medical history of asthma, hypertension, hyperlipidemia, CHF, stroke on Plavix and hypertension presents with complaint of increased bilateral lower extremity edema and concern for bilateral leg cellulitis. Per the patient's report, the patient does have a history of stasis dermatitis. The patient was having increased weakness due to her increased leg swelling over the last few weeks. The patient states that she used to take Lasix but has not taken it for unclear reason lately. The patient was ambulating back from the bathroom and felt weak as her leg was very heavy due to swelling and the patient almost fell but did not actually fall. The patient also noted that over the last few days her lower extremity has started increased erythema and with some pain. Otherwise the patient should denies any fever, chills, nausea, vomiting or diarrhea. The patient denies any chest pain or shortness of breath. The patient admits that she does have some weeping of fluid from her legs and especially in her left leg. In the emergency room, the patient was hemodynamically stable and was saturating well on room air. Labs shows a hemoglobin of 8.6 potassium 5.7 troponin of 0.01 and a BNP of 453. UA was negative for UTI. The patient was given IV Lasix as well as IV clindamycin. Chest x-ray did show signs of CHF. [facility] Medical History (Updated 10/19/24 @ 00:48 by Mikayla Woodard DO) Morbid obesity Social History household members: spouse Smoking Status: Former smoker alcohol intake: current Meds Home Medications and Allergies Home Medications Medication Instructions Recorded Confirmed Type albuterol sulfate 90 mcg/actuation 2 puff INH Q4HP PRN Shortness Of 04/26/13 07/26/22 History aerosol inhaler (Ventolin HFA) Breath #0 puffs oxybutynin chloride 15 mg 15 mg PO BID ##0 04/26/13 11/30/21 History tablet,extended release 24 hr amlodipine 5 mg tablet (Norvasc) 10 mg PO DAILY ##0 05/02/17 07/26/22 History atorvastatin 80 mg tablet 80 mg PO BEDTIME ##0 05/02/17 07/26/22 History clopidogrel 75 mg tablet 75 mg PO DAILY 10/30/18 07/26/22 History losartan 100 mg tablet 100 mg PO DAILY 10/30/18 11/30/21 History benzonatate 200 mg capsule 200 mg PO BID PRN cough #20 caps 11/30/21 Rx fluticasone 250 mcg-salmeterol 50 1 inh inhalation BID 11/30/21 11/30/21 History mcg/dose blistr powdr for inhalation (Advair Diskus) lidocaine 5 % topical patch 1 patch topical DAILY #15 ea 11/30/21 07/26/22 Rx (Lidoderm) tramadol 50 mg tablet 50 mg PO TID PRN pain #20 tabs 11/30/21 07/26/22 Rx furosemide 20 mg tablet (Lasix) 20 mg PO DAILY #7 tabs 04/23/23 Rx hydrocodone 5 mg-acetaminophen 325 1 tab PO Q6H PRN pain #10 tabs 05/18/23 Rx mg tablet tramadol 50 mg tablet 50 mg PO Q8H PRN pain #14 tabs 05/18/23 Rx furosemide 20 mg tablet (Lasix) 20 mg PO DAILY #30 tabs 01/29/24 Rx Allergies Allergy/AdvReac Type Severity Reaction Status Date / Time adhesive [ADHESIVE] Allergy Severe WATER Verified 05/22/23 14:56 BLISTERS *PAPER/SILK TAPE OK* chicken derived Allergy Severe DIARRHEA, Verified 05/22/23 14:56 [CHICKEN DERIVED] VOMITING, STOMACH CRAMPS Review of Systems Review of Systems ROS: Yes All systems reviewed with the patient and are negative except as otherwise documented Exam Vital Signs (past 8 hours): - 10/18/24 21:08 10/18/24 21:30 10/18/24 22:00 Temperature Pulse Rate 108 H 100 H 97 H Respiratory Rate 21 21 23 Blood Pressure Pulse Oximetry 94 94 92 Oxygen Flow Rate 10/18/24 22:30 10/18/24 23:00 10/18/24 23:13 Temperature Pulse Rate 97 H 98 H Respiratory Rate 24 27 H Blood Pressure 127/70 Pulse Oximetry 91 96 Oxygen Flow Rate 10/18/24 23:30 10/19/24 00:00 10/19/24 00:30 Temperature Pulse Rate 96 H 98 H 93 H Respiratory Rate 24 20 Blood Pressure Pulse Oximetry 93 96 96 Oxygen Flow Rate 10/19/24 01:00 10/19/24 01:30 10/19/24 01:44 Temperature Pulse Rate 95 H 94 H Respiratory Rate 28 H Blood Pressure 172/78 H Pulse Oximetry 93 93 Oxygen Flow Rate 10/19/24 02:15 Temperature 97.6 F Pulse Rate 95 H Respiratory Rate 24 Blood Pressure 134/59 L Pulse Oximetry 95 Oxygen Flow Rate 0 Oxygen Delivery Method Room Air Oxygen Flow Rate 0 Narrative Exam Narrative: GENERAL: The patient is not in any acute distressed. Awake and alert. HEENT: Nonicteric sclerae, PERRLA, EOMI. Oropharynx clear. Moist mucous membranes. Conjunctivae appear well perfused. HEART: Regular rate and rhythm without murmurs. 1+ lower extremities edema. LUNGS: Clear to auscultation bilaterally. No wheezing, crackles or rhonchi ABDOMEN: Soft, positive bowel sounds, nontender. SKIN: Bilateral stasis dermatitis and signs of cellulitis with some sclaling in both LEs. Otherwise No rash, no excessive bruising, petechiae, or purpura. NEUROLOGIC: AxO x 3. Cranial nerves II-XII intact without motor/sensory deficit. Objective Labs 10/18/24 23:14 10/18/24 23:14 Labs: Laboratory Results - last 24 hr 10/18/24 10/19/24 23:14 00:15 WBC 8.1 RBC 3.24 L Hgb 8.6 L Hct 26.2 L MCV 80.7 MCH 26.5 MCHC 32.9 RDW 18.0 H Plt Count 211 Neut % (Auto) 74.2 Lymph % (Auto) 12.2 L [place] % (Auto) 11.7 Eos % (Auto) 1.3 L Baso % (Auto) 0.6 Neut # (Auto) 6000 Lymph # (Auto) 1000 L [place] # (Auto) 900 Eos # (Auto) 100 Baso # (Auto) 0 PT 13.3 H INR 1.2 APTT 22 L Sodium 137 Potassium 5.7 H Chloride 105 Carbon Dioxide 23 BUN 33 H Creatinine 0.95 Estimated GFR > 60 BUN/Creatinine Ratio 34.7 H Glucose 107 Calcium 8.6 Total Bilirubin 1.0 AST 102 H ALT 55 H Alkaline Phosphatase 113 Total Creatine Kinase 30 Troponin I 0.018 NT-Pro-B Natriuret Pep 453 H Total Protein 9.2 H Albumin 3.7 Globulin 5.5 H Albumin/Globulin Ratio 0.7 L Lipase 227 Urine Color Yellow Urine Appearance Clear Urine pH 6.0 Ur Specific [place] 1.015 Urine Protein Negative Urine Glucose (UA) Negative Urine Ketones Negative Urine Occult Blood Negative Urine Nitrate Positive H Urine Bilirubin Negative Urine Urobilinogen 1.0 Ur Leukocyte Esterase Trace H Urine RBC None seen Urine WBC 0-1/hpf Ur Squamous Epith Cells 0-1 /hpf Urine Bacteria Moderate (10-30) H Ur Culture Indicated? Specimen cultured Vol Urine Centrifuged 10ml (spun) Assessment & Plan Assessment & Plan narrative: Bilateral lower extremity cellulitis. Admit the patient to medical inpatient. Continue IV clindamycin. Of note the patient is not septic at this time. Acute on chronic heart failure exacerbation. Of note the patient is still saturating well on room air. This might be just a mild exacerbation. Continue Lasix 40 mg IV every 6 hours and monitor renal function and urine output. Of note if no recent echocardiogram is done with suggest to obtain echocardiogram in the morning. Hypertension. Monitor blood pressure and resume home medication accordingly. Hyperlipidemia. Resume home statin. Chronic pain. Resume home medication including oxycodone. DVT prophylaxis heparin subcu. CODE STATUS full code. Disposition likely home in 2 to 3 days. - As the provider of this telehealth evaluation, requested by the patient's evaluating physician, I attest that I introduced myself to the patient, provided my credentials and determined that telemedicine via a real-time, 2 way interactive audio and video platform is an appropriate and effective means of providing this service. - I reviewed the patient's chart and had a discussion with the member of the patient's treatment team. - The patient and I mutually agreed with continuation of this evaluation via telemedicine. The patient consented for the telemedicine evaluation. - This virtual encounter was taken place from [place]. The encounter was approximately 35 minutes. The nurse was present during the entire time of the encounter and was able to move the stethoscope in appropriate directions. The patient was evaluated at [facility]. Time-Based Coding :: [TOTAL MINUTES] spent with patient and on the chart (including review of chart, obtaining history, exam, reviewing outside data, placing orders, documenting exam and treatment plan, and counseling patient) on [DATE].
[2024-10-19] MEDS: HYDROCODONE/ACET 5/325 TABLET 1 TAB PO ×2 (05:43→11:29)
[2024-10-19 06:22] LABS: BUN Creatinine Ratio 32.3 (6-22); Blood Urea Nitrogen 32 mg/dL (7-17); Calcium 8.9 mg/dL (8.4-10.2); Carbon Dioxide 24 mmol/L (22-32); Chloride 105 mmol/L (98-107); Estimated Glomerular Filt Rate 59 mL/min (>60); Glucose 108 mg/dL (80-110); HEMOLYSIS < 15 (0-50); Potassium 4.6 mmol/L (3.4-5.1); Sodium 137 mmol/L (137-145)
[2024-10-19 06:48] LABS: Add Manual Diff / Slide Review NO; Basophils Absolute Auto 0 /uL (0-100); Basophils Percent Auto 0.6 % (0-2); Eosinophils Absolute Auto 100 /uL (0-450); Eosinophils Percent Auto 1.9 % (2-4); Hematocrit 25.1 % (36-46); Hemoglobin 8.2 g/dL (12.0-16.0); Lymphocytes Absolute Auto 700 /uL (1100-4500); Lymphocytes Percent Auto 11.1 % (25-40); Mean Corpuscular HGB Conc 32.5 % (30-36); Mean Corpuscular Hemoglobin 26.4 PG (26-34); Mean Corpuscular Volume 81.3 fL (80-100); Monocytes Absolute Auto 900 /uL (0-900); Monocytes Percent Auto 13.9 % (3-14); Neutrophils Absolute Auto 4800 /uL (1500-7000); Neutrophils Percent Auto 72.5 % (50-75); Platelet Count 225 X10^3/uL (150-400); Red Blood Cell Count 3.09 X10^6/uL (4.0-5.2); Red Cell Distribution Width 18.3 % (11.6-14.8); White Blood Cell Count 6.6 X10^3/uL (4.5-11.0)
[2024-10-19] MEDS: PANTOPRAZOLE DR 40 MG TABLET PO (06:56)
[2024-10-19] MEDS: MORPHINE 2 MG/ML INJ IV (06:59)
[2024-10-19] MEDS: SODIUM CHLORIDE 0.9% FLUSH 10 ML IV ×2 (08:28→21:03)
[2024-10-19] MEDS: HEPARIN 5,000 UNIT/ML VIAL 5000 UNIT SUBCUT ×3 (08:28→21:03)
[2024-10-19] MEDS: CLOPIDOGREL 75 MG TABLET PO (08:28)
[2024-10-19] MEDS: ALBUTEROL/IPRATROPIUM 3 ML AMPUL INH ×2 (09:21→20:07)
[2024-10-19] MEDS: BUDESONIDE 0.5 MG/2 ML NEB INH ×2 (09:22→20:07)
--- NOTE | 2024-10-19 10:30 | PT.IIE ---
Medical History (Last Reviewed 10/18/24 @ 22:57 by Mikayla Woodard DO) Morbid obesity Physical Therapy Inpatient Evaluation/Re-Eval M1 PT/OT-IP Prior Functional Status Start: 10/19/24 12:57 Freq: NEEDED Status: Active Protocol: Document 10/19/24 10:30 AB (Rec: 10/19/24 13:11 AB [id number]) Medical Review Prior Functional Status Medical History Reviewed Yes Communication able to make needs known Mobility and Gait pt stated that she was modified independent with transfers and ambulation using a 4WW. only able to walk short distances Activities of Daily Living and IADL's per OT note: Pt states needs assist for LB dressing, and states just does the best she can for toileting an sponging off. Social History Household Members spouse,children Living Arrangements House Number of Floors (Floors) One Floor Number of Stairs To Enter/Railing? ramp to enter Home Environment Standard Height Toilet,Tub/ Shower,Ramp Home Equipment Four Wheel Walker,Raised Toilet Seat w/Armrests,Shower Seat with Backrest,Hand Held Shower,Lift Recliner,Grab Bars In Shower Additional Social History Comment pt sleeps on a lift recliner chair pt lives with spouse but stated that spouse is handicapped; daughter lives with pt but goes to work and will not be able to provide 24 /7 assist to pt M2 PT-IP Current Condition Start: 10/19/24 12:57 Freq: NEEDED Status: Active Protocol: Document 10/19/24 10:30 AB (Rec: 10/19/24 13:11 AB [id number]) Physical Therapy Current Condition Current Condition Evaluation Date 10/19/24 Treatment Diagnosis CHF exacerbation; LLE cellulitis; difficulty in walking Onset Date 10/19/24 M3 PT-IP Subjective Start: 10/19/24 12:57 Freq: NEEDED Status: Active Protocol: Document 10/19/24 10:30 AB (Rec: 10/19/24 13:11 AB [id number]) Subjective Physical Therapy Visit Type Type Initial Evaluation Visit Start Time 10:30 Visit Stop Time 11:20 Number of GANG 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 Visits 0 Physical Therapy Visit Comments Patient Comments agreeable to do PT Therapy Pain Assessment Pain When Pain Assessed During Mobility Pain Present Pain Present Pain Reported Location Bilateral Leg Scale Used pain scale not stated Pain Behaviors Calling Out,Facial Grimacing, Guarding,Moaning,Restlessness, Wincing Pain Management Techniques Distraction,Modification of Treatment,Re-positioning, Timing of Activity with Medications M4 PT-IP Mobility and Gait Start: 10/19/24 12:57 Freq: NEEDED Status: Active Protocol: Document 10/19/24 10:30 AB (Rec: 10/19/24 13:11 AB [id number]) PT-Bed Mobility Assessment Supine to Sit Supine to Sit Maximum Assistance,Total Assistance,2 Person Assistance ,Head of Bed Elevated,Bedrails Sit to Supine Sit to Supine Total Assistance,2 Person Assistance Scooting Scooting to Edge of Bed Dependent Scooting Up and Down in Bed Dependent PT-Transfer Assessment Comments Mobility Comments pt in bed and agreed to do PT. obtained PLOF and home set up . BP: 133/47. completed supine to sit max A/ total A x 3 and max cues. total A x 3 to scoot to EOB. pt with increase fear of falling and c/o pain even with slight movements especially when moving BLE. pt refused to stand. pt sat on EOB for a few minutes. Assisted to bed total A x 3 and max cues. positioned in bed. total A x 2 . pt needing brief change and pad change. assisted to side roll L<>R total A x 3 and max cues. positioned pt laterally tilted. call light and table placed within reach. PT-Balance Assessment Sitting Balance and Reactions Static Sitting Balance Ability Fair Dynamic Sitting Balance Ability Fair M5 PT-IP Objective Assessments Start: 10/19/24 12:57 Freq: NEEDED Status: Active Protocol: Document 10/19/24 10:30 AB (Rec: 10/19/24 13:11 AB [id number]) Orientation Orientation/Cognition Level of Alertness Alert Orientation Name,Place,Situation Language Function Ability No Deficits Noted Safety Awareness Decreased Safety Awareness Memory Description Short Term Impaired Gross Range of Motion Lower Extremity ROM Impairments increase BLE guarding in movement with c/o pain limiting ROM testing Strength Lower Extremity Strength Assessment Bilaterally Impaired Comments Strength Comments LLE: 2-/5 RLE: 3-/5 Muscle Tone Muscle Tone WNL Yes M6 PT-IP Treatment Start: 10/19/24 12:57 Freq: NEEDED Status: Active Protocol: Document 10/19/24 10:30 AB (Rec: 10/19/24 13:11 AB [id number]) Physical Therapy Treatment Education Education Provided Safety M7 PT-IP Assessment and Plan Start: 10/19/24 12:57 Freq: NEEDED Status: Active Protocol: Document 10/19/24 10:30 AB (Rec: 10/19/24 13:11 [id number]) PT Summary Assessment and Plan Potential Rehabilitation Potential Fair Status of Condition at Evaluation Evolving Summary Impairments Pain,ROM,Strength,Balance, Coordination,Sensation,Tone, Cognition,Bed Mobility, Transfers,Gait,Activity Tolerance Assessment Summary pt is a 74 y/o F who is admitted for CHF exacerbation and LLE cellulitis. pt requiring total A x 3 with mobility. Recommending mechanical lift transfer with nursing staff. pt will require SNF rehab to improve strength and mobility. Goals Bed Mobility Goal Moderate Assistance Transfer Goal Moderate Assistance,Front Wheeled Walker Gait Goal Moderate Assistance,Front Wheel Walker Gait Distance 25 Other Goals improve bed mobility, transfers, ambulation using fWW ~ 50 ft SBA Days to Meet Goals 10 Frequency of Treatment Frequency Of Treatment Once a Day Treatment Plan Physical Therapy Treatment Plan Bed Mobility Training,Transfer Training,Gait Training, Therapeutic Exercise,Balance Retraining,Discharge Planning, Hot or Cold Pack,Neuromuscular Re-ed,Coordination Retraining ,Manual Therapy Precautions Other Precautions falls Recommendations To Nursing Amount of Assist Needed Mechanical Lift Discharge Recommendations PT Discharge Recommendations SNF Rehab Transportation Needs at Discharge Wheelchair/Cabulance,Stretcher /Ambulance - PT assist 3
[2024-10-19] MEDS: ACETAMINOPHEN 325 MG TABLET 650 MG PO (11:30)
--- NOTE | 2024-10-19 11:35 | OT.IP.EVAL ---
Past Medical History (Last Reviewed 10/18/24 @ 22:57 by Mikayla Woodard DO) Morbid obesity Occupational Therapy Inpatient Evaluation/Re-Eval M1 PT/OT-IP Prior Functional Status Start: 10/19/24 11:44 Freq: NEEDED Status: Active Protocol: Document 10/19/24 11:44 [facility] (Rec: 10/19/24 12:00 [facility] [id number]) Medical Review Prior Functional Status Communication I Mobility and Gait Pt states use of bariatric FWW and mainly just walks from her lift chair to toilet and RT and handles. Activities of Daily Living and IADL's Pt states needs assist for LB dressing, and states just does the best she can for toileting an sponging off. Prior Functional Level (Other details) Pt states her daughter assist her to stand for the left chair at times by crossing and grabbing her hands to assist to stand. Social History Household Members spouse Living Arrangements House Number of Floors (Floors) One Floor Number of Stairs To Enter/Railing? Ramp to enter. Home Environment Tub/Shower,Ramp Home Equipment Front Wheel Walker,Straight Cane,Raised Toilet Seat w/ Armrests,Tub Transfer Bench, Shower Seat with Backrest, Gunner'S Mate G M2 OT-IP Current Condition Start: 10/19/24 11:44 Freq: Status: Active Protocol: Document 10/19/24 11:44 [facility] (Rec: 10/19/24 12:00 [facility] [id number]) Occupational Therapy Current Condition Current Condition Evaluation Date 10/19/24 Treatment Diagnosis Cellulitis, acute on chronic heart failure exacerbation M3 OT- IP Subjective and Pain Start: 10/19/24 11:44 Freq: Status: Active Protocol: Document 10/19/24 11:44 [facility] (Rec: 10/19/24 12:00 [facility] [id number]) OT- Subjective Occupational Therapy Visit Type Type Initial Evaluation Visit Start Time 10:50 Visit Stop Time 11:35 Occupational Therapy Visit Comments Patient Comments Pt needing lots of encouragement and cues to try to get up to the edge of the bed. Patient/Caregiver Goals TO go home. OT Pain Assessment Pain When Pain Assessed At Rest Pain Present Pain Present Pain Reported Location Bilateral Leg Intensity 4 Scale Used Numeric (0 - 10) M4 OT- IP ADL's Start: 10/19/24 11:44 Freq: Status: Active Protocol: Document 10/19/24 11:44 [facility] (Rec: 10/19/24 12:00 [facility] [id number]) OT MHD-Qgme-Sotodmg Comments OT Self-Feeding Comments NOt at meal time. OT ADL-Grooming General Evaluation Areas Needing Assistance Retrieving/Set-up of Grooming Items Comments OT Grooming Comments Set -up whiel in bed. OT ADL-Oral Care General Eval Oral Care Ability Standby Assistance Areas of Assistance Retrieving/Set-Up of Items Comments Oral Care Comments Set-up while in bed. OT ADL-Dressing General Eval Lower Body Dressing Ability Total Assistance Areas Needing Assistance Underpants/Brief,Socks Comments OT Dressing Comments Toilet assist at this time. OT ADL-Toileting General Evaluation Toileting Ability Total Assistance Areas Needing Assistance Manage Clothing,Perform Perineal Hygiene Comments OT Toileting Comments Total assist to roll side to side with 2-3 person assist. Pt is very afraid of falling. OT ADL-Bathing Comments OT Bathing Comments Sponge bath more appropriate at this time. M5 OT- IP IADL's Start: 10/19/24 11:44 Freq: Status: Active Protocol: Document 10/19/24 11:44 [facility] (Rec: 10/19/24 12:00 [facility] [id number]) OT-Instrumental Activities of Daily Living Medication Management Medication Management Comments Per pt , her daughter assists with pill management needs via organizer. Money Management Money Management Caregiver Provides Assistance M6 OT- IP Functional Cognition Start: 10/19/24 11:44 Freq: Status: Active Protocol: Document 10/19/24 11:44 [facility] (Rec: 10/19/24 12:00 [facility] [id number]) Cognitive Factors Limiting Selfcare Function Cognitive Ability Level of Alertness Alert Patient Orientation Name,Place,Situation Attention Span Ability Capable of Focused Attention, Capable of Sustained Attention Ability to Follow Commands Able to Follow One Step Commands with Increased Time, Able to Follow One Step Commands with Repetition Cognitive Comments Cognitive Assessment Comments Pt very fearful of falling. Pt needing cues to relax and encouragement to try to get up . Pt may benefit from formal cognitive assessment. OT- Vision and Hearing OT- Hearing Assessment OT- Hearing Assessment WFL OT- Vision Assessment Visual Acuity Glasses For Reading Visual Attentiveness WFL Occular Pursuits WFL M7 OT- IP Mobility and Balance Start: 10/19/24 11:44 Freq: Status: Active Protocol: Document 10/19/24 11:44 [facility] (Rec: 10/19/24 12:00 [facility] [id number]) OT- Bed Mobility Assessment Supine to Sit Supine to Sit Assist Total Assistance,1 Person Assistance,2 Person Assistance ,Head of Bed Elevated,Bedrails Sit to Supine Sit to Supine Assist Total Assistance,1 Person Assistance,2 Person Assistance ,Head of Bed Elevated,Bedrails Scooting Scooting to Edge of Bed Total Assistance,2 Person Assistance OT-Transfer Assessment Comments Mobility Comments Total assist of 3 and use of pads to help lift her legs to the edge of the bed. Pt able to assist minimally with her right arm to get her trunk to the left with MODAx1 and use of bed rail. Total A x3 for bed mobility needs and use of adjustable bed to assist with positioning needs. Trapeze bar placed so pt able to use to help with Rue strengthening, endurance , and positioning in the bed. OT- Balance Assessment Sitting Balance and Reactions Static Sitting Balance Ability Good Dynamic Sitting Balance Ability Fair M8 OT- IP Objective Assessments Start: 10/19/24 11:44 Freq: Status: Active Protocol: Document 10/19/24 11:44 [facility] (Rec: 10/19/24 12:00 [facility] [id number]) OT Gross Range of Motion Upper Extremity Range of Motion Assessment Left Impaired OT Strength Upper Extremity Strength Assessment Left Impaired Comments Strength Comments LUE 3-/5 to 4-/5 RUE 4+/5 OT Sensation Assessment Edema Edema Present Edema Comments BLE due to cellulitis M9 OT- IP Assessment and Plan Start: 10/19/24 11:44 Freq: Status: Active Protocol: Document 10/19/24 11:44 [facility] (Rec: 10/19/24 12:00 [facility] [id number]) OT Summary Assessment and Plan Potential Rehabilitation Potential Fair Analytic Complexity at Evaluation Moderate Summary OT Impairments Pain,Range of Motion,Strength, Balance,Functional Cognition, Functional Mobility,Self- Feeding,Grooming,Dressing, Toileting,Bathing,Toilet Transfers,Shower Transfers, Activity Tolerance Progress Towards Goals Slow Progress due to Pain,Slow Progress due to Medical Issues,Slow Progress due to Activity Tolerance,Slow Progress due to Cognition Assessment Summary Pt MOD complexity and main barriers are pain, inability to move her BLE due to swelling from cellulitis and heart failure exacerbation and now needing total assist x3 to from supine<>Sit. Pt will benefit from skilled rehab when medically stable. After skilled rehab pt may need increased assist for her family especially for dressing ,toileting, and showering needs in assist to IADL needs Goals Self-Feeding Goal Independent Grooming Goal Independent Dressing Goal Moderate Assistance Toileting Goal Minimal Assistance Bathing Goal Moderate Assistance Toilet Transfer Goal Moderate Assistance Shower Transfer Goal Moderate Assistance Days to Meet Goals 30 Frequency of Treatment Other frequency 3-5x/week Treatment Plan OT Treatment Plan ADL Training,Functional Cognition Training,Functional Mobility,Patient/Family Education,Discharge Planning Other Treatment Recommendations and Next SLUMS Treatment Focus Discharge Recommendations OT Discharge Recommendations SNF Rehab Transportation Needs at Discharge Stretcher/Ambulance
[2024-10-19] MEDS: NYSTATIN POWDER 15GM 1 APPLIC TOP ×2 (11:38→21:09)
--- NOTE | 2024-10-19 12:42 | CM.DANOTE ---
Addendum entered by CATERINA Quarles 10/19/24 13:19: Per PT, pt is being recommended for SNF Rehab, she is currently a [facility]PA and [facility]. When discussed discharge plans with pt earlier, there was preference for dc home as soon as medically cleared. Per hospitalist, orders were placed to switch to INPT for cellulitus/CHF. DCP provided Medicare Choice List to patient, pending preferences. JAMES Toussaint Original Note: DCP Assessment Note: Pt is a 74yo female, resident of [place], is admitted for weakness, cellulitis, CHF. Pt lives in a house wwith her and youngest daughter. Pt's Primary Care Provider is Dulce Wellington PA-C and insurance is Medicare and [employer] (Inspect Manager). Reviewed chart and discussed with multidisciplinary team pt's medical status and initial discharge needs. Per hospitalist, pt might stay for continued diuresis or discharge home today pending progress. DCP met w/patient at bedside; introduced self and role. Present in the room is pt's daughter, Mayra, who does not live with patient. Patient was found in bed, alert and oriented, cooperative with assessment. Pt confirmed living situation and good support in . Pt expressed preference in discharge home, declined any need for referrals in the community at this time. Pt states she is hoping to speak with hospitalist when available about discharge plans. Plan: Anticipating dc home with family (most likely daughters to transport) when medically cleared. CM team will follow closely for coordination of discharge plans. JAMES Toussaint Discharge Planning/Care Management CM Discharge Assessment Start: 10/19/24 12:41 Freq: Status: Active Protocol: Document 10/19/24 12:41 MW (Rec: 10/19/24 12:42 MW [id number]) Discharge Planning Assessment Assigned Front Desk Agent CATERINA Sales DPOA/Assigned Designee Name Prosper Valenzuela Jr, Spouse Contact Information [phone] Advance Directives? No History Provided By Patient,Family Member,Medical Record Has Patient been admitted in last 30 No days? Prior Living Arrangements [facility] Household Members spouse,children Type of transporation used prior to Relies on Others admit Independent with ADL's Yes Is patient alert and oriented? Yes Caregiver for Another No Discharge Plan Home Referrals Initiated None needed Whiteboard Updated in Patient Room with Yes name and ext. # of Front Desk Agent Comment [phone] Review Status In Process Please Provide Date Initial DC 10/19/24 Assessment Was Performed Next Review Type Continued Stay Review
--- NOTE | 2024-10-19 18:15 | P.HP_ITS ---
History of Present Illness History of Present Illness Date Patient Seen: 10/19/24 Time Patient Seen: 12:30 Chief complaint: increases weakness and BLE edema, cellulitis Narrative: Per overnight provider, 74-year-old female with past medical history of asthma, hypertension, hyperlipidemia, CHF, stroke on Plavix and hypertension presents with complaint of increased bilateral lower extremity edema and concern for bilateral leg cellulitis. Per the patient's report, the patient does have a history of stasis dermatitis. The patient was having increased weakness due to her increased leg swelling over the last few weeks. The patient states that she used to take Lasix but has not taken it for unclear reason lately. The patient was ambulating back from the bathroom and felt weak as her leg was very heavy due to swelling and the patient almost fell but did not actually fall. The patient also noted that over the last few days her lower extremity has started increased erythema and with some pain. Otherwise the patient should denies any fever, chills, nausea, vomiting or diarrhea. The patient denies any chest pain or shortness of breath. The patient admits that she does have some weeping of fluid from her legs and especially in her left leg. In the emergency room, the patient was hemodynamically stable and was saturating well on room air. Labs shows a hemoglobin of 8.6 potassium 5.7 troponin of 0.01 and a BNP of 453. UA was negative for UTI. The patient was given IV Lasix as well as IV clindamycin. Chest x-ray did show signs of CHF. Interval history: patient has no dyspnea, though massive leg edema bilaterally. Her legs are sore and she has had difficulty ambulating. [facility] Medical History Morbid obesity Social History household members: spouse and children Smoking Status: Former smoker alcohol intake: current Meds Home Medications and Allergies Home Medications Medication Instructions Recorded Confirmed Type albuterol sulfate 90 mcg/actuation 2 puff INH Q4HP PRN Shortness Of 04/26/13 07/26/22 History aerosol inhaler (Ventolin HFA) Breath #0 puffs oxybutynin chloride 15 mg 15 mg PO BID ##0 04/26/13 11/30/21 History tablet,extended release 24 hr amlodipine 5 mg tablet (Norvasc) 10 mg PO DAILY ##0 05/02/17 07/26/22 History atorvastatin 80 mg tablet 80 mg PO BEDTIME ##0 05/02/17 07/26/22 History clopidogrel 75 mg tablet 75 mg PO DAILY 10/30/18 07/26/22 History losartan 100 mg tablet 100 mg PO DAILY 10/30/18 11/30/21 History benzonatate 200 mg capsule 200 mg PO BID PRN cough #20 caps 11/30/21 Rx fluticasone 250 mcg-salmeterol 50 1 inh inhalation BID 11/30/21 11/30/21 History mcg/dose blistr powdr for inhalation (Advair Diskus) lidocaine 5 % topical patch 1 patch topical DAILY #15 ea 11/30/21 07/26/22 Rx (Lidoderm) tramadol 50 mg tablet 50 mg PO TID PRN pain #20 tabs 11/30/21 07/26/22 Rx furosemide 20 mg tablet (Lasix) 20 mg PO DAILY #7 tabs 04/23/23 Rx hydrocodone 5 mg-acetaminophen 325 1 tab PO Q6H PRN pain #10 tabs 05/18/23 Rx mg tablet tramadol 50 mg tablet 50 mg PO Q8H PRN pain #14 tabs 05/18/23 Rx furosemide 20 mg tablet (Lasix) 20 mg PO DAILY #30 tabs 01/29/24 Rx atorvastatin 80 mg tablet 80 mg PO DAILY 10/19/24 10/19/24 History Allergies Allergy/AdvReac Type Severity Reaction Status Date / Time adhesive [ADHESIVE] Allergy Severe WATER Verified 05/22/23 14:56 BLISTERS *PAPER/SILK TAPE OK* chicken derived Allergy Severe DIARRHEA, Verified 05/22/23 14:56 [CHICKEN DERIVED] VOMITING, STOMACH CRAMPS Review of Systems Review of Systems Narrative: All other systems reviewed with the patient and are negative unless otherwise stated. Exam Vital Signs (past 8 hours): - 10/19/24 14:00 10/19/24 14:16 Temperature 98.1 F Pulse Rate 76 Respiratory Rate 16 Blood Pressure 93/31 L 115/48 L Pulse Oximetry 91 Oxygen Flow Rate 0 Oxygen Delivery Method Room Air Oxygen Flow Rate 0 Narrative Exam Narrative: GENERAL: The patient is not in any acute distressed. Awake and alert. HEENT: Nonicteric sclerae, PERRLA, EOMI. Oropharynx clear. Moist mucous membranes. Conjunctivae appear well perfused. HEART: Regular rate and rhythm without murmurs. 1+ lower extremities edema. LUNGS: Clear to auscultation bilaterally. No wheezing, crackles or rhonchi ABDOMEN: Soft, positive bowel sounds, nontender. SKIN: Bilateral stasis dermatitis and signs of cellulitis (warmth, tenderness, and intermixed erythema within bullae) with some sclaling in both LEs. Otherwise No rash, no excessive bruising, petechiae, or purpura. NEUROLOGIC: AxO x 3. Cranial nerves II-XII intact without motor/sensory deficit. Objective ECG Impression: Atrial fibrillation with controlled ventricular response, Labs 10/19/24 06:38 10/19/24 05:00 Labs: Laboratory Results - last 24 hr 10/18/24 10/19/24 10/19/24 23:14 00:15 05:00 WBC 8.1 RBC 3.24 L Hgb 8.6 L Hct 26.2 L MCV 80.7 MCH 26.5 MCHC 32.9 RDW 18.0 H Plt Count 211 Neut % (Auto) 74.2 Lymph % (Auto) 12.2 L [place] % (Auto) 11.7 Eos % (Auto) 1.3 L Baso % (Auto) 0.6 Neut # (Auto) 6000 Lymph # (Auto) 1000 L [place] # (Auto) 900 Eos # (Auto) 100 Baso # (Auto) 0 PT 13.3 H INR 1.2 APTT 22 L Sodium 137 137 Potassium 5.7 H 4.6 Chloride 105 105 Carbon Dioxide 23 24 BUN 33 H 32 H Creatinine 0.95 0.99 Estimated GFR > 60 59 L BUN/Creatinine Ratio 34.7 H 32.3 H Glucose 107 108 Calcium 8.6 8.9 Total Bilirubin 1.0 AST 102 H ALT 55 H Alkaline Phosphatase 113 Total Creatine Kinase 30 Troponin I 0.018 NT-Pro-B Natriuret Pep 453 H Total Protein 9.2 H Albumin 3.7 Globulin 5.5 H Albumin/Globulin Ratio 0.7 L Lipase 227 Urine Color Yellow Urine Appearance Clear Urine pH 6.0 Ur Specific [place] 1.015 Urine Protein Negative Urine Glucose (UA) Negative Urine Ketones Negative Urine Occult Blood Negative Urine Nitrate Positive H Urine Bilirubin Negative Urine Urobilinogen 1.0 Ur Leukocyte Esterase Trace H Urine RBC None seen Urine WBC 0-1/hpf Ur Squamous Epith Cells 0-1 /hpf Urine Bacteria Moderate (10-30) H Ur Culture Indicated? Specimen cultured Vol Urine Centrifuged 10ml (spun) 10/19/24 06:38 WBC 6.6 RBC 3.09 L Hgb 8.2 L Hct 25.1 L MCV 81.3 MCH 26.4 MCHC 32.5 RDW 18.3 H Plt Count 225 Neut % (Auto) 72.5 Lymph % (Auto) 11.1 L [place] % (Auto) 13.9 Eos % (Auto) 1.9 L Baso % (Auto) 0.6 Neut # (Auto) 4800 Lymph # (Auto) 700 L [place] # (Auto) 900 Eos # (Auto) 100 Baso # (Auto) 0 PT INR APTT Sodium Potassium Chloride Carbon Dioxide BUN Creatinine Estimated GFR BUN/Creatinine Ratio Glucose Calcium Total Bilirubin AST ALT Alkaline Phosphatase Total Creatine Kinase Troponin I NT-Pro-B Natriuret Pep Total Protein Albumin Globulin Albumin/Globulin Ratio Lipase Urine Color Urine Appearance Urine pH Ur Specific [place] Urine Protein Urine Glucose (UA) Urine Ketones Urine Occult Blood Urine Nitrate Urine Bilirubin Urine Urobilinogen Ur Leukocyte Esterase Urine RBC Urine WBC Ur Squamous Epith Cells Urine Bacteria Ur Culture Indicated? Vol Urine Centrifuged Assessment & Plan Assessment & Plan narrative: Bilateral lower extremity cellulitis, acute, POA - Started on clindamycin by admitting provider, her cellulitis appears improved this morning and she appears to be tolerating, so will leave at this time. - secondary to massive venous stasis. Acute on chronic heart failure exacerbation. - continue diuresis with 40 mg IV q8. - TTE ordered New diagnosis atrial fibrillation - ? new diagnosis, I see no mention of it previously. Admitting EKG showed atrial fibrillation - continue tele - TTE ordered as above - currently rate controlled. - already on asa/plavix, consider either switch to DOAC or addition of as asa/plavix is for secondary prevention after previous CVA. Hypertension. - holding home medications in favor of diuretics currently. Normotensive today. Hyperlipidemia. - continue home statin 80 mg Chronic pain. - continue norco COPD, chronic, without exacerbation - continue formulary nebulizers to replace home advair Hx of CVA - on asa/plavix and statin as above Code: Full, surrogate is patient's daughter DVT: HSQ I have utilized all available immediate resources to obtain, update, or review the patient's current medications. Dispo: patient admitted under inpatient status. Likely discharge to SNF after additional diuresis. Likely in the hospital for 3-4 days. Additional history obtained via discussions with the overnight hospitalist. These discussions contributed to the creation of the above assessment and plan. I have reviewed patient's presenting documentation, labs, and imaging personally. Time-Based Coding :: [TOTAL MINUTES] spent with patient and on the chart (including review of chart, obtaining history, exam, reviewing outside data, placing orders, documenting exam and treatment plan, and counseling patient) on [DATE].
--- NOTE | 2024-10-19 18:20 | DI.ECHO.S_ITS ---
[facility] +---------+ [facility] : : [address] : : [place] : : [id number] : : Phone: [phone] Echocardiogram Report + + :Name: TODD EDDY Study Date: 10/20/2024 Height: 64 in : :Hospital ReadingLocation: Weight: 330 lb : : Gender: Female BSA: 2.4 m2 : :: 1950 Age: 74 yrs BP: 118/49 mmHg: :Reason For Study: CHF, A FIB : :Ordering Physician: HILLARY, : :DEANA CHANG Performed By: Aravind Gomez : :Referring: DEANA THORNTON : + + Interpretation Summary Technically difficult study. 1) Normal left ventricular size and thickness with low normal systolic function (EF 50-55%). 2) Moderately enlarged right ventricle with mildly reduced function. 3) There is mild aortic stenosis (valve area 1.7cm2, mean gradient 12mmHg). 4) The right ventricular systolic pressure is estimated to be at least 50 mmHg based on an estimated right atrial pressure of 15 mm Hg. 5) Compared to the echo done 04/19/2015, mild aortic stenosis and pulmonary hypertension are present on this study Procedure: A two-dimensional transthoracic echocardiogram with color flow and Doppler was performed. A contrast injection of Definity was performed to improve assessment of LV function. The study quality was technically difficult. Comparison is made with the echocardiogram of 04/19/2015. The patient was in atrial fibrillation with heart rates between 89-117 bpm during the exam. Left Ventricle: The left ventricle is normal in size. There is normal left ventricular wall thickness. The ejection fraction is estimated to be 50-55%. There are no focal wall motion abnormalities. Diastolic function could not be accurately assessed due to atrial fibrillation. Right Ventricle: The right ventricle is not well visualized. The right ventricle is moderately dilated. Right ventricular systolic function is mildly reduced. Atria: The left atrium is moderately dilated. The right atrium is normal in size. There is no Doppler evidence for an interatrial shunt. Mitral Valve: There is mild to moderate mitral annular calcification. The mitral valve leaflets appear mildly thickened, but open well. There is trace mitral regurgitation. Aortic Valve: The aortic valve is trileaflet. The aortic valve is mildly calcified. There is mild aortic stenosis. The peak aortic velocity is 2.2 m/sec. The aortic valve mean gradient is 11.9 mmHg. The calculated aortic valve area is 1.7 cm2. No aortic regurgitation is present. Tricuspid Valve: The tricuspid valve is not well visualized. There is mild tricuspid regurgitation. The right ventricular systolic pressure is estimated to be at least 50 mmHg based on an estimated right atrial pressure of 15 mm Hg. Pulmonic Valve: The pulmonic valve is not well visualized. There is no pulmonic valvular regurgitation. Great Vessels: The aortic root is normal size. The ascending aorta could not be visualized. The pulmonary artery is normal size. The IVC is dilated (diameter is greater than 2.1 cm) and it collapses less than 50% with a sniff. This suggests a high right atrial pressure of 15 mm Hg. Pericardium/ Pleura There is no pericardial effusion. There is no pleural effusion. MMode/2D Measurements & Calculations LVIDd: 5.5 cm LVOT diam: 1.9 cm LVIDs: 4.1 cm Ao root diam: 2.9 cm FS: 26.5 % EPSS: 0.97 cm IVSd: 0.96 cm LVPWd: 0.94 cm LV boyle. diameter/BSA (cm/m^2): 2.3 LV sys. diameter/BSA (cm/m^2): 1.7 LA A2 area: 34.3 cm2 RA long axis: 5.1 cm LA A4 area: 22.2 cm2 RA area: 19.2 cm2 LA length (vol): 6.1 cm RA vol: 61.6 ml LA vol: 106.4 ml RA : 25.5 ml/m2 LA vol index: 44.0 ml/m2 IVC diam: 3.2 cm Doppler Measurements & Calculations Ao V2 max: 221.5 cm/sec LVOT Max Juven[place]: 110.2 cm/sec Ao V2 mean: 164.0 cm/sec LV V1 max P.9 mmHg Ao max P.6 mmHg LV V1 VTI: 27.1 cm Ao mean P.9 mmHg JUAN(I,D): 1.7 cm2 Ao V2 VTI: 43.7 cm JUAN(V,D): 1.4 cm2 sev ratio: 0.62 JUAN indexed to BSA (cm^2/m^2): 0.72 MV E max juvenal: 147.9 cm/sec TR max juvenal: 297.2 cm/sec MV A max juvenal: 80.8 cm/sec TR max P.3 mmHg MV E/A: 1.8 PA V2 max: 122.2 cm/sec Med Peak E' Juvenal: 7.1 cm/sec PA V2 mean: 93.5 cm/sec E/E' med: 21.0 PA mean P.8 mmHg Lat Peak E' Juvenal: 7.3 cm/sec PA pr(Accel): 25.9 mmHg E/E' lat: 20.2 E/e' average: 20.6 MV dec time: 0.20 sec SV(LVOT): 75.8 ml Reading Physician:11:07 AM
[2024-10-19] MEDS: ATORVASTATIN 20 MG TABLET 80 MG PO (21:03)
[2024-10-20] VITALS (8 sets, daily range): BP systolic 108–133; BP diastolic 42–55; PULSE 91–104; RESP 15–24; TEMP 36.6–37; O2SAT 90–95
[2024-10-20] MEDS: SODIUM CHLORIDE 0.9% FLUSH 10 ML IV ×3 (00:28→20:27)
[2024-10-20] MEDS: FUROSEMIDE 40 MG/4 ML VIAL IV ×3 (00:29→17:06)
[2024-10-20] MEDS: CLINDAMYCIN 900 MG/50 ML PIGGYBACK 50 MG IV ×2 (00:30→08:04)
--- NOTE | 2024-10-20 06:38 | PC.NURSE ---
Mouth breathing while asleep, SPO2 78-87 % in room air. 2 liters/NC of O2 placed SPO2 94-98%. She's awake now 02 off & sat. 93%. Denies & declined any pain medication all shift, will coninue plan of care & monitor.
[2024-10-20] MEDS: PANTOPRAZOLE DR 40 MG TABLET PO (06:44)
[2024-10-20] MEDS: CLOPIDOGREL 75 MG TABLET PO (08:03)
[2024-10-20] MEDS: HEPARIN 5,000 UNIT/ML VIAL 5000 UNIT SUBCUT (08:04)
--- NOTE | 2024-10-20 11:28 | P.PN_ITS ---
Subjective Subjective Date Patient Seen: 10/20/24 Time Patient Seen: 08:53 Interval history: Narrative: 74-year-old female with past medical history of asthma, hypertension, hyperlipidemia, CHF, stroke on Plavix and hypertension presents with complaint of increased bilateral lower extremity edema and concern for bilateral leg cellulitis. Per the patient's report, the patient does have a history of stasis dermatitis. The patient was having increased weakness due to her increased leg swelling over the last few weeks. The patient states that she used to take Lasix but has not taken it for unclear reason lately. The patient was ambulating back from the bathroom and felt weak as her leg was very heavy due to swelling and the patient almost fell but did not actually fall. The patient also noted that over the last few days her lower extremity has started increased erythema and with some pain. Otherwise the patient should denies any fever, chills, nausea, vomiting or diarrhea. The patient denies any chest pain or shortness of breath. The patient admits that she does have some weeping of fluid from her legs and especially in her left leg. In the emergency room, the patient was hemodynamically stable and was saturating well on room air. Labs shows a hemoglobin of 8.6 potassium 5.7 troponin of 0.01 and a BNP of 453. UA was negative for UTI. The patient was given IV Lasix as well as IV clindamycin. Chest x-ray did show signs of CHF. 4/4: The patient has no dyspnea, though massive leg edema bilaterally. Her legs are sore and she has had difficulty ambulating. 4/5: Patient feels leg swelling and redness has gone down with diuretics and antibiotics Exam Vital Signs (past 8 hours): - 10/20/24 04:00 10/20/24 08:00 Temperature 97.8 F 98.1 F Pulse Rate 99 H 91 H Respiratory Rate 24 15 Blood Pressure 108/50 L 118/49 L Pulse Oximetry 95 93 Oxygen Flow Rate 0 0 Oxygen Delivery Method Room Air Oxygen Flow Rate 0 Narrative Exam Narrative: GENERAL: The patient is not in any acute distressed. Awake and alert. HEENT: Nonicteric sclerae, PERRLA, EOMI. Oropharynx clear. Moist mucous membranes. Conjunctivae appear well perfused. HEART: Regular rate and rhythm without murmurs. LUNGS: Clear to auscultation bilaterally. ABDOMEN: Soft, positive bowel sounds, nontender. EXTREMITIES: 1-2+ edema. SKIN: Bilateral stasis dermatitis with warmth, tenderness, and intermixed erythema within bullae with extensive scaling in both LEs. NEUROLOGIC: AxO x 3. Cranial nerves II-XII intact without motor/sensory deficit. Objective ECG Impression: Atrial fibrillation with controlled ventricular response, Imaging *: Radiologist's impression: 1. Chest xray 10/18/2024: Cardiomegaly congestion of central vessels suggesting CHF and/or volume overload. No significant pleural effusion or focal alveolar opacity. 2. Echocardiogram 10/19/2024: Technically difficult study. The patient was in atrial fibrillation with heart rates between 89-117 bpm during the exam. 1) Normal left ventricular size and thickness with low normal systolic function (EF 50-55%). 2) Moderately enlarged right ventricle with mildly reduced function. 3) There is mild aortic stenosis (valve area 1.7cm2, mean gradient 12mmHg). 4) The right ventricular systolic pressure is estimated to be at least 50 mmHg based on an estimated right atrial pressure of 15 mm Hg. 5) Compared to the echo done 04/19/2015, mild aortic stenosis and pulmonary hypertension are present on this study Labs 10/19/24 06:38 10/19/24 05:00 Labs: Laboratory Results - last 24 hr 10/18/24 10/19/24 10/19/24 23:14 00:15 05:00 WBC 8.1 RBC 3.24 L Hgb 8.6 L Hct 26.2 L MCV 80.7 MCH 26.5 MCHC 32.9 RDW 18.0 H Plt Count 211 Neut % (Auto) 74.2 Lymph % (Auto) 12.2 L [place] % (Auto) 11.7 Eos % (Auto) 1.3 L Baso % (Auto) 0.6 Neut # (Auto) 6000 Lymph # (Auto) 1000 L [place] # (Auto) 900 Eos # (Auto) 100 Baso # (Auto) 0 PT 13.3 H INR 1.2 APTT 22 L Sodium 137 137 Potassium 5.7 H 4.6 Chloride 105 105 Carbon Dioxide 23 24 BUN 33 H 32 H Creatinine 0.95 0.99 Estimated GFR > 60 59 L BUN/Creatinine Ratio 34.7 H 32.3 H Glucose 107 108 Calcium 8.6 8.9 Total Bilirubin 1.0 AST 102 H ALT 55 H Alkaline Phosphatase 113 Total Creatine Kinase 30 Troponin I 0.018 NT-Pro-B Natriuret Pep 453 H Total Protein 9.2 H Albumin 3.7 Globulin 5.5 H Albumin/Globulin Ratio 0.7 L Lipase 227 Urine Color Yellow Urine Appearance Clear Urine pH 6.0 Ur Specific [place] 1.015 Urine Protein Negative Urine Glucose (UA) Negative Urine Ketones Negative Urine Occult Blood Negative Urine Nitrate Positive H Urine Bilirubin Negative Urine Urobilinogen 1.0 Ur Leukocyte Esterase Trace H Urine RBC None seen Urine WBC 0-1/hpf Ur Squamous Epith Cells 0-1 /hpf Urine Bacteria Moderate (10-30) H Ur Culture Indicated? Specimen cultured Vol Urine Centrifuged 10ml (spun) 10/19/24 06:38 WBC 6.6 RBC 3.09 L Hgb 8.2 L Hct 25.1 L MCV 81.3 MCH 26.4 MCHC 32.5 RDW 18.3 H Plt Count 225 Neut % (Auto) 72.5 Lymph % (Auto) 11.1 L [place] % (Auto) 13.9 Eos % (Auto) 1.9 L Baso % (Auto) 0.6 Neut # (Auto) 4800 Lymph # (Auto) 700 L [place] # (Auto) 900 Eos # (Auto) 100 Baso # (Auto) 0 PT INR APTT Sodium Potassium Chloride Carbon Dioxide BUN Creatinine Estimated GFR BUN/Creatinine Ratio Glucose Calcium Total Bilirubin AST ALT Alkaline Phosphatase Total Creatine Kinase Troponin I NT-Pro-B Natriuret Pep Total Protein Albumin Globulin Albumin/Globulin Ratio Lipase Urine Color Urine Appearance Urine pH Ur Specific [place] Urine Protein Urine Glucose (UA) Urine Ketones Urine Occult Blood Urine Nitrate Urine Bilirubin Urine Urobilinogen Ur Leukocyte Esterase Urine RBC Urine WBC Ur Squamous Epith Cells Urine Bacteria Ur Culture Indicated? Vol Urine Centrifuged [facility] Medical History Morbid obesity Social History household members: spouse and children Smoking Status: Former smoker alcohol intake: current Assessment & Plan Assessment & Plan narrative: Bilateral lower extremity cellulitis, acute, POA - improving, continue IV clindamycin - secondary to venous insufficiency. - consult wound care Sunday 10/22 Acute on chronic heart failure exacerbation. - continue diuresis with furosemide 40 mg IV q8. - TTE unremarkable except new finding of atrial fibrillation. New diagnosis atrial fibrillation - ? new diagnosis, I see no mention of it previously. Admitting EKG showed atrial fibrillation - continue tele - TTE unremarkable. - currently rate controlled. - CHADS2-VASC score = 7 (11.2% per year stroke risk, 15.7% thromboembolism risk) - add Eliquis, continue clopidogrel, stop aspirin Hypertension. - holding home medications in favor of diuretics currently. Normotensive today. Hyperlipidemia. - continue home statin 80 mg Chronic pain. - continue norco COPD, chronic, without exacerbation - continue formulary nebulizers to replace home advair Hx of CVA - on clopidogrel and statin as above, aspirin stopped and Eliquis added for atrial fibrillation Code: Full, surrogate is patient's daughter DVT: Eliquis Dispo: patient admitted under inpatient status. Likely discharge to SNF after additional diuresis. Likely in the hospital for 3-4 days. [employer] Document charge(s): No Charge Codes Subsequent inpatient/observation care: [id number]
--- NOTE | 2024-10-20 11:45 | PT.IPTN ---
Current Diagnoses Heart failure, unspecified (10/19/24) Physical Therapy Treatment Note M2 PT-IP Current Condition Start: 10/19/24 12:57 Freq: NEEDED Status: Active Protocol: Document 10/19/24 10:30 AB (Rec: 10/19/24 13:11 AB [id number]) Physical Therapy Current Condition Current Condition Evaluation Date 10/19/24 Treatment Diagnosis CHF exacerbation; LLE cellulitis; difficulty in walking Onset Date 10/19/24 M3 PT-IP Subjective Start: 10/19/24 12:57 Freq: NEEDED Status: Active Protocol: Document 10/20/24 11:45 AB (Rec: 10/20/24 13:31 AB [id number]) Subjective Physical Therapy Visit Type Type Treatment Note Visit Start Time 11:45 Visit Stop Time 12:10 Number of MONUMENT CARVER Visits 0 Therapy Pain Assessment Pain When Pain Assessed At Rest Pain Present Pain Present Pain Reported Location Bilateral Leg Scale Used painn scale not stated Pain Behaviors Calling Out,Guarding,Wincing Pain Management Techniques Distraction,Modification of Treatment,Re-positioning, Timing of Activity with Medications M4 PT-IP Mobility and Gait Start: 10/19/24 12:57 Freq: NEEDED Status: Active Protocol: Document 10/20/24 11:45 AB (Rec: 10/20/24 13:31 AB [id number]) PT-Bed Mobility Assessment Rolling Type of Rolling Bilateral Level of Assist Maximal Assistance,2 Person Assistance Supine to Sit Supine to Sit Total Assistance,2 Person Assistance,Bedrails Sit to Supine Sit to Supine Total Assistance,2 Person Assistance,Bedrails Scooting Scooting to Edge of Bed Dependent Scooting Up and Down in Bed Dependent PT-Transfer Assessment Comments Mobility Comments pt in bed and agreed to do PT. supine to sit max A x 2 with HOB elevated and use of trapeze/bedrail. c/o increase pain on BLE even with light touch. total A x 3 to scoot to EOB. c/o increase LE pain and refuses further activities . encouarged pt to sit up and move more but pt refused. stated that she had enough for right now and wants to lay back in bed. assisted pt to supine total A x 3 and max cues. positioned pt in bed total A x 3-4 and max cues. Rolling L<>R for brief and pad positioning. pt screaming with mobility. cued for deep breathing and to calm down. call light and table placed within reach. M5 PT-IP Objective Assessments Start: 10/19/24 12:57 Freq: NEEDED Status: Active Protocol: Document 10/19/24 10:30 AB (Rec: 10/19/24 13:11 AB [id number]) Orientation Orientation/Cognition Level of Alertness Alert Orientation Name,Place,Situation Language Function Ability No Deficits Noted Safety Awareness Decreased Safety Awareness Memory Description Short Term Impaired Gross Range of Motion Lower Extremity ROM Impairments increase BLE guarding in movement with c/o pain limiting ROM testing Strength Lower Extremity Strength Assessment Bilaterally Impaired Comments Strength Comments LLE: 2-/5 RLE: 3-/5 Muscle Tone Muscle Tone WNL Yes M6 PT-IP Treatment Start: 10/19/24 12:57 Freq: NEEDED Status: Active Protocol: Document 10/20/24 11:45 AB (Rec: 10/20/24 13:31 AB [id number]) Physical Therapy Treatment Education Education Provided Safety M7 PT-IP Assessment and Plan Start: 10/19/24 12:57 Freq: NEEDED Status: Active Protocol: Document 10/20/24 11:45 AB (Rec: 10/20/24 13:31 AB [id number]) PT Summary Assessment and Plan Potential Rehabilitation Potential Fair Summary Impairments Pain,ROM,Strength,Balance, Coordination,Sensation,Tone, Cognition,Bed Mobility, Transfers,Gait,Activity Tolerance Progress Towards Goals Slow Progress due to Pain,Slow Progress due to Medical Issues,Slow Progress - Other Assessment Summary pt continues to c/o BLE pain with R>L pain with screaming even to light touch. pt requiring total A x 3-4 with mobility and has not been participating much with activities due to c/o increase pain. pt will require SNF rehab to improve mobility. Goals Bed Mobility Goal Moderate Assistance Transfer Goal Moderate Assistance,Front Wheeled Walker Gait Goal Moderate Assistance,Front Wheel Walker Gait Distance 25 Other Goals improve bed mobility, transfers, ambulation using fWW ~ 50 ft SBA Days to Meet Goals 10 Frequency of Treatment Frequency Of Treatment Once a Day Treatment Plan Physical Therapy Treatment Plan Bed Mobility Training,Transfer Training,Gait Training, Therapeutic Exercise,Balance Retraining,Discharge Planning, Hot or Cold Pack,Neuromuscular Re-ed,Coordination Retraining ,Manual Therapy Precautions Other Precautions falls Recommendations To Nursing Amount of Assist Needed Mechanical Lift Discharge Recommendations PT Discharge Recommendations SNF Rehab Transportation Needs at Discharge Stretcher/Ambulance - PT assist 3-4
--- NOTE | 2024-10-20 12:17 | CM.DPC ---
DCP SNF Planning: Per MD and PT, pt still requiring SNF at d/c and hopeful pt will go from 3PA to at least 2PA today and will continue to work with her. Pt still needing IV-Abx and diuresis for another 1-2 days. SW made following SNF referrals: [facility]- [facility]- reviewing [facility]- reviewing [facility]- no female beds at this time. [facility]- reviewing. Pt bariatric and weighs 339 lbs and could be a barrier to SNF and if too much assist level. [facility] still needed for SNF. Ashlie Bodn, OPERATIONAL TRAINER
[2024-10-20] MEDS: APIXABAN 5 MG TABLET PO ×2 (12:34→20:26)
[2024-10-20] MEDS: cefTRIAXone 2,000 MG in SODIUM CHLORIDE 0.9% 100 ML 200 MG IV (14:23)
[2024-10-20] MEDS: ALBUTEROL/IPRATROPIUM 3 ML AMPUL INH (20:19)
[2024-10-20] MEDS: BUDESONIDE 0.5 MG/2 ML NEB INH (20:19)
[2024-10-20] MEDS: ATORVASTATIN 20 MG TABLET 80 MG PO (20:26)
[2024-10-20] MEDS: HYDROCODONE/ACET 5/325 TABLET 1 TAB PO (22:20)
[2024-10-21] VITALS (11 sets, daily range): BP systolic 118–140; BP diastolic 47–61; PULSE 88–107; RESP 16–21; TEMP 36.4–36.9; O2SAT 86–97
[2024-10-21] MEDS: FUROSEMIDE 40 MG/4 ML VIAL IV ×3 (00:40→17:28)
[2024-10-21 05:30] LABS: Add Manual Diff / Slide Review NO; Basophils Absolute Auto 0 /uL (0-100); Basophils Percent Auto 0.8 % (0-2); Eosinophils Absolute Auto 300 /uL (0-450); Eosinophils Percent Auto 4.9 % (2-4); Lymphocytes Absolute Auto 1300 /uL (1100-4500); Lymphocytes Percent Auto 21.5 % (25-40); Mean Corpuscular HGB Conc 33.2 % (30-36); Mean Corpuscular Hemoglobin 26.5 PG (26-34); Mean Corpuscular Volume 79.9 fL (80-100); Monocytes Absolute Auto 900 /uL (0-900); Monocytes Percent Auto 15.9 % (3-14); Neutrophils Absolute Auto 3300 /uL (1500-7000); Neutrophils Percent Auto 56.9 % (50-75); Platelet Count 200 X10^3/uL (150-400); Red Blood Cell Count 3.01 X10^6/uL (4.0-5.2); Red Cell Distribution Width 17.6 % (11.6-14.8); White Blood Cell Count 5.9 X10^3/uL (4.5-11.0)
[2024-10-21 05:57] LABS: BUN Creatinine Ratio 32.8 (6-22); Blood Urea Nitrogen 44 mg/dL (7-17); Calcium 8.5 mg/dL (8.4-10.2); Carbon Dioxide 27 mmol/L (22-32); Chloride 98 mmol/L (98-107); Estimated Glomerular Filt Rate 41 mL/min (>60); Glucose 109 mg/dL (80-110); HEMOLYSIS < 15 (0-50); Sodium 132 mmol/L (137-145)
[2024-10-21] MEDS: PANTOPRAZOLE DR 40 MG TABLET PO (06:34)
[2024-10-21] MEDS: SODIUM CHLORIDE 0.9% FLUSH 10 ML IV ×2 (08:25→20:11)
[2024-10-21] MEDS: CLOPIDOGREL 75 MG TABLET PO (08:25)
[2024-10-21] MEDS: APIXABAN 5 MG TABLET PO ×2 (08:25→20:10)
[2024-10-21] MEDS: HYDROCODONE/ACET 5/325 TABLET 1 TAB PO ×2 (09:31→20:10)
[2024-10-21] MEDS: MORPHINE 2 MG/ML INJ IV (10:32)
--- NOTE | 2024-10-21 10:38 | PT-IP ANOTE ---
Pt discussed in rounds and pt with B LE pain per nsg and ? need for assessment/diagnostic. PT reviews chart and pt has been on anticoagulant about 23 hours.
--- NOTE | 2024-10-21 10:40 | P.PN_ITS ---
Subjective Subjective Date Patient Seen: 10/21/24 Time Patient Seen: 08:13 Interval history: Narrative: 74-year-old female with past medical history of asthma, hypertension, hyperlipidemia, CHF, stroke on Plavix and hypertension presents with complaint of increased bilateral lower extremity edema and concern for bilateral leg cellulitis. Per the patient's report, the patient does have a history of stasis dermatitis. The patient was having increased weakness due to her increased leg swelling over the last few weeks. The patient states that she used to take Lasix but has not taken it for unclear reason lately. The patient was ambulating back from the bathroom and felt weak as her leg was very heavy due to swelling and the patient almost fell but did not actually fall. The patient also noted that over the last few days her lower extremity has started increased erythema and with some pain. Otherwise the patient should denies any fever, chills, nausea, vomiting or diarrhea. The patient denies any chest pain or shortness of breath. The patient admits that she does have some weeping of fluid from her legs and especially in her left leg. In the emergency room, the patient was hemodynamically stable and was saturating well on room air. Labs shows a hemoglobin of 8.6 potassium 5.7 troponin of 0.01 and a BNP of 453. UA was negative for UTI. The patient was given IV Lasix as well as IV clindamycin. Chest x-ray did show signs of CHF. 4/4: The patient has no dyspnea, though massive leg edema bilaterally. Her legs are sore and she has had difficulty ambulating. 4/5: Patient feels leg swelling and redness has gone down with diuretics and antibiotics 4/6: She reports more energy but overall weak. She states swelling has improved significantly in her legs. She has a 3-4 person assist and states she feels weak, but is hoping to return home to live independently with her Perez in [place]. Exam Vital Signs (past 8 hours): - 10/21/24 04:00 10/21/24 08:00 10/21/24 08:15 Temperature 98 F 97.8 F Pulse Rate 88 107 H Respiratory Rate 16 18 Blood Pressure 139/59 L 119/48 L Pulse Oximetry 96 92 95 Oxygen Delivery Method Oximask Oxygen Flow Rate 2 Fraction of Inspired Oxygen 28 Fraction of Inspired Oxygen 28 SaO2/FiO2 Ratio 339 Oxygen Delivery Method Oximask Oxygen Flow Rate 2 Narrative Exam Narrative: GENERAL: The patient is not in any acute distressed. Awake and alert. HEENT: Nonicteric sclerae, PERRLA, EOMI. Oropharynx clear. Moist mucous membranes. Conjunctivae appear well perfused. HEART: Regular rate and rhythm without murmurs. LUNGS: Clear to auscultation bilaterally. ABDOMEN: Soft, positive bowel sounds, nontender. EXTREMITIES: 1-2+ edema, improved with wrinkling of skin. SKIN: Bilateral stasis dermatitis with warmth, tenderness, and intermixed erythema within bullae with extensive scaling in both LEs. NEUROLOGIC: AxO x 3. Cranial nerves II-XII intact without motor/sensory deficit. Objective ECG Impression: Atrial fibrillation with controlled ventricular response, Imaging *: Radiologist's impression: 1. Chest xray 10/18/2024: Cardiomegaly congestion of central vessels suggesting CHF and/or volume overload. No significant pleural effusion or focal alveolar opacity. 2. Echocardiogram 10/19/2024: Technically difficult study. The patient was in atrial fibrillation with heart rates between 89-117 bpm during the exam. 1) Normal left ventricular size and thickness with low normal systolic function (EF 50-55%). 2) Moderately enlarged right ventricle with mildly reduced function. 3) There is mild aortic stenosis (valve area 1.7cm2, mean gradient 12mmHg). 4) The right ventricular systolic pressure is estimated to be at least 50 mmHg based on an estimated right atrial pressure of 15 mm Hg. 5) Compared to the echo done 04/19/2015, mild aortic stenosis and pulmonary hypertension are present on this study Labs 10/21/24 05:10 10/21/24 05:10 Labs: Laboratory Results - last 24 hr 10/21/24 05:10 WBC 5.9 RBC 3.01 L Hgb 8.0 L Hct 24.0 L MCV 79.9 L MCH 26.5 MCHC 33.2 RDW 17.6 H Plt Count 200 Neut % (Auto) 56.9 Lymph % (Auto) 21.5 L [place] % (Auto) 15.9 H Eos % (Auto) 4.9 H Baso % (Auto) 0.8 Neut # (Auto) 3300 Lymph # (Auto) 1300 [place] # (Auto) 900 Eos # (Auto) 300 Baso # (Auto) 0 Sodium 132 L Potassium 4.0 Chloride 98 Carbon Dioxide 27 BUN 44 H Creatinine 1.34 H Estimated GFR 41 L BUN/Creatinine Ratio 32.8 H Glucose 109 Calcium 8.5 PFS Medical History (Updated 10/21/24 @ 10:51 by Nazario Castano MD) Morbid obesity Stasis dermatitis Social History household members: spouse and children Smoking Status: Former smoker alcohol intake: current Assessment & Plan Assessment & Plan narrative: Bilateral lower extremity cellulitis, acute, POA - improving, continue IV clindamycin - secondary to venous insufficiency. - consult wound care Sunday 10/22 Acute on chronic heart failure exacerbation. - continue diuresis with furosemide 40 mg IV q8. - TTE unremarkable except new finding of atrial fibrillation. Chronic venous stasis with severe stasis dermatitis - continue IV furosemide as above - likely remain off amlodipine at discharge given edema - LE dopper US, rule out DVT (just started on Eliquis) - wound care consult Tuesday New diagnosis atrial fibrillation - new diagnosisAdmitting EKG showed atrial fibrillation - continue tele - TTE unremarkable. - currently rate controlled. - CHADS2-VASC score = 7 (11.2% per year stroke risk, 15.7% thromboembolism risk) - Eliquis added 10/20, continue clopidogrel, stopped aspirin Anemia - etiology unclear but new on this admission - check iron studies (borderline microcytic), B12, folate. TSH, guaics - careful monitoring given initiation of Eliquis above Hypertension. - holding home losartan and amlodipine in favor of diuretics currently. Normotensive today. - consider stopping amlodipine at discharge given lower extremity edema Hyperlipidemia. - continue home statin 80 mg Chronic pain. - continue hydrocodone COPD, chronic, without exacerbation - continue formulary nebulizers to replace home advair Hx of CVA - on clopidogrel and statin as above, aspirin stopped and Eliquis added for atrial fibrillation Code: Full, surrogate is patient's daughter DVT: Eliquis Dispo: patient admitted under inpatient status. Likely discharge to SNF after additional diuresis. Likely in the hospital for 3-4 days. PROFEE Keg Raiser Document charge(s): No Charge Codes Subsequent inpatient/observation care: [id number]
--- NOTE | 2024-10-21 10:50 | DI.US.S_ITS ---
PROCEDURE: [facility] VENOUS LOW EXTREM BI INDICATIONS: LE edema, rule out DVT TECHNIQUE: Real-time imaging, as well as color and pulse Doppler interrogation, were performed of the deep veins of both legs from the inguinal ligament to the popliteal fossa, with documentation of the visualized calf veins. COMPARISON: [facility], , [facility] VENOUS LOW EXTREM BI, 04/23/2023, 15:36. FINDINGS: Right: The common femoral, femoral, popliteal, and the visualized calf veins are normally compressible, and free of intraluminal thrombus. Color and pulse Doppler demonstrate normal phasic intravascular flow. There is normal augmentation response to distal compression maneuver. Left: The common femoral, femoral, popliteal, and the visualized calf veins are normally compressible, and free of intraluminal thrombus. Color and pulse Doppler demonstrate normal phasic intravascular flow. There is normal augmentation response to distal compression maneuver. Limited evaluation of several veins secondary to body habitus including the mid/distal superficial femoral vein and posterior tibial and peroneal veins. IMPRESSION: No findings of deep venous thrombosis in either lower extremity within the visualized veins. Dictated by: Dionicio Freed M.D. on 10/21/2024 at 13:18 Approved by: Dionicio Freed M.D. on 10/21/2024 at 13:19
--- NOTE | 2024-10-21 12:09 | PC.NURSE ---
Addendum entered by Shelby Castro R.N. 10/21/24 18:23: Pt declining to reposition at this time. Pt provided education on skin integrity and pressure injury prevention. Pt continues to decline. Pillows currently on either side, bridging pt, heels elevated and floating to prevent breakdown. Care ongoing. Addendum entered by Shelby Castro R.N. 10/21/24 17:51: Bilateral heels erythema, blanchable. Floated with rolled linens at approximately 1000. Erythema no longer present at 1700, continues to show cap refill <2 sec, blanchable. Care ongoing. Addendum entered by Shelby Castro R.N. 10/21/24 17:50: Pt continues to require intermittent O2 2L NC. Declined RT treatment. Original Note: Day shift: 1200 pt oxygenation 88%, encouraged to take deep breaths. Still 88-90% on RA. Pt visibly tachypenic, RR 25-30 but denies SOB. 2L NC initiated, O2 sat 94-95%. Pt declining ordered breathing treatment. Educated pt on different options. Pt agreeing to albuterol breathing treatment. RT notified. Care ongoing.
--- NOTE | 2024-10-21 12:17 | PT-IP ANOTE ---
Pt orders for BLE US, hold PT today.
--- NOTE | 2024-10-21 12:20 | CM.DPC ---
DCP SNF Planning: Per MD, pt making slow progress and likely another 2-3 days for Lasix and IV abx before stable for discharge to SNF. SW followed up on following SNF referrals: [facility]- full [facility]- reviewing but unsure they will have a denise bed or enough care to meet pt's needs, but will continue to follow. [facility]- left msg [facility]- left msg [facility]- they can accept and will follow for when pt medically stable to discharge. SW met bedside with pt and adult Dtr and updated on above and provided [facility] brochure and they confirm they do not want [facility] and would be agreeable to [facility] but would like confirmation that [facility] cannot accept as pt has been there before and would be easier for family to visit although a family member works at a facility in [facility] and could easily see pt at [facility]. PASRR done. Plan: SW to follow for plan of final review by [facility] to confirm if they can accept vs discharge to [facility] when medically stable. Ashlie Bond, ENVIRONMENTAL QUALITY ANALYST
[2024-10-21] MEDS: ALBUTEROL 2.5 MG/3 ML NEB (ADULT) INH (13:03)
[2024-10-21] MEDS: cefTRIAXone 2,000 MG in SODIUM CHLORIDE 0.9% 100 ML 200 MG IV (14:49)
[2024-10-21] MEDS: ATORVASTATIN 20 MG TABLET 80 MG PO (20:10)
[2024-10-22] VITALS (8 sets, daily range): BP systolic 104–121; BP diastolic 41–55; PULSE 79–98; RESP 13–24; TEMP 36.4–36.8; O2SAT 87–98
[2024-10-22] MEDS: FUROSEMIDE 40 MG/4 ML VIAL IV ×3 (00:52→16:06)
[2024-10-22 05:34] LABS: Add Manual Diff / Slide Review NO; Basophils Absolute Auto 100 /uL (0-100); Basophils Percent Auto 1.7 % (0-2); Eosinophils Absolute Auto 300 /uL (0-450); Eosinophils Percent Auto 4.6 % (2-4); Hematocrit 23.9 % (36-46); Hemoglobin 7.9 g/dL (12.0-16.0); Lymphocytes Absolute Auto 900 /uL (1100-4500); Lymphocytes Percent Auto 16.4 % (25-40); Mean Corpuscular HGB Conc 33.2 % (30-36); Mean Corpuscular Hemoglobin 26.7 PG (26-34); Mean Corpuscular Volume 80.6 fL (80-100); Monocytes Absolute Auto 900 /uL (0-900); Monocytes Percent Auto 16.6 % (3-14); Neutrophils Absolute Auto 3300 /uL (1500-7000); Neutrophils Percent Auto 60.7 % (50-75); Platelet Count 200 X10^3/uL (150-400); Red Blood Cell Count 2.96 X10^6/uL (4.0-5.2); Red Cell Distribution Width 17.3 % (11.6-14.8); White Blood Cell Count 5.4 X10^3/uL (4.5-11.0)
[2024-10-22 05:47] LABS: BUN Creatinine Ratio 38.6 (6-22); Blood Urea Nitrogen 44 mg/dL (7-17); Calcium 8.4 mg/dL (8.4-10.2); Carbon Dioxide 30 mmol/L (22-32); Chloride 98 mmol/L (98-107); Estimated Glomerular Filt Rate 50 mL/min (>60); Glucose 115 mg/dL (80-110); Magnesium 1.4 mg/dL (1.6-2.3); Sodium 133 mmol/L (137-145)
[2024-10-22 06:03] LABS: HEMOLYSIS 26 (0-50); Iron 34 ug/dL (37-170)
[2024-10-22 06:14] LABS: Percent Iron Saturation 9 % (15-50); Total Iron Binding Capacity 389 ug/dL (265-497); Transferrin 324 mg/dL (206-381)
[2024-10-22] MEDS: PANTOPRAZOLE DR 40 MG TABLET PO (06:17)
[2024-10-22] MEDS: MAGNESIUM SULFATE 2 GM/50 ML PIGGYBACK IV (06:17)
[2024-10-22 06:34] LABS: Vitamin B12 Reflex MMA if <400 371 pg/mL (239-931)
[2024-10-22 06:36] LABS: TSH w/ Reflex to FT4 0.91 uIU/mL (0.47-4.68)
[2024-10-22 06:38] LABS: Ferritin 32 ng/mL (11-264); HEMOLYSIS 22 (0-50)
[2024-10-22] MEDS: APIXABAN 5 MG TABLET PO ×2 (08:39→20:19)
[2024-10-22] MEDS: SODIUM CHLORIDE 0.9% FLUSH 10 ML IV ×2 (08:39→20:19)
[2024-10-22] MEDS: CLOPIDOGREL 75 MG TABLET PO (08:39)
[2024-10-22] MEDS: HYDROCODONE/ACET 5/325 TABLET 1 TAB PO ×2 (13:38→19:27)
--- NOTE | 2024-10-22 13:52 | OT.IP.TRT ---
Current Diagnoses Heart failure, unspecified (10/19/24) Venous insufficiency (chronic) (peripheral) (10/19/24) Occupational Therapy Treatment Note M2 OT-IP Current Condition Start: 10/19/24 11:44 Freq: Status: Active Protocol: Document 10/19/24 11:44 [facility] (Rec: 10/19/24 12:00 [facility] [id number]) Occupational Therapy Current Condition Current Condition Evaluation Date 10/19/24 Treatment Diagnosis Cellulitis, acute on chronic heart failure exacerbation M3 OT- IP Subjective and Pain Start: 10/19/24 11:44 Freq: Status: Active Protocol: Document 10/22/24 13:51 [facility] (Rec: 10/22/24 13:58 [facility] Desktop) OT- Subjective Occupational Therapy Visit Type Type Treatment Note Visit Start Time 13:29 Visit Stop Time 13:52 Notes Partial co-treat with P.T. OT Pain Assessment Pain When Pain Assessed At Rest Pain Present Pain Present Pain Reported Location Bilateral Leg Scale Used did not rate Pain Behaviors Facial Grimacing Management Techniques Modification of Treatment,Re- positioning,Timing of Activity with Medications M4 OT- IP ADL's Start: 10/19/24 11:44 Freq: Status: Active Protocol: Document 10/22/24 13:51 [facility] (Rec: 10/22/24 13:58 [facility] Desktop) OT [id number] Comments OT Self-Feeding Comments not meal time OT ADL-Grooming General Evaluation Grooming Ability Standby Assistance Areas Needing Assistance Retrieving/Set-up of Grooming Items,Face Washing Comments OT Grooming Comments supported sitting in bed OT ADL-Oral Care General Eval Oral Care Ability Standby Assistance Areas of Assistance Brushing Teeth,Retrieving/Set- Up of Items Comments Oral Care Comments Pt used a sponge with tooth paste to wash out her mouth. OT ADL-Dressing General Eval Upper Body Dressing Ability Maximum Assistance Comments OT Dressing Comments hospital gown OT ADL-Toileting General Evaluation Toileting Ability Total Assistance Comments OT Toileting Comments pt wet, clothing removed, pt has been using the periwick OT ADL-Bathing Comments OT Bathing Comments not performed M5 OT- IP IADL's Start: 10/19/24 11:44 Freq: Status: Active Protocol: Document 10/19/24 11:44 [facility] (Rec: 10/19/24 12:00 [facility] [id number]) OT-Instrumental Activities of Daily Living Medication Management Medication Management Comments Per pt , her daughter assists with pill management needs via organizer. Money Management Money Management Caregiver Provides Assistance M6 OT- IP Functional Cognition Start: 10/19/24 11:44 Freq: Status: Active Protocol: Document 10/19/24 11:44 [facility] (Rec: 10/19/24 12:00 [facility] [id number]) Cognitive Factors Limiting Selfcare Function Cognitive Ability Level of Alertness Alert Patient Orientation Name,Place,Situation Attention Span Ability Capable of Focused Attention, Capable of Sustained Attention Ability to Follow Commands Able to Follow One Step Commands with Increased Time, Able to Follow One Step Commands with Repetition Cognitive Comments Cognitive Assessment Comments Pt very fearful of falling. Pt needing cues to relax and encouragement to try to get up . Pt may benefit from formal cognitive assessement. OT- Vision and Hearing OT- Hearing Assessment OT- Hearing Assessment WFL OT- Vision Assessment Visual Acuity Glasses For Reading Visual Attentiveness WFL Occular Pursuits WFL M7 OT- IP Mobility and Balance Start: 10/19/24 11:44 Freq: Status: Active Protocol: Document 10/19/24 11:44 [facility] (Rec: 10/19/24 12:00 [facility] [id number]) OT- Bed Mobility Assessment Supine to Sit Supine to Sit Assist Total Assistance,1 Person Assistance,2 Person Assistance ,Head of Bed Elevated,Bedrails Sit to Supine Sit to Supine Assist Total Assistance,1 Person Assistance,2 Person Assistance ,Head of Bed Elevated,Bedrails Scooting Scooting to Edge of Bed Total Assistance,2 Person Assistance OT-Transfer Assessment Comments Mobility Comments Total assist of 3 and use of pads to help lift her legs to the edge of the bed. Pt able to assist minimally with her right arm to get her trunk to the left with MODAx1 and use of bed rail. Total A x3 for bed mobilty needs and use of adjuable bed to assist with positioning needs. Trapeze bar placed so pt able to use to help with Rue strengthening, endurance , and postioning in the bed. OT- Balance Assessment Sitting Balance and Reactions Static Sitting Balance Ability Good Dynamic Sitting Balance Ability Fair M8 OT- IP Objective Assessments Start: 10/19/24 11:44 Freq: Status: Active Protocol: Document 10/19/24 11:44 [facility] (Rec: 10/19/24 12:00 [facility] [id number]) OT Gross Range of Motion Upper Extremity Range of Motion Assessment Left Impaired OT Strength Upper Extremity Strength Assessment Left Impaired Comments Strength Comments LUE 3-/5 to 4-/5 RUE 4+/5 OT Sensation Assessment Edema Edema Present Edema Comments BLE due to cellulitis M9 OT- IP Assessment and Plan Start: 10/19/24 11:44 Freq: Status: Active Protocol: Document 10/22/24 13:51 [facility] (Rec: 10/22/24 13:58 [facility] Desktop) OT Summary Assessment and Plan Potential Rehabilitation Potential Fair Analytic Complexity at Evaluation Moderate Summary OT Impairments Pain,Range of Motion,Strength, Balance,Functional Cognition, Functional Mobility,Self- Feeding,Grooming,Dressing, Toileting,Bathing,Toilet Transfers,Shower Transfers, Activity Tolerance Progress Towards Goals Slow Progress due to Pain,Slow Progress due to Medical Issues,Slow Progress due to Activity Tolerance,Slow Progress due to Cognition Assessment Summary Pt MOD complexity and main barriers are pain, inability to move her BLE due to swelling from cellulitis and heart failure exacerbation. In todays session we did in bed activities with LE exercises and UE pull ups using the trapeze bar. Pt attempted to pull herself up in bed while in Trendelenburg with good effort but little effect. After skilled rehab pt may need increased assist for her family especially for dressing , toileting, and showering needs in assist to IADL needs Goals Self-Feeding Goal Independent Grooming Goal Independent Dressing Goal Moderate Assistance Toileting Goal Minimal Assistance Bathing Goal Moderate Assistance Toilet Transfer Goal Moderate Assistance Shower Transfer Goal Moderate Assistance Days to Meet Goals 30 Frequency of Treatment Other frequency 3-5x/week Treatment Plan OT Treatment Plan ADL Training,Functional Cognition Training,Functional Mobility,Patient/Family Education,Discharge Planning Other Treatment Recommendations and Next SLUMS Treatment Focus Discharge Recommendations OT Discharge Recommendations SNF Rehab Transportation Needs at Discharge Stretcher/Ambulance
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
[2024-10-22] MEDS: cefTRIAXone 2,000 MG in SODIUM CHLORIDE 0.9% 100 ML 200 MG IV (16:06)
[2024-10-22] MEDS: MORPHINE 2 MG/ML INJ IV (16:09)
--- NOTE | 2024-10-22 16:51 | PM.PN.1 ---
Subjective Subjective Date Patient Seen: 10/22/24 Time Patient Seen: 16:52 Interval history: Chief complaint: Congestive heart failure and cellulitis with leg edema History of present illness: 74-year-old female with past medical history of asthma, hypertension, hyperlipidemia, CHF, stroke on Plavix and hypertension presents with complaint of increased bilateral lower extremity edema and concern for bilateral leg cellulitis. Per the patient's report, the patient does have a history of stasis dermatitis. The patient was having increased weakness due to her increased leg swelling over the last few weeks. The patient states that she used to take Lasix but has not taken it for unclear reason lately. The patient was ambulating back from the bathroom and felt weak as her leg was very heavy due to swelling and the patient almost fell but did not actually fall. The patient also noted that over the last few days her lower extremity has started increased erythema and with some pain. Otherwise the patient should denies any fever, chills, nausea, vomiting or diarrhea. The patient denies any chest pain or shortness of breath. The patient admits that she does have some weeping of fluid from her legs and especially in her left leg. In the emergency room, the patient was hemodynamically stable and was saturating well on room air. Labs shows a hemoglobin of 8.6 potassium 5.7 troponin of 0.01 and a BNP of 453. UA was negative for UTI. The patient was given IV Lasix as well as IV clindamycin. Chest x-ray did show signs of CHF. 4/4: The patient has no dyspnea, though massive leg edema bilaterally. Her legs are sore and she has had difficulty ambulating. 4/5: Patient feels leg swelling and redness has gone down with diuretics and antibiotics 4/6: She reports more energy but overall weak. She states swelling has improved significantly in her legs. She has a 3-4 person assist and states she feels weak, but is hoping to return home to live independently with her Perez in [place]. 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 - consult wound care Sunday 10/22 Acute on chronic heart failure exacerbation. - continue diuresis with furosemide 40 mg IV q8. - TTE unremarkable except new finding of atrial fibrillation. Chronic venous stasis with severe stasis dermatitis - continue IV furosemide as above - likely remain off amlodipine at discharge given edema - LE dopper US, rule out DVT (just started on Eliquis) - wound care consult Tuesday New diagnosis atrial fibrillation - new diagnosisAdmitting EKG showed atrial fibrillation - continue tele - TTE unremarkable. - currently rate controlled. - CHADS2-VASC score = 7 (11.2% per year stroke risk, 15.7% thromboembolism risk) - Eliquis added 10/20, continue clopidogrel, stopped aspirin Anemia - etiology unclear but new on this admission - check iron studies (borderline microcytic), B12, folate. TSH, guaics - careful monitoring given initiation of Eliquis above Hypertension. - holding home losartan and amlodipine in favor of diuretics currently. Normotensive today. - consider stopping amlodipine at discharge given lower extremity edema Hyperlipidemia. - continue home statin 80 mg Chronic pain. - continue hydrocodone COPD, chronic, without exacerbation - continue formulary nebulizers to replace home advair Hx of CVA - on clopidogrel and statin as above, aspirin stopped and Eliquis added for atrial fibrillation Code: Full, surrogate is patient's daughter DVT: Eliquis Dispo: patient admitted under inpatient status. Likely discharge to SNF after additional diuresis. Exam Vital Signs (past 8 hours): - 10/22/24 12:00 Temperature 98 F Pulse Rate 98 H Respiratory Rate 24 Blood Pressure 121/55 L Pulse Oximetry 87 L Fraction of Inspired Oxygen 32 SaO2/FiO2 Ratio 296 Oxygen Delivery Method Nasal Cannula Oxygen Flow Rate 3 Objective Labs 10/22/24 05:14 10/22/24 05:14 Labs: Laboratory Results - last 24 hr 10/22/24 05:14 WBC 5.4 RBC 2.96 L Hgb 7.9 L Hct 23.9 L MCV 80.6 MCH 26.7 MCHC 33.2 RDW 17.3 H Plt Count 200 Neut % (Auto) 60.7 Lymph % (Auto) 16.4 L [place] % (Auto) 16.6 H Eos % (Auto) 4.6 H Baso % (Auto) 1.7 Neut # (Auto) 3300 Lymph # (Auto) 900 L [place] # (Auto) 900 Eos # (Auto) 300 Baso # (Auto) 100 Sodium 133 L Potassium 4.0 Chloride 98 Carbon Dioxide 30 BUN 44 H Creatinine 1.14 H Estimated GFR 50 L BUN/Creatinine Ratio 38.6 H Glucose 115 H Calcium 8.4 Magnesium 1.4 L Iron 34 L TIBC 389 % Saturation 9 L Transferrin 324 Ferritin 32 Vitamin B12 371 TSH 0.91 PFSH Medical History (Updated 10/21/24 @ 10:51 by Nazario Castano MD) Stasis dermatitis Morbid obesity Social History household members: spouse and children Smoking Status: Former smoker alcohol intake: current Assessment & Plan Time-Based Coding :: [TOTAL MINUTES] spent with patient and on the chart (including review of chart, obtaining history, exam, reviewing outside data, placing orders, documenting exam and treatment plan, and counseling patient) on [DATE].
[2024-10-22] MEDS: ATORVASTATIN 20 MG TABLET 80 MG PO (20:18)
[2024-10-23] VITALS (8 sets, daily range): BP systolic 114–133; BP diastolic 41–65; PULSE 73–102; RESP 16–20; TEMP 36.1–36.8; O2SAT 89–99
[2024-10-23] MEDS: FUROSEMIDE 40 MG/4 ML VIAL IV ×3 (02:08→17:15)
[2024-10-23 05:15] LABS: BUN Creatinine Ratio 37.2 (6-22); Blood Urea Nitrogen 42 mg/dL (7-17); Calcium 8.5 mg/dL (8.4-10.2); Carbon Dioxide 34 mmol/L (22-32); Chloride 97 mmol/L (98-107); Estimated Glomerular Filt Rate 50 mL/min (>60); Glucose 114 mg/dL (80-110); HEMOLYSIS < 15 (0-50); Magnesium 1.6 mg/dL (1.6-2.3); Potassium 3.6 mmol/L (3.4-5.1); Sodium 135 mmol/L (137-145)
[2024-10-23] MEDS: PANTOPRAZOLE DR 40 MG TABLET PO (06:04)
[2024-10-23] MEDS: APIXABAN 5 MG TABLET PO ×2 (09:03→21:16)
[2024-10-23] MEDS: SODIUM CHLORIDE 0.9% FLUSH 10 ML IV ×2 (09:03→21:16)
[2024-10-23] MEDS: CLOPIDOGREL 75 MG TABLET PO (09:03)
[2024-10-23] MEDS: MAGNESIUM CHLORIDE 64 MG TABLET 128 MG PO (10:42)
[2024-10-23] MEDS: HYDROCODONE/ACET 5/325 TABLET 1 TAB PO ×2 (10:52→23:44)
--- NOTE | 2024-10-23 11:52 | P.DS_ITS ---
History of Present Illness History of Present Illness Date Patient Seen: 10/23/24 Time Patient Seen: 11:52 Chief complaint: increases weakness and BLE edema, cellulitis Narrative: Chief complaint: Congestive heart failure and cellulitis with leg edema History of present illness: 74-year-old female with past medical history of asthma, hypertension, hyperlipidemia, CHF, stroke on Plavix and hypertension presents with complaint of increased bilateral lower extremity edema and concern for bilateral leg cellulitis. Per the patient's report, the patient does have a history of stasis dermatitis. The patient was having increased weakness due to her increased leg swelling over the last few weeks. The patient states that she used to take Lasix but has not taken it for unclear reason lately. The patient was ambulating back from the bathroom and felt weak as her leg was very heavy due to swelling and the patient almost fell but did not actually fall. The patient also noted that over the last few days her lower extremity has started increased erythema and with some pain. Otherwise the patient should denies any fever, chills, nausea, vomiting or diarrhea. The patient denies any chest pain or shortness of breath. The patient admits that she does have some weeping of fluid from her legs and especially in her left leg. In the emergency room, the patient was hemodynamically stable and was saturating well on room air. Labs shows a hemoglobin of 8.6 potassium 5.7 troponin of 0.01 and a BNP of 453. UA was negative for UTI. The patient was given IV Lasix as well as IV clindamycin. Chest x-ray did show signs of CHF. 4/4: The patient has no dyspnea, though massive leg edema bilaterally. Her legs are sore and she has had difficulty ambulating. 4/5: Patient feels leg swelling and redness has gone down with diuretics and antibiotics 4/6: She reports more energy but overall weak. She states swelling has improved significantly in her legs. She has a 3-4 person assist and states she feels weak, but is hoping to return home to live independently with her Perez in [place]. /7: Desaturates while sleeping but otherwise not symptomatic Review of systems: No fever or chills No headache No difficulty swallowing No cough or shortness of breath Physical exam: Alert no acute distress Heart sounds distant no murmurs appreciated Lungs sounds distant Pruning of the lower extremities with advanced chronic lymphedema Assessment & Plan Bilateral lower extremity cellulitis, acute, POA - improving, continue IV clindamycin - secondary to venous insufficiency. - consult wound care Sunday 10/22 Acute on chronic heart failure exacerbation. - continue diuresis with furosemide 40 mg IV q8. - TTE unremarkable except new finding of atrial fibrillation. Chronic venous stasis with severe stasis dermatitis - continue IV furosemide as above - likely remain off amlodipine at discharge given edema - LE dopper US, rule out DVT (just started on Eliquis) - wound care consult Tuesday New diagnosis atrial fibrillation - new diagnosisAdmitting EKG showed atrial fibrillation - continue tele - TTE unremarkable. - currently rate controlled. - CHADS2-VASC score = 7 (11.2% per year stroke risk, 15.7% thromboembolism risk) - Eliquis added 10/20, continue clopidogrel, stopped aspirin Anemia - etiology unclear but new on this admission - check iron studies (borderline microcytic), B12, folate. TSH, guaics - careful monitoring given initiation of Eliquis above Hypertension. - holding home losartan and amlodipine in favor of diuretics currently. Normotensive today. - consider stopping amlodipine at discharge given lower extremity edema Hyperlipidemia. - continue home statin 80 mg Chronic pain. - continue hydrocodone COPD, chronic, without exacerbation - continue formulary nebulizers to replace home advair Hx of CVA - on clopidogrel and statin as above, aspirin stopped and Eliquis added for atrial fibrillation Code: Full, surrogate is patient's daughter DVT: Eliquis 35 minutes was involved in patient care and managing discharge Discharge Providers Provider Date of admission: 10/19/24 13:24 Discharge Date: 10/23/24 Primary care physician: Dulce Wellington PA-C Consults: 10/19/24 01:38 Consult to Occupational Therapy Evaluate & Treat Comment: Physician Instructions: Evaluate and treat Consult to Physical Therapy Evaluate & Treat Comment: Physician Instructions: Evaluate and Treat 10/21/24 10:50 Consult to Wound Care Routine Comment: ok Tuesday Consulting Provider: [facility] Discharge provider: Nicolas Nicolas MD Exam Vital Signs (past 8 hours): - 10/23/24 08:00 10/23/24 08:38 Temperature 97.4 F L Pulse Rate 102 H Respiratory Rate 18 Blood Pressure 133/63 Pulse Oximetry 89 L 93 Oxygen Delivery Method Nasal Cannula Oxygen Flow Rate 2 Fraction of Inspired Oxygen 28 Fraction of Inspired Oxygen 28 SaO2/FiO2 Ratio 332 Oxygen Delivery Method Nasal Cannula Oxygen Flow Rate 2 Objective Labs 10/22/24 05:14 10/23/24 04:34 Labs: Laboratory Results - last 24 hr 10/23/24 04:34 Sodium 135 L Potassium 3.6 Chloride 97 L Carbon Dioxide 34 H BUN 42 H Creatinine 1.13 H Estimated GFR 50 L BUN/Creatinine Ratio 37.2 H Glucose 114 H Calcium 8.5 Magnesium 1.6 PFSH Medical History (Updated 10/21/24 @ 10:51 by Nazario Castano MD) Stasis dermatitis Morbid obesity Social History household members: spouse and children Smoking Status: Former smoker alcohol intake: current Discharge Plan Discharge Plan Patient Disposition: SNF Transfer to: [facility] Discharge orders & Medications Prescriptions: New acetaminophen 325 mg Tablet 650 mg PO Q6H PRN (Reason: Fever/Mild Pain (1-3)) Qty: 10 0RF ipratropium-albuterol 0.5 mg-3 mg(2.5 mg base)/3 mL Solution For Nebulization 3 ml INH RTBID Qty: 10 0RF hydrocodone-acetaminophen 5-325 mg Tablet 1 tab PO Q4H PRN (Reason: Pain, Moderate (4-6)) Qty: 12 0RF pantoprazole 40 mg Tablet,Delayed Release (Dr/Ec) 40 mg PO 0700 Qty: 30 0RF budesonide [Pulmicort] 0.5 mg/2 mL Suspension For Nebulization 0.5 mg INH RTBID Qty: 10 0RF nystatin [Nystop] 100,000 unit/gram Powder 1 applic topical BID PRN (Reason: Rash) Qty: 100 0RF Eliquis 5 mg Tablet 5 mg PO BID Qty: 60 0RF Continued albuterol sulfate [Ventolin HFA] 90 MCG/PUFF HFA aerosol inhaler 2 puff INH Q4HP PRN (Reason: Shortness Of Breath) Qty: 0 atorvastatin 80 MG tablet 80 mg PO BEDTIME Qty: 0 fluticasone propion-salmeterol [Advair Diskus] 250-50 mcg/dose blister with device 1 inh INHALATION BID Patient Comments: INHALE 1 PUFF BY MOUTH TWICE DAILY atorvastatin 80 mg tablet 80 mg PO DAILY clopidogrel 75 mg Tablet 75 mg PO DAILY Changed furosemide [Lasix] 20 mg tablet 20 mg PO BID Qty: 30 2RF Discontinued oxybutynin chloride 15 MG tablet extended release 24hr 15 mg PO BID Qty: 0 amlodipine [Norvasc] 5 MG tablet 10 mg PO DAILY Qty: 0 benzonatate 200 mg capsule 200 mg PO BID PRN (Reason: cough) Qty: 20 0RF lidocaine [Lidoderm] 5 % adhesive patch,medicated 1 patch TOP DAILY Qty: 15 0RF Rx Instructions: leave on most painful area for 12 hrs tramadol 50 mg tablet 50 mg PO TID PRN (Reason: pain) Qty: 20 0RF losartan 100 mg Tablet 100 mg PO DAILY furosemide [Lasix] 20 mg tablet 20 mg PO DAILY Qty: 7 0RF hydrocodone-acetaminophen 5-325 mg tablet 1 tab PO Q6H PRN (Reason: pain) Qty: 10 0RF tramadol 50 mg tablet 50 mg PO Q8H PRN (Reason: pain) Qty: 14 0RF Follow up/Referrals: Dulce Wellington PA-C [Primary Care Provider] - Visit Report/Discharge Packet Stand Alone Forms: Patient Portal/API Discharge Data Primary Care Provider: Dulce Wellington
--- NOTE | 2024-10-23 13:17 | OT.IP.TRT ---
Current Diagnoses Heart failure, unspecified (10/19/24) Venous insufficiency (chronic) (peripheral) (10/19/24) Occupational Therapy Treatment Note M2 OT-IP Current Condition Start: 10/19/24 11:44 Freq: Status: Active Protocol: Document 10/19/24 11:44 [facility] (Rec: 10/19/24 12:00 [facility] [id number]) Occupational Therapy Current Condition Current Condition Evaluation Date 10/19/24 Treatment Diagnosis Cellulitis, acute on chronic heart failure exacerbation M3 OT- IP Subjective and Pain Start: 10/19/24 11:44 Freq: Status: Active Protocol: Document 10/23/24 13:28 [facility] (Rec: 10/23/24 13:33 [facility] Desktop) OT- Subjective Occupational Therapy Visit Type Type Treatment Note Visit Start Time 13:06 Visit Stop Time 13:17 Occupational Therapy Visit Comments Patient Comments Pt still eating but agreed to do SLUMS. Patient/Caregiver Goals TO get better. OT Pain Assessment Pain When Pain Assessed At Rest Pain Present Pain Present Pain Reported Location Bilateral Leg Scale Used did not rate M4 OT- IP ADL's Start: 10/19/24 11:44 Freq: Status: Active Protocol: Document 10/22/24 13:51 [facility] (Rec: 10/22/24 13:58 [facility] Desktop) OT [id number] Comments OT Self-Feeding Comments not meal time OT ADL-Grooming General Evaluation Grooming Ability Standby Assistance Areas Needing Assistance Retrieving/Set-up of Grooming Items,Face Washing Comments OT Grooming Comments supported sitting in bed OT ADL-Oral Care General Eval Oral Care Ability Standby Assistance Areas of Assistance Brushing Teeth,Retrieving/Set- Up of Items Comments Oral Care Comments Pt used a sponge with tooth paste to wash out her mouth. OT ADL-Dressing General Eval Upper Body Dressing Ability Maximum Assistance Comments OT Dressing Comments hospital gown OT ADL-Toileting General Evaluation Toileting Ability Total Assistance Comments OT Toileting Comments pt wet, clothing removed, pt has been using the periwick OT ADL-Bathing Comments OT Bathing Comments not performed M5 OT- IP IADL's Start: 10/19/24 11:44 Freq: Status: Active Protocol: Document 10/19/24 11:44 [facility] (Rec: 10/19/24 12:00 [facility] [id number]) OT-Instrumental Activities of Daily Living Medication Management Medication Management Comments Per pt , her daughter assists with pill management needs via organizer. Money Management Money Management Caregiver Provides Assistance M6 OT- IP Functional Cognition Start: 10/19/24 11:44 Freq: Status: Active Protocol: Document 10/23/24 13:28 [facility] (Rec: 10/23/24 13:33 [facility] Desktop) Cognitive Factors Limiting Selfcare Function Cognitive Ability Level of Alertness Alert Patient Orientation Name,Age,Birthday,Month,Date, Year,Day of Week,Place, Situation Attention Span Ability Capable of Focused Attention, Capable of Sustained Attention Ability to Follow Commands Able to Follow One Step Commands Cognitive Tests SLUMS Pt scored 27/30 which implies normal for cognitive needs. Pt states feeling much better. Cognitive Comments Cognitive Assessment Comments Pt not wanting to get up at this time as still eating her lunch. Encouraged pt to sit up with HOB up more in the bed, to better eating posture. M7 OT- IP Mobility and Balance Start: 10/19/24 11:44 Freq: Status: Active Protocol: Document 10/19/24 11:44 [facility] (Rec: 10/19/24 12:00 [facility] [id number]) OT- Bed Mobility Assessment Supine to Sit Supine to Sit Assist Total Assistance,1 Person Assistance,2 Person Assistance ,Head of Bed Elevated,Bedrails Sit to Supine Sit to Supine Assist Total Assistance,1 Person Assistance,2 Person Assistance ,Head of Bed Elevated,Bedrails Scooting Scooting to Edge of Bed Total Assistance,2 Person Assistance OT-Transfer Assessment Comments Mobility Comments Total assist of 3 and use of pads to help lift her legs to the edge of the bed. Pt able to assist minimally with her right arm to get her trunk to the left with MODAx1 and use of bed rail. Total A x3 for bed mobilty needs and use of adjuable bed to assist with positioning needs. Trapeze bar placed so pt able to use to help with Rue strengthening, endurance , and postioning in the bed. OT- Balance Assessment Sitting Balance and Reactions Static Sitting Balance Ability Good Dynamic Sitting Balance Ability Fair M8 OT- IP Objective Assessments Start: 10/19/24 11:44 Freq: Status: Active Protocol: Document 10/19/24 11:44 [facility] (Rec: 10/19/24 12:00 [facility] [id number]) OT Gross Range of Motion Upper Extremity Range of Motion Assessment Left Impaired OT Strength Upper Extremity Strength Assessment Left Impaired Comments Strength Comments LUE 3-/5 to 4-/5 RUE 4+/5 OT Sensation Assessment Edema Edema Present Edema Comments BLE due to cellulitis M9 OT- IP Assessment and Plan Start: 10/19/24 11:44 Freq: Status: Active Protocol: Document 10/23/24 13:28 [facility] (Rec: 10/23/24 13:33 [facility] Desktop) OT Summary Assessment and Plan Potential Rehabilitation Potential Fair Analytic Complexity at Evaluation Moderate Summary OT Impairments Pain,Range of Motion,Strength, Balance,Functional Cognition, Functional Mobility,Self- Feeding,Grooming,Dressing, Toileting,Bathing,Toilet Transfers,Shower Transfers, Activity Tolerance Progress Towards Goals Slow Progress due to Pain,Slow Progress due to Medical Issues,Slow Progress due to Activity Tolerance Assessment Summary Pt scored 27/30 on the SLUMS which implied normal for cognition. Pt to go to skilled rehab when medically stable. Goals Self-Feeding Goal Independent Grooming Goal Independent Dressing Goal Moderate Assistance Toileting Goal Minimal Assistance Bathing Goal Moderate Assistance Toilet Transfer Goal Moderate Assistance Shower Transfer Goal Moderate Assistance Days to Meet Goals 30 Frequency of Treatment Other frequency 3-5x/week Treatment Plan OT Treatment Plan ADL Training,Functional Cognition Training,Functional Mobility,Patient/Family Education,Discharge Planning Discharge Recommendations OT Discharge Recommendations SNF Rehab Transportation Needs at Discharge Stretcher/Ambulance
--- NOTE | 2024-10-23 13:30 | PT.IPTN ---
Current Diagnoses Heart failure, unspecified (10/19/24) Venous insufficiency (chronic) (peripheral) (10/19/24) Physical Therapy Treatment Note M2 PT-IP Current Condition Start: 10/19/24 12:57 Freq: NEEDED Status: Active Protocol: Document 10/19/24 10:30 AB (Rec: 10/19/24 13:11 AB [id number]) Physical Therapy Current Condition Current Condition Evaluation Date 10/19/24 Treatment Diagnosis CHF exacerbation; LLE cellulitis; difficulty in walking Onset Date 10/19/24 M3 PT-IP Subjective Start: 10/19/24 12:57 Freq: NEEDED Status: Active Protocol: Document 10/23/24 13:30 AB (Rec: 10/23/24 15:14 AB [id number]) Subjective Physical Therapy Visit Type Type Treatment Note Visit Start Time 13:30 Visit Stop Time 14:15 Number of GOVERNMENT SERVICE EXECUTIVE Visits 0 Physical Therapy Visit Comments Patient Comments agreeable to do PT Therapy Pain Assessment Pain When Pain Assessed During Mobility Pain Present Pain Present Pain Reported Location Bilateral Leg Scale Used pain scale not stated Pain Behaviors Guarding,Wincing Pain Management Techniques Distraction,Re-positioning, Timing of Activity with Medications M4 PT-IP Mobility and Gait Start: 10/19/24 12:57 Freq: NEEDED Status: Active Protocol: Document 10/23/24 13:30 AB (Rec: 10/23/24 15:14 AB [id number]) PT-Bed Mobility Assessment Supine to Sit Supine to Sit Maximum Assistance,2 Person Assistance,Head of Bed Elevated,Bedrails Sit to Supine Sit to Supine Maximum Assistance,2 Person Assistance,Bedrails Scooting Scooting to Edge of Bed Dependent Scooting Up and Down in Bed Dependent PT-Transfer Assessment Comments Mobility Comments pt in bed and agreeable to do PT. Bed positioned on lateral tilt to the R. pt completed supine to sit max A x 2 and max cues. positioned pillow under LLE to decrease posterior pressure of EOB on LLE. pt with c/o pain but able to tolerate activity better today. total A for scooting to EOB. pt tolerated ~ 10min of sitting on EOB. able to sit on EOB min A to CGA with use of bed rail for support. pt completed seated LAQs on BLE. pt refused to stand. pt requested to go back to bed and completed sit to supine max A x 3 and max cues. positioned pt in bed total A x 3 and max cues. call light and table placed within reach. M5 PT-IP Objective Assessments Start: 10/19/24 12:57 Freq: NEEDED Status: Active Protocol: Document 10/19/24 10:30 AB (Rec: 10/19/24 13:11 AB [id number]) Orientation Orientation/Cognition Level of Alertness Alert Orientation Name,Place,Situation Language Function Ability No Deficits Noted Safety Awareness Decreased Safety Awareness Memory Description Short Term Impaired Gross Range of Motion Lower Extremity ROM Impairments increase BLE guarding in movement with c/o pain limiting ROM testing Strength Lower Extremity Strength Assessment Bilaterally Impaired Comments Strength Comments LLE: 2-/5 RLE: 3-/5 Muscle Tone Muscle Tone WNL Yes M6 PT-IP Treatment Start: 10/19/24 12:57 Freq: NEEDED Status: Active Protocol: Document 10/23/24 13:30 AB (Rec: 10/23/24 15:14 AB [id number]) Physical Therapy Treatment Other Treatments Other Treatment Performed completed BLE LAQs in sitting position M7 PT-IP Assessment and Plan Start: 10/19/24 12:57 Freq: NEEDED Status: Active Protocol: Document 10/23/24 13:30 AB (Rec: 10/23/24 15:14 AB [id number]) PT Summary Assessment and Plan Potential Rehabilitation Potential Fair Summary Impairments Pain,ROM,Strength,Balance, Coordination,Sensation,Tone, Cognition,Bed Mobility, Transfers,Gait,Activity Tolerance Progress Towards Goals Slow Progress due to Pain,Slow Progress due to Medical Issues,Slow Progress due to Activity Tolerance,Slow Progress - Other Assessment Summary pt continues to require max A x2-3 to total A x 2-3 for mobility. pt continues to c/o BLE but was able to tolerate activity better today and was able to sit on EOB for ~ 10 min. pt will benefit from SNF rehab to improve strength and mobility. Goals Bed Mobility Goal Moderate Assistance Transfer Goal Moderate Assistance,Front Wheeled Walker Gait Goal Moderate Assistance,Front Wheel Walker Gait Distance 25 Other Goals improve bed mobility, transfers, ambulation using fWW ~ 50 ft SBA Days to Meet Goals 10 Frequency of Treatment Frequency Of Treatment Once a Day Treatment Plan Physical Therapy Treatment Plan Bed Mobility Training,Transfer Training,Gait Training, Therapeutic Exercise,Balance Retraining,Discharge Planning, Hot or Cold Pack,Neuromuscular Re-ed,Coordination Retraining ,Manual Therapy Precautions Other Precautions falls Recommendations To Nursing Amount of Assist Needed Mechanical Lift Discharge Recommendations PT Discharge Recommendations SNF Rehab Transportation Needs at Discharge Stretcher/Ambulance - PT assist 3
--- NOTE | 2024-10-23 13:40 | OT.IP.TRT ---
Current Diagnoses Heart failure, unspecified (10/19/24) Venous insufficiency (chronic) (peripheral) (10/19/24) Occupational Therapy Treatment Note M2 OT-IP Current Condition Start: 10/19/24 11:44 Freq: Status: Active Protocol: Document 10/19/24 11:44 [facility] (Rec: 10/19/24 12:00 [facility] [id number]) Occupational Therapy Current Condition Current Condition Evaluation Date 10/19/24 Treatment Diagnosis Cellulitis, acute on chronic heart failure exacerbation M3 OT- IP Subjective and Pain Start: 10/19/24 11:44 Freq: Status: Active Protocol: Document 10/23/24 15:01 [facility] (Rec: 10/23/24 15:06 [facility] Desktop) OT- Subjective Occupational Therapy Visit Type Type Treatment Note Visit Start Time 13:40 Visit Stop Time 14:10 Occupational Therapy Visit Comments Patient Comments Pt seen a second time as agreed to try to get up for PT . Patient/Caregiver Goals TO get better. OT Pain Assessment Pain When Pain Assessed At Rest Pain Present Pain Present Pain Reported Location Bilateral Leg Pain Behaviors Facial Grimacing Management Techniques Modification of Treatment,Re- positioning M4 OT- IP ADL's Start: 10/19/24 11:44 Freq: Status: Active Protocol: Document 10/22/24 13:51 [facility] (Rec: 10/22/24 13:58 [facility] Desktop) OT [id number] Comments OT Self-Feeding Comments not meal time OT ADL-Grooming General Evaluation Grooming Ability Standby Assistance Areas Needing Assistance Retrieving/Set-up of Grooming Items,Face Washing Comments OT Grooming Comments supported sitting in bed OT ADL-Oral Care General Eval Oral Care Ability Standby Assistance Areas of Assistance Brushing Teeth,Retrieving/Set- Up of Items Comments Oral Care Comments Pt used a sponge with tooth paste to wash out her mouth. OT ADL-Dressing General Eval Upper Body Dressing Ability Maximum Assistance Comments OT Dressing Comments hospital gown OT ADL-Toileting General Evaluation Toileting Ability Total Assistance Comments OT Toileting Comments pt wet, clothing removed, pt has been using the periwick OT ADL-Bathing Comments OT Bathing Comments not performed M5 OT- IP IADL's Start: 10/19/24 11:44 Freq: Status: Active Protocol: Document 10/19/24 11:44 [facility] (Rec: 10/19/24 12:00 [facility] [id number]) OT-Instrumental Activities of Daily Living Medication Management Medication Management Comments Per pt , her daughter assists with pill management needs via organizer. Money Management Money Management Caregiver Provides Assistance M6 OT- IP Functional Cognition Start: 10/19/24 11:44 Freq: Status: Active Protocol: Document 10/23/24 13:28 [facility] (Rec: 10/23/24 13:33 [facility] Desktop) Cognitive Factors Limiting Selfcare Function Cognitive Ability Level of Alertness Alert Patient Orientation Name,Age,Birthday,Month,Date, Year,Day of Week,Place, Situation Attention Span Ability Capable of Focused Attention, Capable of Sustained Attention Ability to Follow Commands Able to Follow One Step Commands Cognitive Tests SLUMS Pt scored 27/30 which implies normal for cognitive needs. Pt states feeling much better. Cognitive Comments Cognitive Assessment Comments Pt not wanting to get up at this time as still eating her lunch. Encouraged pt to sit up more in the bed, to better posture to eat. M7 OT- IP Mobility and Balance Start: 10/19/24 11:44 Freq: Status: Active Protocol: Document 10/23/24 15:01 [facility] (Rec: 10/23/24 15:06 [facility] Desktop) OT- Bed Mobility Assessment Supine to Sit Supine to Sit Assist Maximum Assistance,2 Person Assistance,Head of Bed Elevated,Bedrails Sit to Supine Sit to Supine Assist Total Assistance,2 Person Assistance OT-Transfer Assessment Comments Mobility Comments Pt needing MAX Ax2 to get to the edge of the bed. Pt needing initial MODA to sit upright and then at the end able to sit with CGA at times. Total assist x3 to help get back to bed. OT- Balance Assessment Sitting Balance and Reactions Static Sitting Balance Ability Fair Dynamic Sitting Balance Ability Poor M8 OT- IP Objective Assessments Start: 10/19/24 11:44 Freq: Status: Active Protocol: Document 10/19/24 11:44 [facility] (Rec: 10/19/24 12:00 [facility] [id number]) OT Gross Range of Motion Upper Extremity Range of Motion Assessment Left Impaired OT Strength Upper Extremity Strength Assessment Left Impaired Comments Strength Comments LUE 3-/5 to 4-/5 RUE 4+/5 OT Sensation Assessment Edema Edema Present Edema Comments BLE due to cellulitis M9 OT- IP Assessment and Plan Start: 10/19/24 11:44 Freq: Status: Active Protocol: Document 10/23/24 15:01 [facility] (Rec: 10/23/24 15:06 [facility] Desktop) OT Summary Assessment and Plan Potential Rehabilitation Potential Fair Analytic Complexity at Evaluation Moderate Summary OT Impairments Pain,Range of Motion,Strength, Balance,Functional Cognition, Functional Mobility,Self- Feeding,Grooming,Dressing, Toileting,Bathing,Toilet Transfers,Shower Transfers, Activity Tolerance Progress Towards Goals Progressing Toward Goals Assessment Summary Pt able to assist a little more with bed mobility needs and able to tolerate sitting at the edge of bed with assist . MAX AX 2 to get to the edge of the bed so able to do some self care needs. Total A x3 to help get back to bed. Pt to go to skilled rehab when medically stable. After rehab, most likely pt's family will have to give pt more assist with all her needs. Goals Self-Feeding Goal Independent Grooming Goal Independent Dressing Goal Moderate Assistance Toileting Goal Minimal Assistance Bathing Goal Moderate Assistance Toilet Transfer Goal Moderate Assistance Shower Transfer Goal Moderate Assistance Days to Meet Goals 30 Frequency of Treatment Other frequency 3-5x/week Treatment Plan OT Treatment Plan ADL Training,Functional Cognition Training,Functional Mobility,Patient/Family Education,Discharge Planning Discharge Recommendations OT Discharge Recommendations SNF Rehab Transportation Needs at Discharge Stretcher/Ambulance
[2024-10-23] MEDS: cefTRIAXone 2,000 MG in SODIUM CHLORIDE 0.9% 100 ML 200 MG IV (15:32)
--- NOTE | 2024-10-23 15:59 | CM.DPC ---
DCP Cont. Reviewed EMR and team rounds for status updates. Pt's family changed their mind at the last minute and did not want pt going to [facility]. They called [facility] where her son Prosper works, and even though they said they were full as of yesterday, stated that they had a bed. Faxed clinicals to [facility]. Will need to arrange for new BLS transport once [facility] calls back to confirm acceptance. Family aware.
[2024-10-23] MEDS: ATORVASTATIN 20 MG TABLET 80 MG PO (21:16)
[2024-10-24] MEDS: FUROSEMIDE 40 MG/4 ML VIAL IV ×2 (00:23→08:55)
[2024-10-24 04:11] VITALS: BP 148/49; PULSE 87; RESP 20; TEMP 36.8; O2SAT 94
[2024-10-24] MEDS: HYDROCODONE/ACET 5/325 TABLET 1 TAB PO ×2 (04:17→08:55)
[2024-10-24 06:20] LABS: BUN Creatinine Ratio 40.2 (6-22); Blood Urea Nitrogen 43 mg/dL (7-17); Calcium 8.5 mg/dL (8.4-10.2); Carbon Dioxide 35 mmol/L (22-32); Chloride 95 mmol/L (98-107); Estimated Glomerular Filt Rate 54 mL/min (>60); Glucose 119 mg/dL (80-110); HEMOLYSIS < 15 (0-50); Magnesium 1.5 mg/dL (1.6-2.3); Potassium 3.7 mmol/L (3.4-5.1); Sodium 134 mmol/L (137-145)
[2024-10-24] MEDS: PANTOPRAZOLE DR 40 MG TABLET PO (06:35)
[2024-10-24 08:00] VITALS: PULSE 90; RESP 20; TEMP 36.6; O2SAT 92
--- NOTE | 2024-10-24 08:47 | CM.DPC ---
DCP Cont. Reviewed EMR and team rounds for pt's status updates. Recieved t/c from [facility] that they can accept. Will send d/c clinicals once available, PASSAR completed. BLS transport is set up for 11:00am. Notified family of plan, no further CM d/c needs identified at this time.
[2024-10-24] MEDS: SODIUM CHLORIDE 0.9% FLUSH 10 ML IV (08:55)
[2024-10-24] MEDS: APIXABAN 5 MG TABLET PO (08:55)
[2024-10-24] MEDS: CLOPIDOGREL 75 MG TABLET PO (08:55)
[2024-10-24 09:07] LABS: Alanine Aminotransferase 53 IU/L (<35); Albumin 3.2 g/dL (3.5-5.0); Albumin Globulin Ratio 0.7 (1.0-2.8); Alkaline Phosphatase 105 U/L (38-126); Aspartate Aminotransferase 101 IU/L (14-36); BUN Creatinine Ratio 37.1 (6-22); Bilirubin Total 0.5 mg/dL (0.2-1.3); Blood Urea Nitrogen 43 mg/dL (7-17); Calcium 8.5 mg/dL (8.4-10.2); Carbon Dioxide 35 mmol/L (22-32); Chloride 95 mmol/L (98-107); Estimated Glomerular Filt Rate 49 mL/min (>60); Globulin 4.8 g/dL (1.7-4.1); Glucose 119 mg/dL (80-110); HEMOLYSIS < 15 (0-50); Potassium 3.8 mmol/L (3.4-5.1); Sodium 136 mmol/L (137-145)
[2024-10-24] MEDS: MAGNESIUM CHLORIDE 64 MG TABLET 128 MG PO (11:15)
--- NOTE | 2024-10-24 11:22 | PC.NURSE ---
Day shift: Discharge orders received, placed signed script and signed medication list in packet with discharge information. Called Alysha at [facility] and gave report. PIV and tele removed prior to discharge. All belongings with BLS team, including packet for [facility]. BLS team took patient to exit via stretcher.
[2024-10-25 01:07] LABS: Methylmalonic Acid,Serum 1178 nmol/L (0-378)
== END 2024-10-24 11:25 | DRG 291 ==
LOC: ED 10-19 00:49 → AC 10-19 00:51 → ICU 10-19 01:15 → AC 10-19 01:25
PROVIDERS: Internal Medicine; Pharmacist Pharmacist Clinician (PhC)/ Clinical Pharmacy Specialist; Admitting Provider Internal Medicine; Emergency Provider Emergency Medicine; PCP Physician Assistant; Referring Provider Emergency Medicine; Visit Provider Internal Medicine
DX: I11.0 Hypertensive heart disease with heart failure (principal); I50.33 Acute on chronic diastolic (congestive) heart failure; L03.116 Cellulitis of left lower limb; L03.115 Cellulitis of right lower limb; D64.9 Anemia, unspecified; E78.5 Hyperlipidemia, unspecified; G89.29 Other chronic pain; I48.91 Unspecified atrial fibrillation; J44.9 Chronic obstructive pulmonary disease, unspecified; I87.2 Venous insufficiency (chronic) (peripheral); Z86.73 Personal history of transient ischemic attack (TIA), and cerebral infarction without residual deficits; Z87.891 Personal history of nicotine dependence; Z79.02 Long term (current) use of antithrombotics/antiplatelets
CPT/HCPCS: 36415; 71045; 80048; 80053; 81001; 82550; 82607; 82728; 83540; 83550; 83690; 83735; 83880; 83921; 84443; 84484; 85025; 85610; 85730; 87070; 87075; 87077; 87086; 87186; 87205; 93005; 93306; 93970; 94640; 94762; 96365; 96375; 97129; 97163; 97166; 97530; 97535; 99284; 99285; G0378; J0696; J1644; J1938; J2270; J3475; J7613